=== PATIENT | male | born 1965 | race Caucasian/White ===

== ENCOUNTER 2018-08-21 22:50 | Inpatient (IN) ==
[2018-08-21] MEDS: NS IV ONE ×6 (23:13→23:59)
[2018-08-21 23:42] LABS: BASO# 0.03 X1000 (0.0-0.2); BASO% 0.2 % (0.0-0.8); EOS# 0.13 X1000 (0.0-0.7); EOS% 0.9 % (0.0-10.0); HEMATOCRIT 47.1 % (42.0-52.0); HEMOGLOBIN 15.8 g/dL (14.0-18.0); IMM GRAN# 0.02 X1000 (0.0-0.04); IMM GRAN% 0.1 % (0.0-0.5); LYMPH# 1.47 X1000 (1.2-3.4); LYMPH% 9.7 % (20.5-51.1); MCH 29.3 PG (27-31); MCHC 33.5 g/dL (33-37); MCV 87.2 FL (81-99); MONO# 0.87 X1000 (0.11-0.59); MONO% 5.7 % (1.7-9.3); MPV 9.4 FL (7.4-10.4); NEUT# 12.63 X1000 (1.4-6.5); NEUT% 83.4 % (42.2-75.2); PLT 262 X1000 (130-400); RDW 14.3 % (11.5-14.5); WBC 15.15 X1000 (4.8-10.8)
[2018-08-21] MEDS ORDERED: VANCOMYCIN 1 GM/NS 1 GM/250 ML IVPB IV ONE (23:48)
[2018-08-21] MEDS ORDERED: ZOSYN 3.375 GM in NS 50 ML IV ONE (23:48)
[2018-08-21 23:50] LABS: URINE SOURCE CATH
[2018-08-21] MEDS ORDERED: NS 3,000 ML ONE (23:52)
[2018-08-21 23:55] LABS: BILIRUBIN URINE NEGATIVE (NEGATIVE); BLOOD URINE NEGATIVE (NEGATIVE); COLOR YELLOW; GLUCOSE URINE NEGATIVE (NEGATIVE); KETONE URINE TRACE mg/dL (NEGATIVE); LEUKOCYTES URINE MODERATE (NEGATIVE); NITRITE URINE NEGATIVE (NEGATIVE); PH URINE 5.5; PROTEIN URINE TRACE mg/dL (NEGATIVE); SP GRAVITY URINE 1.026; TURBIDITY URINE CLEAR (CLEAR); UROBILINOGEN URINE 2 mg/dL (NORMAL)
[2018-08-21 23:56] LABS: UR EPITHELIAL CELLS <10 /HPF (<10); URINE BACTERIA NEGATIVE /HPF; URINE RBC <10 /HPF (<10); URINE WBC TNTC /HPF (<10)
[2018-08-22 00:10] LABS: AGAP 11; ALB/GLOB RATIO 1.2; ALBUMIN 3.9 g/dL (3.5-5.0); ALKALINE PHOSPHATASE 54 U/L (32-122); BUN 19 mg/dL (8-22); CALCIUM 8.8 mg/dL (8.8-10.2); CHLORIDE 103 mmol/L (98-107); COSMO 286; CREATININE 0.8 mg/dL (0.7-1.2); ESTIMATED GFR > 60; GLUCOSE 216 mg/dL (70-104); GOT 16 U/L (10-34); GPT 8 U/L (10-44); POTASSIUM 4.3 mmol/L (3.5-5.1); SODIUM 139 mmol/L (136-145); TCO2 25 mmol/L (25-35); TOTAL BILIRUBIN 0.37 mg/dL (0.20-1.00); TOTAL PROTEIN 7.2 g/dL (6.3-8.3)
[2018-08-22] MEDS ORDERED: NS 1,000 ML IV SCH (00:15)
[2018-08-22] MEDS ORDERED: NS 700 ML IV ONE (00:19)
[2018-08-22 00:37] LABS: ALLEN TEST YES; BE 1.6 mmoll (-3.0-3.0); BLOOD TYPE ARTERIAL; O2(CT) 21.3 mL/dL (15.0-23.0); O2HB 93.5 % (95.0-99.0); PCO2(98.6) 42 mmHg (35-45); PO2(98.6) 68 mmHg (60-100); SAMPLE BLOOD; SAO2 96.2 % (95.0-100.0); THB 16.2 g/dL (11.5-17.4); pH(98.6) 7.41 (7.35-7.45)
[2018-08-22 00:39] LABS: MODALITY CANNULA
--- NOTE | 2018-08-22 00:46 | PROVIDER DOCUMENTATION ---
This chart was entered by Kat Bailey Scribe, acting as scribe for Eduardo Rojo MD. HPI-Respiratory General - General Chief Complaint: Shortness of Breath Stated Complaint: aspiration Time Seen by Provider: 08/21/18 23:11 Source: RN/, EMS Allergies/Adverse Reactions: Patient Allergies Allergy/AdvReac Type Severity Reaction Status Date / Time sedative and relaxants AdvReac Mild makes pt Uncoded 04/10/16 10:07 wild Home Medications: Home Medication List Medication Instructions Recorded Confirmed Last Taken Type Polyethylene Glycol 3350 [Miralax] 17 gm PO HS PRN #30 powd.pack 05/16/13 04/10/16 03/21/16 06:00 Rx 17 GM Pramipexole Di-HCl [Mirapex] 1.5 mg PO TID 05/28/14 04/10/16 04/10/16 06:00 History 1.5 MG Ascorbic Acid [Vitamin C] 1,000 mg PO DAILY 05/29/14 04/10/16 04/09/16 06:00 History 1000 MG Multivitamin [Roger Multivitamin] 1 each PO DAILY 05/29/14 04/10/16 04/09/16 06:00 History 1 EACH Mjugyfaw-Ozpbmzn-Xotv 149-Hyal 1 each PO DAILY 05/05/15 04/10/16 04/09/16 06:00 History [Glucosamine Chondroitin Tablet] 1 EACH Psyllium Husk [Fiber] 0.52 gm PO DAILY 05/05/15 04/10/16 04/09/16 06:00 History 0.52 GM Acetaminophen [Tylenol] 650 mg PO Q6H PRN PRN #0 tablet 04/16/16 Unknown Rx Levalbuterol Neb [Xopenex Neb] 1.25 mg INH RTQ4H PRN #5 neb 04/16/16 Unknown Rx Carbidopa/Levodopa [Sinemet 25/100] 2 each PO 0700,1100,1600,2000 #0 04/21/16 Unknown Rx tablet Docusate Sodium [Colace] 100 mg PO BID #0 capsule 04/21/16 Unknown Rx Bisacodyl [Dulcolax] 10 mg MS QHS #0 supp 05/02/16 Unknown Rx Levetiracetam [Keppra] 500 mg PO BID #60 tablet 05/02/16 Unknown Rx Tamsulosin [Flomax] 0.4 mg PO BID #0 capsule 05/02/16 Unknown Rx - History of Present Illness-Resp Nature of Presenting Problem: 53 yom presents to er w/rn and ems w/cc pt is non verbal and has hx of cerebral palsy. ems sts that pt aspirated, suctioned 50-75CC of brown/parnell fluid from lungs station captain. rn sts pt is from [facility], had sob and aspirated. Context: reports: aspiration/choking Review of Systems - Adult - REVIEW OF SYSTEMS - ADULT ROS:: limited per condition (pt is nonverbal and has cerebral palsy, won't cooperate) Constitutional: reports: no symptoms reported Eyes: reports: no symptoms reported Ears, Nose, Mouth & Throat: reports: no symptoms reported Cardiovascular: reports: no symptoms reported Respiratory: reports: see HPI, shortness of breath, other (aspiration). denies: chronic cough, cough, pleurisy Gastrointestinal: reports: no symptoms reported Genitourinary: reports: no symptoms reported Musculoskeletal: reports: no symptoms reported Integumentary: reports: no symptoms reported Neurological: reports: no symptoms reported Psychiatric: reports: no symptoms reported Endocrine: reports: no symptoms reported Hematologic/Lymphatic: reports: no symptoms reported Allergic/Immunologic: reports: no symptoms reported All Other Systems: Reviewed and Negative Past History - Adult - PAST MEDICAL HISTORY-ADULT Review of Records: reports: Old Records Reviewed, Nursing Assessment Review, Medications Reviewed, Social history reviewed & non-contributory. Major Childhood Illnesses: reports: denies history Cardiovascular: reports: CAD Respiratory: reports: asthma Gastrointestinal: reports: GERD Obstetrical/Gynecological: reports: denies history Genitourinary: reports: denies history Musculoskeletal: reports: denies history Neurological: reports: Seizures/Epilepsy (childhood) Psychiatric: reports: other (mild MR) Endocrine/Immune: reports: denies history Other Conditions: reports: other (cereberal palsy) - PRIOR SURGERIES/PROCEDURES Surgical/Procedure History: reports: orthopedic (extremity) (foot), other (heart surgery as a child) - PRIOR HOSPITALIZATIONS Prior Hospitalizations: reports: for other non-related - IMMUNIZATION STATUS Childhood Immunizations: See Nurse Assessment Flu Vaccine: See Nurse Assessment - FAMILY HISTORY Family History: reviewed, not pertinent - SOCIAL HISTORY Smoking: non-smoker Substance Use: none/never Physical Exam-General - PHYSICAL EXAM-ADULT Initial Vital Signs Reviewed: Yes - CONSTITUTIONAL General Appearance: mild distress, other (pt grunting inchoerently in room). negative: cachetic, anxious, combative - EYES Eyes: other (pt refused to do eye exam) - HEAD, EARS, NOSE, MOUTH & THROAT HENMT: normocephalic/atraumatic. negative: moist mucous membranes, normal ENT inspection (unable to examine pt due to him being uncooperative, pt sucked on tongue depressor) - NECK Neck: full range of motion, supple, normal inspection - RESPIRATORY Respiratory: chest non-tender, lungs clear, normal breath sounds - CARDIOVASCULAR Cardiovascular: normal peripheral pulses, regular rate, rhythm - MUSCULOSKELETAL Back Exam: normal inspection Extremity: normal range of motion, non-tender, normal inspection Peripheral Pulses: radial (R): 2+, radial (L): 2+ - SKIN Integumentary: normal color, normal turgor, warm/dry - NEUROLOGIC Neurologic: grossly normal, no motor/sensory deficits. negative: reference librarian II-XII nml as tested - PSYCHIATRIC Psych/Mental Status: disoriented x 3. negative: oriented x 3 Progress - PLAN OF CARE/RESULTS Progress/Plan/Lab Results: Vital Signs - 8 hr 08/21/18 23:00 Temperature 97.7 F Pulse Rate 120 H Respiratory Rate 18 Blood Pressure 113/72 O2 Sat by Pulse Oximetry 93 L Laboratory Results - last 24 hr 08/21/18 08/21/18 08/21/18 23:19 23:30 23:30 WBC 15.15 H RBC 5.40 Hgb 15.8 Hct 47.1 MCV 87.2 MCH 29.3 MCHC 33.5 RDW Std Deviation 14.3 Plt Count 262 MPV 9.4 Immature Gran % (Auto) 0.1 Neut % (Auto) 83.4 H Lymph % (Auto) 9.7 L [place] % (Auto) 5.7 Eos % (Auto) 0.9 Baso % (Auto) 0.2 Immature Gran # (Auto) 0.02 Neut # (Auto) 12.63 H Lymph # (Auto) 1.47 [place] # (Auto) 0.87 H Eos # (Auto) 0.13 Baso # (Auto) 0.03 Specimen Type Sample Site pH pCO2 pO2 HCO3 Base Excess Oxyhemoglobin ABG O2 Sat (Calculated) ABG O2 Saturation ABG Carboxyhemoglobin ABG Methemoglobin Missael Test A-a O2 Difference Total Hemoglobin Lactate Liter Flow Blood Gas Modality FiO2 % Sodium 139 Potassium 4.3 Chloride 103 Carbon Dioxide 25 Anion Gap 11 BUN 19 Creatinine 0.8 Estimated GFR/1.73 m2 > 60 BUN/Creatinine Ratio 24 Glucose 216 H Calculated Osmolality 286 Calcium 8.8 Total Bilirubin 0.37 AST 16 ALT 8 L Alkaline Phosphatase 54 Total Protein 7.2 Albumin 3.9 Globulin 3.3 Albumin/Globulin Ratio 1.2 Plasma Lactate Urine Source CATH Urine Color YELLOW Urine Turbidity CLEAR Urine pH 5.5 Ur Specific [place] 1.026 Urine Protein TRACE A Ur Glucose (Stick) NEGATIVE Ur Ketones (Stick) TRACE A Urine Blood NEGATIVE Urine Nitrite NEGATIVE Urine Bilirubin NEGATIVE Urobilinogen Dipstick 2 A Urine Leukocytes MODERATE A Urine WBC (Auto) TNTC A Urine RBC (Auto) <10 U Epithel Cells (Auto) <10 Urine Bacteria (Auto) NEGATIVE 08/21/18 08/22/18 23:30 00:30 WBC RBC Hgb Hct MCV MCH MCHC RDW Std Deviation Plt Count MPV Immature Gran % (Auto) Neut % (Auto) Lymph % (Auto) [place] % (Auto) Eos % (Auto) Baso % (Auto) Immature Gran # (Auto) Neut # (Auto) Lymph # (Auto) [place] # (Auto) Eos # (Auto) Baso # (Auto) Specimen Type ARTERIAL Sample Site R RADIAL pH 7.41 pCO2 42 pO2 68 HCO3 26.0 Base Excess 1.6 Oxyhemoglobin 93.5 L ABG O2 Sat (Calculated) 21.3 ABG O2 Saturation 96.2 ABG Carboxyhemoglobin 1.80 ABG Methemoglobin 1.0 Missael Test YES A-a O2 Difference 108.0 Total Hemoglobin 16.2 Lactate 1.80 Liter Flow 3.0 Blood Gas Modality CANNULA FiO2 % 32.0 Sodium Potassium Chloride Carbon Dioxide Anion Gap BUN Creatinine Estimated GFR/1.73 m2 BUN/Creatinine Ratio Glucose Calculated Osmolality Calcium Total Bilirubin AST ALT Alkaline Phosphatase Total Protein Albumin Globulin Albumin/Globulin Ratio Plasma Lactate 1.6 Urine Source Urine Color Urine Turbidity Urine pH Ur Specific [place] Urine Protein Ur Glucose (Stick) Ur Ketones (Stick) Urine Blood Urine Nitrite Urine Bilirubin Urobilinogen Dipstick Urine Leukocytes Urine WBC (Auto) Urine RBC (Auto) U Epithel Cells (Auto) Urine Bacteria (Auto) Orders Category Date Time Status CHEST-1 VIEW [RAD] Stat Exams 08/21/18 23:13 Taken ABG [RESP] Routine Lab 08/21/18 23:24 Completed BLOOD CULTURE [BLDCUL] Stat Lab 08/21/18 23:30 Results CBC WITH DIFF [HEME] Stat Lab 08/21/18 23:30 Completed COMPREHENSIVE METABOLIC PANEL [CHEM] Stat Lab 08/21/18 23:30 Completed LACTATE, PLASMA [CHEM] Stat Lab 08/21/18 23:30 Completed URINALYSIS W/POSS RFLX CULT [URINALYSIS] Stat Lab 08/21/18 23:19 Completed URINE CULTURE [RM] Routine Lab 08/22/18 00:00 Received 0.9% Sodium Chloride Inj [Ns] 1,000 ml Med 08/21/18 23:13 Discontinued 0.9% Sodium Chloride Inj [Ns] 1,000 ml 0.9% Sodium Chloride Inj [Ns] 700 ml IV 999 mls/hr 0.9% Sodium Chloride Inj [Ns] 1,000 ml Med 08/22/18 00:15 Discontinued IV Q1H 0.9% Sodium Chloride Inj [Ns] 700 ml Med 08/22/18 00:19 Active IV ONCE Piperacillin/Tazobactam [Zosyn] 3.375 gm Med 08/21/18 23:48 Discontinued 0.9% Sodium Chloride Inj [Ns] 50 ml IV NOW Vancomycin 1 gm/Ns Med 08/21/18 23:48 Active 1 gm in 250 ml IV NOW Result Diagrams: 08/21/18 23:30 08/21/18 23:30 - EKG 1 Time of EKG reading by physician:: 23:12 EKG Read and Signed by:: Eduardo Rojo EKG Interpretation (*Must complete 3 of following elements*): Abnormal Rate: 118 (possible left atrial enlargement ) Rhythm: ST QRS: RBB MS Interval: normal ST Wave: normal - CONSULTS/PCP/HOSPITALIST Notification #1 *Consult/PCP/Hospitalist*: Alexis Time Discussed: 00:00 Consult Disposition: Will see in ED, Admit Departure - Departure Date of Disposition Decision: 08/22/18 Time of Disposition Decision: 00:08 DIAGNOSIS: Aspiration pneumonia Qualifiers: Aspiration pneumonia type: due to regurgitated food Laterality: unspecified laterality Lung location: unspecified part of lung Qualified Code(s): J69.0 - Pneumonitis due to inhalation of food and vomit Urinary tract infection Qualifiers: Urinary tract infection type: acute cystitis Hematuria presence: without hematuria Qualified Code(s): N30.00 - Acute cystitis without hematuria Disposition: ADMITTED INPATIENT 09 Certified Medical Emergency: Urgent Condition: Fair Referrals and Follow-Ups: None,PCP [Primary Care Provider] - - Critical Care Note This patient required my direct & personal management of CC.: No Attestation - Physician/ LESIA Attestation Patient care was provided by Advanced Practice Provider:: No The physician spent face to face time with patient:: Yes Advanced Practice Provider documentation review:: Supervising physician onsite and consulted in the evaluation and care of this patient. The physician did have a face to face encounter with the patient. This chart was documented by the indicated scribe, (Kat Bailey Scribe) and accurately reflects the services I performed and decisions made by me, Eduarod Rojo MD, as attested by the provider's signature.
--- NOTE | 2018-08-22 02:37 | HISTORY AND PHYSICAL ---
PRIMARY CARE PHYSICIAN: Unknown. CHIEF COMPLAINT: Shortness of breath, possible aspiration. HISTORY OF PRESENTING ILLNESS: The patient is a 53-year-old male with a history of cerebral palsy, Parkinson's and seizure disorder who resides at [facility] and was sent to the emergency department due to the patient having shortness of breath. It was suspected possibly he aspirated. The patient basically was not communicative at the time of my examination, and most of the history is obtained from his mother. His mother states that he was not feeling well and the skilled nursing called her. PAST MEDICAL HISTORY: Includes cerebral palsy, Parkinson's, seizure disorder. PAST SURGICAL HISTORY: Tetralogy of Fallot repair. ALLERGIES: To sedatives and relaxants. CURRENT MEDICATIONS: Include Tylenol 50 mg p.o. q.6 hours, ascorbic acid 1000 mg p.o. daily, carbidopa levodopa 2500 two tablets p.o. q.i.d., Xopenex nebulizers q.4 hours, Keppra 500 mg p.o. b.i.d., Mirapex 1.5 mg p.o. t.i.d., Flomax 0.4 mg p.o. b.i.d. SOCIAL HISTORY: No history of smoking, alcohol or illicit drug use. He resides at [facility]. FAMILY HISTORY: No history of coronary disease. REVIEW OF SYSTEMS: Unable to obtain because the patient did not want to communicate. PHYSICAL EXAMINATION: GENERAL: The patient is somewhat in moderate respiratory distress. He is put on supplemental oxygen and deep suctioning was done. VITAL SIGNS: Temperature 97.7 degrees, pulse 120, respiration 18, blood pressure 113/72. HEENT: Atraumatic, normocephalic. NECK: No masses. CHEST: Rhonchi. CARDIOVASCULAR: Regular rate and rhythm. ABDOMEN: Soft. Positive bowel sounds. EXTREMITIES: No edema. NEUROLOGIC: He is awake and alert. GENITOURINARY: No bladder distention. SKIN: Warm. LABORATORIES AND STUDIES: WBC 15.15, hemoglobin 15.8, hematocrit 47.1, platelets 262,000. Sodium 139, potassium 4.3, chloride 103, CO2 is 25, BUN is 19, creatinine is 0.8, glucose 216. ASSESSMENT: The patient is a 53-year-old male with a history of cerebral palsy, Parkinson's and seizure disorder who was sent from [facility] due to the patient having shortness of breath. It was suspected possibly he aspirated. He was evaluated in the emergency department. He had imaging done as per the emergency room physician, it seemed that he had aspiration pneumonia. He seemed to be somewhat in respiratory distress. He had a deep suctioning by respiratory; however, he will need to be admitted to the Intensive Care Unit for further evaluation and management. 1. Suspected aspiration pneumonia. 2. Respiratory distress. 3. Cerebral palsy. 4. Seizure disorder. PLAN: 1. We will admit the patient to ICU. 2. We will check blood cultures and start the patient on IV antibiotics. 3. We will continue with deep suctioning. 4. Continue with DuoNebs. 5. If he worsens the patient may have to be intubated. 6. We will put the patient on seizure precautions. 7. We will restart his home medications. 8. We will put patient on DVT prophylaxis with SCD. 9. We will continue to follow, reassess and make further recommendation based on the patient's clinical course. The patient's condition is guarded. cc: Reji Espinoza MD
[2018-08-22] MEDS ORDERED: ZOSYN 3.375 GM in NS 50 ML IV SCH (02:53)
[2018-08-22] MEDS ORDERED: NS NEB INH SCH (02:53)
[2018-08-22] MEDS ORDERED: OFIRMEV 1000 MG/ISOTONIC SOLN 1,000 MG/100 ML BOTTLE IV ONE (03:10)
[2018-08-22] MEDS ORDERED: CALMOSEPTINE OINTMENT TOP PRN (04:59)
--- NOTE | 2018-08-22 05:35 | Diag Imaging Result Doc PS360 ---
EXAM: CHEST-1 VIEW HISTORY: sepsis TECHNIQUE: Chest single view COMPARISON: 04/29/2016 FINDINGS: The lungs are well expanded. The heart is not enlarged. There are mild increased interstitial markings. No effusion identified. There are several old rib fractures. The IMPRESSION: Small infiltrates versus pulmonary edema. Electronically signed by El Che 08/22/2018 5:32 AM
--- NOTE | 2018-08-22 07:54 | EKG Report ---
Test Performed on : 08/21/2018 11:08:33 PM Test Reason : ASPIRATION Blood Pressure : / mmHG Vent. Rate : 118 BPM Atrial Rate : 118 BPM P-R Int : 136 ms QRS Dur : 148 ms QT Int : 348 ms P-R-T Axes : 059 267 057 degrees QTc Int : 487 ms Sinus tachycardia. Possible Left atrial enlargement Right bundle branch block Abnormal ECG When compared with ECG of 10-APR-2016 09:38, No significant change was found Unconfirmed Result
[2018-08-22] MEDS: XOPENEX NEB INH SCH ×6 (08:11→22:58)
[2018-08-22] MEDS ORDERED: MIRALAX PO PRN (08:34)
[2018-08-22] MEDS ORDERED: MIRAPEX PO SCH (09:00)
--- NOTE | 2018-08-22 09:22 | PROGRESS NOTE ---
DATE: 08/22/2018 INTERVAL HISTORY: Mr. Reynaga was admitted for acute hypoxic respiratory failure and left lower lobe pneumonia leading to sepsis. Overnight in ICU, he did not have any acute events. His heart rate has decreased and he has not had any more fever episodes. SUBJECTIVE: The patient is minimally verbal. The patient's mother is at bedside. She feels that the patient is looking significantly better. The patient has been having coughing for a few weeks now, especially at the time of eating. OBJECTIVE: Vitals: Temperature 98.7 degrees, pulse 90, respiratory rate 17, blood pressure 110/70, saturating 99% on Venturi mask. General: Does not appear in any acute distress. He keeps on moaning and groaning, which is baseline for him. Cardiovascular: S1, S2 appears normal. No wheeze, no murmur, rub or gallop. Lungs: Air entry decreased on left inframammary region with inspiratory crackles. No wheeze or rhonchi. Abdomen: Soft, nontender. He has urine catheter. Extremities: No lower extremity edema. Neurologic: He is drowsy, but arousable. LABORATORIES: His ABG had a PO2 of 68 on nasal cannula. His electrolytes were otherwise unremarkable. Urine culture and blood culture is in lab. He was not having any urinary symptoms though. ASSESSMENT: 1. Sepsis and acute hypoxic respiratory failure, likely due to left lower lobe aspiration pneumonia. 2. History of cerebral palsy, Parkinson's disease and seizure disorder. PLAN: I will change antibiotics to intravenous ceftriaxone and metronidazole. I will get a urine Streptococcus and Legionella antigen and I will follow up final blood culture results. I will get MAKING DEPARTMENT PREPARER evaluation Ccontinue to monitor patient in ICU for another 24 hours. Plan of care discussed with patient's mother. All of her questions have been answered. I will also resume most of the home medications for Parkinson's disease, cerebral palsy and seizure. TIME SPENT: More than 30 minutes of critical care time was spent in taking care of this patient. cc: Trent Benjamin MD [facility]
[2018-08-22] MEDS: COLACE PO SCH ×3 (09:27→22:08)
[2018-08-22] MEDS: SINEMET CR 25/100 PO SCH ×3 (09:28→22:08)
[2018-08-22] MEDS: MIRAPEX PO SCH ×3 (09:28→22:08)
[2018-08-22] MEDS: KEPPRA PO SCH ×3 (09:28→22:12)
[2018-08-22] MEDS: METAMUCIL PO SCH ×2 (09:29→10:00)
[2018-08-22] MEDS: CENTRUM SILVER PO SCH ×2 (09:29→09:59)
[2018-08-22] MEDS: AYR NASAL SPRAY NAS SCH ×2 (09:30→22:11)
[2018-08-22] MEDS: ROCEPHIN 1 GM in NS 50 ML IV SCH (09:31)
[2018-08-22] MEDS: FLOMAX PO SCH ×3 (09:31→22:08)
[2018-08-22] MEDS: FLAGYL 500 MG/NS 500 MG/100 ML IVPB IV SCH ×2 (09:31→16:50)
[2018-08-22] MEDS ORDERED: PRILOSEC PO SCH (11:00)
[2018-08-22] MEDS: RASAGILINE MESYLATE PO SCH (13:27)
[2018-08-22] MEDS: LR 1,000 ML IV SCH (16:03)
--- NOTE | 2018-08-22 16:10 | Diag Imaging Result Doc PS360 ---
CHEST-PORTABLE - 08/22/2018 INDICATION: NGT placement COMPARISON: 08/21/2018 FINDINGS: There is a nasogastric tube in good position in the stomach. IMPRESSION: Nasogastric tube in the stomach. Electronically signed by Hema Solis 08/22/2018 4:08 PM
[2018-08-23] MEDS: FLAGYL 500 MG/NS 500 MG/100 ML IVPB IV SCH ×3 (01:26→16:36)
[2018-08-23] MEDS: XOPENEX NEB INH SCH ×6 (02:50→23:19)
[2018-08-23] MEDS: LR 1,000 ML IV SCH (06:21)
[2018-08-23] MEDS: SINEMET 25/100 PO SCH (06:23)
[2018-08-23 07:10] LABS: AGAP 11; BUN 16 mg/dL (8-22); CALCIUM 8.4 mg/dL (8.8-10.2); CHLORIDE 103 mmol/L (98-107); COSMO 281; CREATININE 0.7 mg/dL (0.7-1.2); ESTIMATED GFR > 60; GLUCOSE 139 mg/dL (70-104); POTASSIUM 4.2 mmol/L (3.5-5.1); SODIUM 139 mmol/L (136-145); TCO2 25 mmol/L (25-35)
[2018-08-23 07:15] LABS: BASO# 0.04 X1000 (0.0-0.2); BASO% 0.2 % (0.0-0.8); EOS# 0.53 X1000 (0.0-0.7); EOS% 2.7 % (0.0-10.0); HEMATOCRIT 45.3 % (42.0-52.0); HEMOGLOBIN 14.9 g/dL (14.0-18.0); IMM GRAN# 0.04 X1000 (0.0-0.04); IMM GRAN% 0.2 % (0.0-0.5); LYMPH# 1.85 X1000 (1.2-3.4); LYMPH% 9.3 % (20.5-51.1); MCH 29.7 PG (27-31); MCHC 32.9 g/dL (33-37); MCV 90.2 FL (81-99); MONO% 4.5 % (1.7-9.3); MPV 9.7 FL (7.4-10.4); NEUT# 16.51 X1000 (1.4-6.5); NEUT% 83.1 % (42.2-75.2); PLT 179 X1000 (130-400); RBC 5.02 XMIL (4.7-6.1); RDW 14.7 % (11.5-14.5); WBC 19.87 X1000 (4.8-10.8)
[2018-08-23 07:46] LABS: ALBUMIN 3.2 g/dL (3.5-5.0); MAGNESIUM 2.2 mg/dL (1.5-2.7); PHOSPHORUS 2.7 mg/dL (2.7-4.5); PREALBUMIN 11.7 mg/dL (20-40)
[2018-08-23] MEDS ORDERED: VASELINE TOP PRN (08:59)
[2018-08-23] MEDS: COLACE PO SCH ×2 (09:18→20:05)
[2018-08-23] MEDS: METAMUCIL PO SCH (09:19)
[2018-08-23] MEDS: KEPPRA PO SCH ×2 (09:19→20:05)
[2018-08-23] MEDS: MIRAPEX PO SCH ×2 (09:19→20:05)
[2018-08-23] MEDS: CENTRUM SILVER PO SCH (09:19)
[2018-08-23] MEDS: SINEMET CR 25/100 PO SCH ×2 (09:20→20:05)
[2018-08-23] MEDS: FLOMAX PO SCH ×2 (09:20→20:05)
[2018-08-23] MEDS: LOVENOX SUBQ SCH (09:20)
[2018-08-23] MEDS: AYR NASAL SPRAY NAS SCH (09:20)
[2018-08-23] MEDS: RASAGILINE MESYLATE PO SCH (11:00)
[2018-08-23] MEDS: ROCEPHIN 1 GM in NS 50 ML IV SCH (11:01)
--- NOTE | 2018-08-23 12:31 | PROGRESS NOTE ---
DATE: 08/23/2018 INTERVAL HISTORY: No acute events overnight. He does not have any fever episode. He had failed his swallow evaluation yesterday and an NG tube was placed and NG tube feeding was started. VITALS: Currently, he has been afebrile with temperature of 98.3 degrees, pulse of 94, respiratory rate 19, blood pressure 99/52. He is saturating 97% on 50% Ventimask. PHYSICAL EXAMINATION: General: Does not appear in any acute distress. He keeps on moaning during examination, which is his baseline. Oral cavity is dry. Lungs: Air entry decreased with inspiratory crackles on the left inframammary region. No wheeze or rhonchi. S1, S2 normal. No murmur, rub, or gallop. Abdomen: Soft, nontender. He has urine catheter. No lower extremity edema. He is alert on my repeat examination and he is interactive with his family by mostly gestures and yes or no. LABS: Suggestive of persistent leukocytosis. Normal hemoglobin, hematocrit, and platelet count. His electrolytes are within acceptable range. MICROBIOLOGY: Blood culture is in lab. Urine culture is gram-positive cocci. However, no symptoms were reported to me. IMAGING: No new imaging. ASSESSMENT AND PLAN: 1. Sepsis and acute hypoxic respiratory failure due to left lower lobe aspiration pneumonia. Follow up urine streptococcus and legionella antigen, final blood culture results. Continue intravenous ceftriaxone and metronidazole. 2. Likely asymptomatic bacteriuria. Continue input and output monitoring with North catheter. I will not add antibiotics as patient has been asymptomatic. 3. History of cerebral palsy and Parkinson's disease with seizure disorder. I will continue him on his home medication of carbidopa/levodopa, pramipexole, levetiracetam. 4. History of urinary retention. I will continue him on home tamsulosin. 5. Poor oral intake. He failed his speech evaluation yesterday. This could be in the setting of his sepsis and weakness from that. I will continue nasogastric tube feedings and follow up with subsequent speech/language pathology evaluation. Based on that, I will resume his diet. 6. Disposition. The patient is still significantly hypoxic and I will continue to monitor patient in the intensive care unit. TIME SPENT: More than 30 minutes of critical care time were spent in taking care of this patient. I discussed his plan of care with his mother at bedside. All of her questions have been answered. cc: Trent Benjamin MD [facility]
[2018-08-24] MEDS: FLAGYL 500 MG/NS 500 MG/100 ML IVPB IV SCH ×3 (01:52→16:05)
[2018-08-24] MEDS: XOPENEX NEB INH SCH ×6 (03:24→23:29)
[2018-08-24] MEDS: SINEMET 25/100 PO SCH (04:30)
[2018-08-24 05:40] LABS: BASO# 0.02 X1000 (0.0-0.2); BASO% 0.2 % (0.0-0.8); EOS# 0.49 X1000 (0.0-0.7); EOS% 4.8 % (0.0-10.0); HEMATOCRIT 41.8 % (42.0-52.0); LYMPH# 1.42 X1000 (1.2-3.4); MCH 29.7 PG (27-31); MCHC 33.5 g/dL (33-37); MCV 88.7 FL (81-99); MONO# 0.59 X1000 (0.11-0.59); MONO% 5.8 % (1.7-9.3); MPV 10.1 FL (7.4-10.4); NEUT# 7.63 X1000 (1.4-6.5); NEUT% 75.2 % (42.2-75.2); PLT 190 X1000 (130-400); RBC 4.71 XMIL (4.7-6.1); RDW 14.2 % (11.5-14.5); WBC 10.15 X1000 (4.8-10.8)
[2018-08-24 06:05] LABS: AGAP 10; BUN 8 mg/dL (8-22); CALCIUM 8.4 mg/dL (8.8-10.2); CHLORIDE 103 mmol/L (98-107); COSMO 280; CREATININE 0.6 mg/dL (0.7-1.2); ESTIMATED GFR > 60; GLUCOSE 174 mg/dL (70-104); POTASSIUM 3.8 mmol/L (3.5-5.1); SODIUM 139 mmol/L (136-145); TCO2 26 mmol/L (25-35)
[2018-08-24] MEDS: AYR NASAL SPRAY NAS SCH ×3 (07:25→20:10)
[2018-08-24] MEDS ORDERED: VANCOMYCIN IV PER PHARMACY MISC SCH (08:00)
--- NOTE | 2018-08-24 08:20 | PROGRESS NOTE ---
DATE: 08/24/2018 SUBJECTIVE: Patient is lying in bed. No acute events overnight. Vital signs at this moment are stable. He is tolerating nasal cannula at 3 L. WBC improved from 19 to 10. We have a urine culture that showed gram-positive cocci. I will add vancomycin to his medications. This patient has a history of cerebral palsy, Parkinson's disease, and seizure disorder. I am not sure if this patient is having urinary symptoms, so I will treat it. OBJECTIVE: Vital Signs: Temperature 97.2 degrees, pulse 82, respiratory rate 16, blood pressure 113/61, oxygen saturation 98 on 3 L of nasal cannula. HEENT: Head normocephalic. No trauma. PERRLA. He keeps moaning during my examination, which apparently is his baseline. Neck: Supple. No JVD. Central trachea. Chest: Decreased breath sounds at the bases with some crepitus and mild crackles, mostly on the left side base. No wheezing. Cardiovascular: RRR. Abdomen: Soft, nontender, nondistended. No hepatosplenomegaly. He has a urine catheter. Extremities: No edema. No clubbing. No cyanosis. Neurological Examination: This patient is alert but he is not following commands for me. He follows the practitioner with his eyes. Laboratory: WBC 10.1, hemoglobin 14, hematocrit 41.8, platelets 190,000. Sodium 139, potassium 3.8, chloride 103, bicarbonate 26, BUN 8, creatinine 0.6, glucose 174, calcium 8.4. ASSESSMENT AND PLAN: 1. Sepsis secondary to pneumonia, which is likely aspiration pneumonia. It looks like we did a swallow evaluation and he failed. A nasogastric tube has been placed. We will continue with the same management. I requested a sputum culture. Continue with ceftriaxone and Flagyl since his symptoms, oxygen need, and WBC are getting better. 2. Urinary tract infection. I am not quite sure if this is symptomatic or not. He has a positive culture that showed gram-positive cocci. I will add vancomycin to his medications. 3. Sepsis. This patient meets criteria for sepsis. Continue with the same management. I think he is getting better. 4. Hypoxemic respiratory failure, likely secondary to left lower lobe pneumonia. Continue with the same management. 5. History of urinary retention. Continue with home medications. 6. Poor oral intake. It looks like he failed speech evaluation a couple of days ago. A nasogastric tube has been placed. He is on a diet. 7. History of cerebral palsy, Parkinson's disease, and seizure disorder. Continue with home medications. CRITICAL CARE TIME: 30 minutes. No family members at the bedside. cc: Germain Man MD
--- NOTE | 2018-08-24 08:29 | Diag Imaging Result Doc PS360 ---
EXAM: CHEST-PORTABLE 08/24/2018 HISTORY: NG tube placement TECHNIQUE: AP portable upright at 0806 COMMENT: There is an NG tube with its tip in the body of the stomach. Compared to 08/22/2018 there is improvement in the opacities in the left lower lobe. There is platelike atelectasis in the right base. IMPRESSION: NG tube in the stomach. Electronically signed by Lionel Aguilar 08/24/2018 8:27 AM
[2018-08-24] MEDS: KEPPRA PO SCH ×2 (08:53→20:10)
[2018-08-24] MEDS: CENTRUM SILVER PO SCH (08:53)
[2018-08-24] MEDS: COLACE PO SCH ×2 (08:53→20:10)
[2018-08-24] MEDS: MIRAPEX PO SCH ×2 (08:53→20:09)
[2018-08-24] MEDS: METAMUCIL PO SCH (08:53)
[2018-08-24] MEDS: SINEMET CR 25/100 PO SCH ×2 (08:54→20:19)
[2018-08-24] MEDS: FLOMAX PO SCH ×2 (08:54→20:10)
[2018-08-24] MEDS: LOVENOX SUBQ SCH (08:54)
[2018-08-24] MEDS: RASAGILINE MESYLATE PO SCH (09:19)
[2018-08-24] MEDS ORDERED: VANCOMYCIN 2,250 MG in NS 500 ML IV ONE (09:30)
[2018-08-24] MEDS: ROCEPHIN 1 GM in NS 50 ML IV SCH (11:26)
[2018-08-24] MEDS: TYLENOL PR PRN (16:05)
[2018-08-24] MEDS: VANCOMYCIN 1,750 MG in NS 250 ML IV SCH (23:04)
[2018-08-25] MEDS: FLAGYL 500 MG/NS 500 MG/100 ML IVPB IV SCH ×3 (02:52→16:37)
[2018-08-25] MEDS: XOPENEX NEB INH SCH ×5 (03:39→18:48)
[2018-08-25] MEDS: SINEMET 25/100 PO SCH ×3 (04:13→16:37)
[2018-08-25] MEDS: TYLENOL PR PRN ×3 (04:20→22:21)
[2018-08-25] MEDS ORDERED: TRANSDERM-SCOP TD SCH (06:00)
--- NOTE | 2018-08-25 08:03 | Diag Imaging Result Doc PS360 ---
EXAM: CHEST/ABD TUBE PLACEMENT 08/25/2018 HISTORY: TO CHECK NG TUBE PLACEMENT TECHNIQUE: AP portable at 0743 COMMENT: There is an NG tube with its tip below the diaphragm. There is bilateral lower lobe opacity which may represent atelectasis or pneumonia. The appearance of the visualized portion of the chest has not changed significantly since 08/24/2018. IMPRESSION: NG tube in the stomach. Electronically signed by Lionel Aguilar 08/25/2018 8:01 AM
[2018-08-25 08:09] LABS: BASO# 0.02 X1000 (0.0-0.2); BASO% 0.2 % (0.0-0.8); EOS# 0.56 X1000 (0.0-0.7); EOS% 6.9 % (0.0-10.0); HEMATOCRIT 41.5 % (42.0-52.0); LYMPH# 1.42 X1000 (1.2-3.4); LYMPH% 17.6 % (20.5-51.1); MCH 29.7 PG (27-31); MCHC 33.7 g/dL (33-37); MCV 88.1 FL (81-99); MONO# 0.73 X1000 (0.11-0.59); MONO% 9.1 % (1.7-9.3); MPV 10.2 FL (7.4-10.4); NEUT# 5.33 X1000 (1.4-6.5); NEUT% 66.2 % (42.2-75.2); PLT 207 X1000 (130-400); RBC 4.71 XMIL (4.7-6.1); WBC 8.06 X1000 (4.8-10.8)
[2018-08-25 08:31] LABS: AGAP 9; BUN 7 mg/dL (8-22); CALCIUM 8.7 mg/dL (8.8-10.2); CHLORIDE 101 mmol/L (98-107); COSMO 276; CREATININE 0.6 mg/dL (0.7-1.2); ESTIMATED GFR > 60; GLUCOSE 171 mg/dL (70-104); PHOSPHORUS 3.9 mg/dL (2.7-4.5); POTASSIUM 4.2 mmol/L (3.5-5.1); SODIUM 137 mmol/L (136-145); TCO2 27 mmol/L (25-35)
[2018-08-25] MEDS: LOVENOX SUBQ SCH (09:04)
[2018-08-25] MEDS: CENTRUM SILVER PO SCH (09:05)
[2018-08-25] MEDS: FLOMAX PO SCH ×2 (09:05→21:56)
[2018-08-25] MEDS: METAMUCIL PO SCH (09:05)
[2018-08-25] MEDS: MIRAPEX PO SCH ×2 (09:05→21:56)
[2018-08-25] MEDS: COLACE PO SCH ×2 (09:06→21:56)
[2018-08-25] MEDS: RASAGILINE MESYLATE PO SCH (09:06)
[2018-08-25] MEDS: KEPPRA PO SCH ×2 (09:06→21:56)
[2018-08-25] MEDS: ROCEPHIN 1 GM in NS 50 ML IV SCH (09:09)
[2018-08-25] MEDS: SINEMET CR 25/100 PO SCH (09:31)
[2018-08-25] MEDS: VANCOMYCIN 1,750 MG in NS 250 ML IV SCH ×2 (11:24→22:46)
--- NOTE | 2018-08-25 15:28 | PROGRESS NOTE ---
DATE: 08/25/2018 SUBJECTIVE: Patient is lying comfortably in bed. No acute events overnight. Vital signs are stable, as well as the laboratory. Today, we did a bedside swallow evaluation, and he was able to tolerate p.o. We will remove the NG tube. We will remove the North. We will continue with same management. We will put this patient on a mechanical soft diet. Her mother at the bedside. All their questions were answered. OBJECTIVE: Vital Signs: Temperature 98.5 degrees, pulse 90, respiratory rate 20, blood pressure 120/65, oxygen saturation 96 on room air. HEENT: Head normocephalic, no trauma. PERRLA. He is a little bit sleepy. Neck: Supple. No JVD. Central trachea. Chest: Decreased breath sounds at the bases with some crepitus and mild crackles mostly on the left side. No wheezing. Cardiovascular: RRR. Abdomen is soft, nontender, nondistended. No hepatosplenomegaly. He had a urine catheter in place, which has been removed. Extremities: No edema, no clubbing, no cyanosis. Neurological: This patient is sleepy. He is not following commands for me. He does have cerebral palsy. DIAGNOSTIC STUDIES: WBC 8, hemoglobin 14, hematocrit 41.5, platelets 207,000. Sodium 137, potassium 4.2, chloride 101, bicarbonate 27, BUN 7, creatinine 0.6, glucose 171, calcium 8.7, magnesium 2. ASSESSMENT AND PLAN: 1. Sepsis secondary to pneumonia, which is likely aspiration pneumonia. We re-evaluated this patient today, and he is now swallowing. We have removed the NG tube, and we started this patient on mechanical soft diet. We will monitor this patient closely. 2. Urinary tract infection. I am not quite sure if he is symptomatic or not. He is on ceftriaxone. He has a Staphylococcus epidermidis. 3. Sepsis. This patient met criteria for sepsis with a source of infection like pneumonia. He is getting better. WBC normalized. 4. Hypoxemic respiratory failure, likely secondary to left lower lobe pneumonia. Continue with same management. He is not on oxygen at this moment. We will continue to monitor breathing treatment and antibiotics. 5. History of urinary retention. Continue with home medications. 6. Poor oral intake. It looks like he is tolerating p.o. today. We will continue to monitor this closely. 7. History of cerebral palsy, Parkinson's disease, and seizure disorder. Continue with home medications. 8. Hyperglycemia. I will check a hemoglobin A1c to rule out diabetes. cc: Germain Man MD
[2018-08-25] MEDS: AYR NASAL SPRAY NAS SCH (21:57)
[2018-08-26] MEDS: AYR NASAL SPRAY NAS SCH ×3 (00:04→23:14)
[2018-08-26] MEDS: XOPENEX NEB INH SCH ×7 (00:15→23:43)
[2018-08-26] MEDS: FLAGYL 500 MG/NS 500 MG/100 ML IVPB IV SCH (00:48)
[2018-08-26 07:50] LABS: BASO# 0.05 X1000 (0.0-0.2); BASO% 0.8 % (0.0-0.8); EOS# 0.52 X1000 (0.0-0.7); EOS% 8.1 % (0.0-10.0); HEMATOCRIT 43.3 % (42.0-52.0); HEMOGLOBIN 14.6 g/dL (14.0-18.0); IMM GRAN# 0.02 X1000 (0.0-0.04); IMM GRAN% 0.3 % (0.0-0.5); LYMPH# 1.57 X1000 (1.2-3.4); LYMPH% 24.5 % (20.5-51.1); MCH 29.4 PG (27-31); MCHC 33.7 g/dL (33-37); MCV 87.3 FL (81-99); MONO# 0.74 X1000 (0.11-0.59); MONO% 11.5 % (1.7-9.3); NEUT# 3.51 X1000 (1.4-6.5); NEUT% 54.8 % (42.2-75.2); PLT 232 X1000 (130-400); RBC 4.96 XMIL (4.7-6.1); WBC 6.41 X1000 (4.8-10.8)
[2018-08-26] MEDS: SINEMET 25/100 PO SCH ×3 (07:58→21:23)
[2018-08-26 08:06] LABS: HEMOGLOBIN A1C 5.9 % (4.8-6.0)
[2018-08-26 08:08] LABS: AGAP 12; BUN 9 mg/dL (8-22); CALCIUM 8.5 mg/dL (8.8-10.2); CHLORIDE 99 mmol/L (98-107); COSMO 270; CREATININE 0.7 mg/dL (0.7-1.2); ESTIMATED GFR > 60; GLUCOSE 117 mg/dL (70-104); POTASSIUM 4.4 mmol/L (3.5-5.1); SODIUM 135 mmol/L (136-145); TCO2 24 mmol/L (25-35)
[2018-08-26] MEDS: LOVENOX SUBQ SCH (10:00)
[2018-08-26] MEDS ORDERED: DULCOLAX PR ONE ×2 (11:21→20:35)
[2018-08-26] MEDS ORDERED: NS 1,000 ML IV SCH (11:30)
--- NOTE | 2018-08-26 14:52 | Diag Imaging Result Doc PS360 ---
EXAM: CHEST-1 VIEW INDICATION: NG tube placement TECHNIQUE: One view COMPARISON: 08/25/2018 FINDINGS: The NG tube projects below the diaphragm and is assumed to be in the lumen of the stomach in the expected position. Right basilar subsegmental atelectasis is stable. No new consolidations are identified. Cardiac silhouette is stable. IMPRESSION: NG tube identified in the expected position as described. Stable chest, otherwise. Electronically signed by Marcel Bailey 08/26/2018 2:50 PM
--- NOTE | 2018-08-26 15:44 | PROGRESS NOTE ---
DATE: 08/26/2018 SUBJECTIVE: This patient is lying in bed but he is sleepy, he is not following commands or waking up for me, apparently since yesterday he has not been eating or drinking or taking his medications. I discussed the case with the mother which is at the bedside as well as the brother, we will go ahead and place again an NG tube to start feeding this patient and giving him treatment, initially he failed a swallow evaluation but then yesterday he was able to swallow in the morning. I will continue with antibiotics. I will get pulmonary department evaluation, I will put him on some fluids, laboratory and probably x-ray in the morning. For constipation I will ask for 1 time dose of Dulcolax suppository today. OBJECTIVE: Vital Signs: Temperature 98.8 degrees, pulse 89, respiratory rate 20, blood pressure 141/70, oxygen saturation 97 on room air. HEENT: Head normocephalic, no trauma. PERRLA. He is sleepy. Neck: Supple. No JVD. Central trachea. Chest: Decreased breath sounds at the bases with crackles and crepitus, some rhonchi scattered. No wheezing. Cardiovascular: RRR. Abdomen: Soft, nontender, nondistended. No hepatosplenomegaly. Extremities: No edema, no clubbing, no cyanosis. Neurologic: This patient is sleepy. He is not following commands for me. He has cerebral palsy, as per the mother he usually sleeps and stay awake for a little bit but he is not waking up too much. LABORATORY: WBC 6.4, hemoglobin 14.6, hematocrit 43.3, platelets 232,000. Sodium 135, potassium 4.4, chloride 99, chloride 99, bicarbonate 24, BUN 9, creatinine 0.7, glucose 117, calcium 8.5. ASSESSMENT AND PLAN: 1. Sepsis secondary to pneumonia, likely aspiration pneumonia. I will put this patient back on tube feeding, we will use an NG tube again, we will continue with antibiotics. Pulmonary Department consulted. 2. Urinary tract infection. I am not sure if this patient is symptomatic or not. Continue with antibiotics. 3. Sepsis. This patient met criteria for sepsis with the source of infection like pneumonia. Numbers are getting better. WBC normalized. 4. Hypoxemic respiratory failure likely secondary to left lower lobe pneumonia. Continue with same management but his oxygenation is getting better. He is not on oxygen right now. 5. History of urinary retention. Continue home medication. 6. Poor oral intake, we will place an NG tube again and we will start feeding this patient. 7. History of cerebral palsy, Parkinson disease and seizure disorder, continue home medication. 8. Hyperglycemia, likely secondary to feeding tube, hemoglobin A1c is normal at 5.8. 9. Constipation. I will give him a dose of Dulcolax suppository to see how he does. cc: Germain Man MD
[2018-08-26] MEDS: CENTRUM SILVER PO SCH (18:15)
[2018-08-26] MEDS: COLACE PO SCH ×2 (18:16→23:12)
[2018-08-26] MEDS: FLOMAX PO SCH ×2 (18:16→23:12)
[2018-08-26] MEDS: KEPPRA PO SCH ×2 (18:21→23:12)
[2018-08-26] MEDS: METAMUCIL PO SCH (21:21)
[2018-08-26] MEDS: MAXIPIME 1 GM in NS 50 ML IV SCH (21:23)
[2018-08-26] MEDS: RASAGILINE MESYLATE PO SCH (21:25)
[2018-08-26] MEDS: MIRAPEX PO SCH ×2 (21:25→23:11)
[2018-08-26] MEDS: ROCEPHIN 1 GM in NS 50 ML IV SCH (21:25)
[2018-08-26] MEDS: VANCOMYCIN 1,750 MG in NS 250 ML IV SCH (21:39)
[2018-08-27] MEDS: FLAGYL 500 MG/NS 500 MG/100 ML IVPB IV SCH ×3 (00:41→17:54)
[2018-08-27] MEDS: MAXIPIME 1 GM in NS 50 ML IV SCH ×2 (01:52→13:41)
[2018-08-27] MEDS: XOPENEX NEB INH SCH ×6 (03:50→22:25)
[2018-08-27] MEDS: SINEMET 25/100 PO SCH ×4 (06:30→17:58)
--- NOTE | 2018-08-27 08:04 | Diag Imaging Result Doc PS360 ---
EXAM: CHEST-1 VIEW INDICATION: SOB TECHNIQUE: One view COMPARISON: 08/26/2018 FINDINGS: The NG tube is in stable position. There are increased interstitial markings bilaterally. This suggests mild pulmonary edema and/or minimal interstitial fibrosis. This is approximately stable. There is more coarse linear scarring versus atelectasis in the right lower lung zone that is essentially stable. No new consolidation is identified. Cardiac silhouette is stable. IMPRESSION: Essentially stable chest. Electronically signed by Marcel Bailey 08/27/2018 8:02 AM
[2018-08-27] MEDS ORDERED: CLINIMIX E 4.25%-5% SOLUTION 1,000 ML IV SCH (09:00)
[2018-08-27] MEDS ORDERED: DULCOLAX PR ONE (09:18)
--- NOTE | 2018-08-27 09:19 | PROGRESS NOTE ---
DATE: 08/27/2018 SUBJECTIVE: This patient is lying in bed. He has been always moaning. His brother is at the bedside. He pulled out again his NG tube and I will discuss with the family about further treatment, especially in this patient that is having problems swallowing. I am not quite sure if they want to go ahead and continue with the NG tube and/or start thinking about a PEG tube. No big changes compared with yesterday. He seems to be more awake today. I will start this patient on Clinimix for now. OBJECTIVE: HEENT: Head normocephalic. No trauma. Neck: Supple. No JVD. Central trachea. Chest: Decreased breath sounds at the bases with crackles and crepitus and scattered rhonchi. No wheezing. Cardiovascular: Regular rate and rhythm. Abdomen: Soft, nondistended. No hepatosplenomegaly. Extremities: No edema, no clubbing, no cyanosis. Neurological: This patient is sleepy, but arousable. He is not following commands for me. He is mostly moaning coma. He does have cerebral palsy. As per the mother, he usually sleepy and awake on and off. LABORATORY: Glucose 117. ASSESSMENT AND PLAN: 1. Sepsis secondary to pneumonia, likely aspiration pneumonia. Yesterday, we put this patient back on the NG tube and tube feeding. Will continue with antibiotics but this patient pulled out his NG tube. At this point, I will start this patient on Clinimix and I will discuss with the family about our other options including PEG. 2. Urinary tract infection. I am not sure if this patient is symptomatic or not due to his mental status and history of cerebral palsy. Will continue with antibiotics. 3. Sepsis. This patient met criteria for sepsis with a source of infection like pneumonia and urinary tract infection. His WBC normalized and I think he is no longer septic. 4. Hypoxemic respiratory failure secondary to left lower lobe pneumonia. Continue with the same management. 5. History of urinary retention. Continue home medication. 6. Poor oral intake. We placed an NG tube but he pulled it out. I will discuss with the family other options. For now, I will continue with Clinimix. 7. History of cerebral palsy, Parkinson's disease and seizure disorder. Continue home medication. 8. Hyperglycemia likely secondary to feeding tube, hemoglobin A1c is 5.8. 9. Constipation. I am not quite sure if this patient had already some bowel movements. I ordered a suppository yesterday. I will continue with stool softeners as well. cc: Germain Man MD
--- NOTE | 2018-08-27 09:32 | PROGRESS NOTE ---
DATE: 08/27/2018 ADDENDUM: I discussed the case with his mother and the brother at the bedside. As per the mother, usually when he takes his medications, he is able to feed himself. He has been always having problems swallowing. She is not sure if this is getting better or worse. I did a bedside swallow evaluation with the mother and he is able to chew the food, but he is collecting the food at the end of the mouth and he is also choking. We discussed also the possibility of placing a PEG tube in the future if he is not waking up completely and eating properly. So this is the plan for him. We will put again an NG tube. We will start this patient on his tube feeding. We will restart his medications for the Parkinson disease as well. We will re-evaluate this patient in a couple of days. Hopefully, after placing the NG tube and giving him nutrition and his medications, he will be better and we will not need to place a PEG tube. The mother agreed to put some upper extremity restraints since this patient has been pulling the NG tube multiple times. Again, we will start this patient on an NG tube and feeding tube. He will get not only his nutrition but medications. We will re-evaluate this patient. We will see how he does in a couple of days to make a decision. cc: Germain Man MD
[2018-08-27] MEDS: VANCOMYCIN 1,750 MG in NS 250 ML IV SCH ×2 (09:51→23:41)
--- NOTE | 2018-08-27 10:12 | CONSULTATION ---
DATE OF CONSULTATION: 08/27/2018 CHIEF COMPLAINT: Shortness of breath, possible aspiration. HISTORY OF PRESENT ILLNESS: This is a 53-year-old male who resides at [facility] with a history of cerebral palsy, Parkinson's, and seizure disorder. It was suspected that he possibly aspirated. PAST MEDICAL HISTORY: Cerebral palsy, Parkinson's, seizure disorder. PAST SURGICAL HISTORY: Tetralogy of Fallot repair. ALLERGIES: SEDATIVES AND RELAXANTS. CURRENT MEDICATIONS: Please see home reconciliation list. FAMILY HISTORY: Noncontributory. REVIEW OF SYSTEMS: Unable to obtain. PHYSICAL EXAMINATION: General: A 53-year-old male , resting in bed in no acute distress at the present time. Vital Signs: Temperature 97.7, pulse 120, respirations 18, blood pressure 113/72. HEENT: Head is atraumatic, normocephalic. Neck is supple. Mucous membranes are pink and moist. Respiratory: Decreased breath sounds throughout lung tao with scattered rhonchi. Cardiovascular: Regular rate and rhythm. S1 and S2 auscultated. Abdomen: Soft, nondistended. Bowel sounds are active x4. Extremities: Without edema, clubbing, or cyanosis. Neurological: Drowsy, arousable. Does not follow commands. LABORATORY DATA: White blood cells 6.41, red blood cells 4.96, hemoglobin 14.6, hematocrit 43.3. Sodium 135, potassium 4.4, chloride 99, carbon dioxide 24, glucose 117, calcium 8.5. DIAGNOSTIC DATA: Recent chest x-ray revealed increased interstitial markings bilaterally. This suggests mild pulmonary edema and/or minimal interstitial fibrosis. This is approximately stable. There is coarse linear scarring versus atelectasis in the right lower lung zones that is essentially stable. No new consolidation identified. ASSESSMENT: This is a 53-year-old male who resides at [facility] with a history of cerebral palsy, Parkinson's disease, and seizure disorder. Aspiration suspected. PLAN: 1. Suspected aspiration pneumonia. Continue prescribed antibiotics. 2. Sepsis. Urinary tract infection. Continue antibiotic. 3. Continue DVT prophylaxis with Lovenox 40 mg subcutaneous injection daily. Thank you for the courtesy of this consult. Dictated by LISA Carroll for Antionette Champion MD cc: LISA Carroll MD [facility]
[2018-08-27] MEDS: CLINIMIX E 4.25%-5% SOLUTION 1,000 ML IV SCH (10:58)
--- NOTE | 2018-08-27 13:05 | Diag Imaging Result Doc PS360 ---
EXAM: CHEST/ABD TUBE PLACEMENT INDICATION: check ng tube placement TECHNIQUE: One view COMPARISON: 08/27/2018 FINDINGS: The NG tube projects below the diaphragm and is assumed to be in the lumen of the stomach in expected position. The lungs are overexposed due to focus on the NG tube. However, they're approximately stable. IMPRESSION: NG tube identified in the expected position. Electronically signed by Marcel Bailey 08/27/2018 1:03 PM
[2018-08-27] MEDS: FLOMAX PO SCH ×2 (13:38→21:04)
[2018-08-27] MEDS: RASAGILINE MESYLATE PO SCH (13:38)
[2018-08-27] MEDS: CENTRUM SILVER PO SCH (13:38)
[2018-08-27] MEDS: MIRAPEX PO SCH ×2 (13:39→21:05)
[2018-08-27] MEDS: METAMUCIL PO SCH (13:39)
[2018-08-27] MEDS: LOVENOX SUBQ SCH (13:40)
[2018-08-27] MEDS: COLACE PO SCH ×2 (13:40→21:04)
[2018-08-27] MEDS: KEPPRA PO SCH ×2 (13:40→21:04)
[2018-08-27] MEDS: AYR NASAL SPRAY NAS SCH ×2 (18:32→21:09)
[2018-08-28] MEDS: MAXIPIME 1 GM in NS 50 ML IV SCH ×2 (01:24→14:09)
[2018-08-28] MEDS: CLINIMIX E 4.25%-5% SOLUTION 1,000 ML IV SCH ×3 (01:40→17:31)
[2018-08-28] MEDS: FLAGYL 500 MG/NS 500 MG/100 ML IVPB IV SCH ×3 (01:56→17:31)
[2018-08-28] MEDS: XOPENEX NEB INH SCH ×6 (03:55→22:00)
[2018-08-28] MEDS: SINEMET 25/100 PO SCH ×4 (06:38→17:31)
[2018-08-28 07:21] LABS: BASO# 0.04 X1000 (0.0-0.2); BASO% 0.5 % (0.0-0.8); EOS# 0.55 X1000 (0.0-0.7); EOS% 6.9 % (0.0-10.0); HEMATOCRIT 45.5 % (42.0-52.0); HEMOGLOBIN 15.3 g/dL (14.0-18.0); IMM GRAN% 0.8 % (0.0-0.5); LYMPH# 1.55 X1000 (1.2-3.4); LYMPH% 19.6 % (20.5-51.1); MCHC 33.6 g/dL (33-37); MCV 86.3 FL (81-99); MONO# 1.05 X1000 (0.11-0.59); MONO% 13.3 % (1.7-9.3); MPV 9.7 FL (7.4-10.4); NEUT# 4.67 X1000 (1.4-6.5); NEUT% 58.9 % (42.2-75.2); PLT 249 X1000 (130-400); RBC 5.27 XMIL (4.7-6.1); RDW 13.9 % (11.5-14.5); WBC 7.92 X1000 (4.8-10.8)
[2018-08-28 07:22] LABS: IMM GRAN# 0.06 X1000 (0.0-0.04)
--- NOTE | 2018-08-28 07:37 | Diag Imaging Result Doc PS360 ---
EXAM: CHEST-PORTABLE INDICATION: dyspnea TECHNIQUE: One view COMPARISON: 08/27/2018 FINDINGS: The NG tube is in stable position. Bilateral increased interstitial markings are unchanged. No new consolidation is identified. Cardiac silhouette is stable. IMPRESSION: Stable chest. Electronically signed by Marcel Bailey 08/28/2018 7:34 AM
[2018-08-28 07:46] LABS: AGAP 12; BUN 11 mg/dL (8-22); CALCIUM 9.2 mg/dL (8.8-10.2); CHLORIDE 100 mmol/L (98-107); COSMO 275; CREATININE 0.6 mg/dL (0.7-1.2); ESTIMATED GFR > 60; GLUCOSE 162 mg/dL (70-104); POTASSIUM 4.1 mmol/L (3.5-5.1); SODIUM 136 mmol/L (136-145); TCO2 24 mmol/L (25-35)
[2018-08-28] MEDS: KEPPRA PO SCH ×2 (09:45→22:11)
[2018-08-28] MEDS: MIRAPEX PO SCH ×2 (09:45→22:11)
[2018-08-28] MEDS: CENTRUM SILVER PO SCH (09:46)
[2018-08-28] MEDS: RASAGILINE MESYLATE PO SCH (09:46)
[2018-08-28] MEDS: COLACE PO SCH ×2 (09:46→22:11)
[2018-08-28] MEDS: METAMUCIL PO SCH (09:47)
[2018-08-28] MEDS: LOVENOX SUBQ SCH (09:48)
[2018-08-28] MEDS: FLOMAX PO SCH ×2 (10:10→22:11)
[2018-08-28] MEDS: AYR NASAL SPRAY NAS SCH ×2 (10:12→22:10)
[2018-08-28] MEDS: VANCOMYCIN 1,750 MG in NS 250 ML IV SCH ×2 (10:57→22:10)
--- NOTE | 2018-08-28 15:21 | PROGRESS NOTE ---
DATE: 08/28/2018 SUBJECTIVE: The patient is lying in bed. According to nursing staff, he was fine but pulling out the IV access. That is why we placed 1 home restraint just to avoid that. At this time, he is on more calmed down. No other issues noted as per nursing staff overnight. OBJECTIVE: Vital Signs: Temperature 98.3, heart rate 75, respiratory rate 20, blood pressure 113/86, O2 saturation 98% on room air. General: This is a chronically ill appearing, 53-year- old male, lying in bed, in no acute distress. Cardiovascular: S1, S2 heard. No murmurs, gallops, or rubs. Regular rate and rhythm. Respiratory: Decreased breath sounds globally with some crackles and rhonchi noted in both pulmonary bases. The patient does not have any wheezing, not using any accessory muscles or having work of breathing. Abdomen: Soft, nondistended, and non tender to palpation. Bowel sounds present. No organomegaly. Extremities: No clubbing, cyanosis, or edema. Peripheral pulses present in both legs. Neurological: The patient is sleepy but arousable. Does not follow commands. He has history of cerebral palsy. ASSESSMENT/PLAN: 1. Sepsis secondary to pneumonia, likely aspiration pneumonia. The patient continues to remove NG tube. At this time, I have talked with mother about PEG tube placement as multiple measures to avoid aspiration of this patient. Mother says it is okay to talk with GI consult to see if that is the best thing for her son. We have put a consult in. 2. Urinary tract infection. Very difficult to know if this patient has symptoms because he has cerebral palsy. The urine culture show Staphylococcus epidermidis which is a contaminant. At this point, we will continue with cefepime and metronidazole for pneumonia. 3. Acute hypoxemic respiratory failure secondary to left lower lobe pneumonia. Most likely aspiration, we will continue with current treatment. 4. Poor oral intake. The patient is on NG tube and we are planning to do a PEG tube placement if family is okay with that. In the meantime, we will continue with Clinimix. 5. History of cerebral palsy and Parkinson's disease and seizure disorder. We will continue home medications. 6. Disposition. We are going to consult GI to see if the family is okay to place a PEG tube. We will go from there. cc: Arnulfo Ernandez MD
[2018-08-29] MEDS: MAXIPIME 1 GM in NS 50 ML IV SCH ×2 (01:19→13:10)
[2018-08-29] MEDS: FLAGYL 500 MG/NS 500 MG/100 ML IVPB IV SCH ×3 (01:19→17:30)
[2018-08-29] MEDS: CLINIMIX E 4.25%-5% SOLUTION 1,000 ML IV SCH ×2 (01:57→17:37)
[2018-08-29] MEDS: XOPENEX NEB INH SCH ×6 (02:25→22:05)
[2018-08-29] MEDS: SINEMET 25/100 PO SCH ×4 (06:34→17:30)
[2018-08-29 08:27] LABS: AGAP 11; ALBUMIN 3.5 g/dL (3.5-5.0); BUN 12 mg/dL (8-22); CALCIUM 9.3 mg/dL (8.8-10.2); CHLORIDE 96 mmol/L (98-107); COSMO 276; CREATININE 0.6 mg/dL (0.7-1.2); ESTIMATED GFR > 60; GLUCOSE 150 mg/dL (70-104); MAGNESIUM 2.2 mg/dL (1.5-2.7); PHOSPHORUS 4.4 mg/dL (2.7-4.5); POTASSIUM 4.5 mmol/L (3.5-5.1); SODIUM 137 mmol/L (136-145); TCO2 30 mmol/L (25-35)
[2018-08-29] MEDS: MIRAPEX PO SCH ×2 (09:35→21:57)
[2018-08-29] MEDS: METAMUCIL PO SCH (09:35)
[2018-08-29] MEDS: RASAGILINE MESYLATE PO SCH (09:36)
[2018-08-29] MEDS: KEPPRA PO SCH ×2 (09:36→22:16)
[2018-08-29] MEDS: CENTRUM SILVER PO SCH (09:37)
[2018-08-29] MEDS: FLOMAX PO SCH ×2 (09:37→21:58)
[2018-08-29] MEDS: VANCOMYCIN 1,750 MG in NS 250 ML IV SCH ×2 (09:37→22:55)
[2018-08-29] MEDS: LOVENOX SUBQ SCH (09:37)
[2018-08-29] MEDS: AYR NASAL SPRAY NAS SCH ×2 (09:38→21:58)
[2018-08-29] MEDS: COLACE PO SCH ×2 (09:38→21:57)
--- NOTE | 2018-08-29 15:56 | PROGRESS NOTE ---
DATE: 08/29/2018 SUBJECTIVE: Patient is lying in bed non verbal to me. Mother is at bedside. He reports that he is doing fine. OBJECTIVE: Vital Signs: Temperature 97.8 degrees, heart rate 179, respiratory rate 18, blood pressure 134/64, O2 saturation 100% on room air. General: This is a chronically ill-appearing 53- year-old male with history of cerebral palsy lying in bed in no acute distress. Cardiovascular: S1, S2 heard. No murmurs, gallops, or rubs. Regular rate and rhythm. Respiratory: Decreased breath sounds globally with some crackles noted in both pulmonary bases. Patient not using any accessory muscles or having work of breathing. Abdomen: Soft, nondistended, nontender to palpation. Bowel sounds present. No organomegaly. Extremities: Clubbing, cyanosis or edema. Peripheral pulses present in both legs. Neuro: Patient does follow simple commands. History of cerebral palsy noted . ASSESSMENT AND PLAN: 1. Acute respiratory failure secondary to pneumonia like aspiration. Because of recurrent aspiration nasogastric tube has been placed. He is doing fine since then. For long- term management of this problem I have suggested percutaneous endoscopic gastrostomy tube so we have consulted Dr. Boyd from GI to see if a PEG tube can be placed. Mom said she is going to think about it. 2. Urinary tract infection. Patient is some cefepime and metronidazole very difficult to get information from the patient regarding pain or symptoms of this possible infection, in any case will continue with antibiotics. 3. Acute hypoxemic respiratory failure secondary to left lower lobe pneumonia. Will continue with metronidazole and cefepime. 4. Poor oral intake. That another reason why we like to do a percutaneous endoscopic gastrostomy tube. As we mentioned before GI has been consulted will talk with this patient and will go from there. 5. History cerebral palsy and Parkinson disease aware, will continue home medications. 6. Disposition. Awaiting consult from GI to see this patient is a candidate for PEG tube placement. Also Palliative Care consulted for goals of care. cc: Arnulfo Ernandez MD MTDD
[2018-08-30] MEDS: MAXIPIME 1 GM in NS 50 ML IV SCH ×2 (02:00→14:42)
[2018-08-30] MEDS: FLAGYL 500 MG/NS 500 MG/100 ML IVPB IV SCH ×3 (02:44→18:26)
[2018-08-30] MEDS: XOPENEX NEB INH SCH ×6 (03:29→23:55)
[2018-08-30] MEDS: SINEMET 25/100 PO SCH ×4 (06:13→18:26)
[2018-08-30] MEDS: METAMUCIL PO SCH (09:30)
[2018-08-30] MEDS: KEPPRA PO SCH ×2 (09:30→22:46)
[2018-08-30] MEDS: LOVENOX SUBQ SCH (09:30)
[2018-08-30] MEDS: COLACE PO SCH ×2 (09:30→22:46)
[2018-08-30] MEDS: CENTRUM SILVER PO SCH (09:30)
[2018-08-30] MEDS: AYR NASAL SPRAY NAS SCH ×2 (09:31→21:31)
[2018-08-30] MEDS: MIRAPEX PO SCH ×2 (09:31→22:46)
[2018-08-30] MEDS: CLINIMIX E 4.25%-5% SOLUTION 1,000 ML IV SCH ×2 (09:31→18:26)
[2018-08-30] MEDS: FLOMAX PO SCH ×2 (09:31→22:46)
[2018-08-30] MEDS: RASAGILINE MESYLATE PO SCH (09:32)
[2018-08-30] MEDS: VANCOMYCIN 1,750 MG in NS 250 ML IV SCH (11:53)
[2018-08-30 12:21] LABS: AGAP 10; ALBUMIN 3.4 g/dL (3.5-5.0); BUN 18 mg/dL (8-22); CALCIUM 8.6 mg/dL (8.8-10.2); CHLORIDE 96 mmol/L (98-107); COSMO 272; CREATININE 0.6 mg/dL (0.7-1.2); ESTIMATED GFR > 60; GLUCOSE 170 mg/dL (70-104); PHOSPHORUS 4.1 mg/dL (2.7-4.5); SODIUM 133 mmol/L (136-145); TCO2 27 mmol/L (25-35)
--- NOTE | 2018-08-30 14:56 | PROGRESS NOTE ---
DATE: 08/30/2018 SUBJECTIVE: Patient is lying in bed nonverbal. I talked with the mother today. She said that she talked with nurse practitioner for GI doctor, but she is waiting for Dr. Boyd to talk to her about final decision about placing a PEG tube. OBJECTIVE: Vital Signs: Temperature 97.4 degrees, heart rate 92, respiratory rate 18, blood pressure 117/50, and O2 saturation 93% on room air. General: This is a chronically ill- appearing, 52-year-old male with history of cerebral palsy lying in bed in no acute distress. Cardiovascular: S1, S2 heard. No murmurs, gallops, or rubs. Regular rate and rhythm. Lying in bed in no acute distress. HEENT: Head is normocephalic, atraumatic with NG tube placed. Cardiovascular: S1, S2 heard. No murmurs, gallops, or rubs. Regular rate and rhythm. Respiratory: Decreased breath sounds globally with some crackles noted in both pulmonary bases. Patient is not using any accessory muscles or having work of breathing. Abdomen: Soft, a little bit distended but nontender to palpation. Bowel sounds present. No organomegaly. Extremities: No clubbing, cyanosis, or edema noted. Peripheral pulses present in both legs on rectal exam. There are some contractions in both hands. Neurological: Patient does follow simple commands. Moves all 4 extremities spontaneously. ASSESSMENT AND PLAN: 1. Acute respiratory failure secondary to aspiration pneumonia. Because of recurrent aspiration, NG tube has been placed. Unfortunately, this patient keeps pulling out the NG tube. Fortunately, he did not do that for the last 24 hours. I think this patient may be a candidate for PEG tube placement so we have consulted Dr. Boyd from GI. Evaluation is still pending at time of my dictation. Mom is not completely happy putting in that PEG tube, but she thinks that he may need it so he had some questions regarding the procedure. She is awaiting for Dr. Boyd to make a decision about it. 2. For aspiration pneumonia, patient is on Zyvox, cefepime and metronidazole. We will continue with the same management. 3. Urinary tract infection. We will continue with cefepime. It is very difficult to obtain information about this problem because patient is not able to tell me about her symptoms. 4. Poor oral intake. That is the reason why we are trying to get a PEG tube placed. GI consult is still pending. We will follow recommendations. 5. History of cerebral palsy and Parkinson disease. Aware. We will continue home medications. 6. Disposition. At this point, I have talked with mom about the plan of care. In case she decides to go and place this NG tube, we will try to do it most likely either at the end of or Tuesday. If not, I think this patient can be discharged to oral antibiotics and we can send this patient to [facility] where he lives tomorrow. cc: Arnulfo Ernandez MD MTDD
--- NOTE | 2018-08-30 17:56 | GASTROENTEROLOGY CONSULTATION ---
DATE: 08/30/2018 REASON FOR CONSULTATION: Possible PEG tube placement. HISTORY OF PRESENT ILLNESS: This is a 53-year-old male who has a history of cerebral palsy, seizure disorder, and Parkinson's. He resides at [facility]. His mother is with him today. Patient had been living with her up until 2 years ago when he began to reside at [facility]. Recently the patient has had some respiratory distress with suspected aspiration and was brought in for further evaluation. Patient's mother states he has been having problems choking when he eats at times. She reports that he has very thick secretions and sputum. She states when he is well he loves to eat and they go out to eat on occasion where she has noted episodes of choking and coughing when eating. Since admission patient has had NG tube placement with feedings infusing by nasogastric tube. He is currently tolerating those well. Request was made to discuss possible PEG tube placement for permanent feeding option. PAST MEDICAL HISTORY: Cerebral palsy, Parkinson disease, seizure disorder. PAST SURGICAL HISTORY: Tetralogy of Fallot repair. ALLERGIES: Sedative and relaxants cause opposite effect, causing agitation. HOME MEDICATIONS: Tylenol 650 mg every 6 hours as needed, carbidopa/levodopa 25/100 mg every night, Carbidopa/levodopa 50/200 mg every morning, carbidopa/levodopa 25/100 half a tablet at 0500, Colace 100 mg twice a day, glucosamine 1 tablet daily, Keppra 500 mg twice a day, multivitamin daily, omeprazole 1 tablet daily, MiraLAX 17 g every night as needed, Mirapex 1.5 mg every night, Mirapex 1 mg every day, Metamucil daily, rasagiline mesylate 0.5 daily, scopolamine patch every 3 days, nasal gel spray twice a day, tamsulosin 0.4 mg twice a day. SOCIAL HISTORY: Currently resides at [facility] for the last 2 years. No alcohol or tobacco use. REVIEW OF SYSTEMS: Per history of present illness. At the time of my evaluation, patient is nonverbal. Information is obtained from the mother. PHYSICAL EXAMINATION: Vital Signs: Temperature 97.4 degrees, pulse 92, respirations 18, blood pressure 117/58. General: Patient is with eyes open but is nonverbal. HEENT: Normocephalic, atraumatic. Pupils equal, round, reactive to light. Cardiovascular: Regular rate and rhythm. Respiratory: With some crackles noted. Abdomen: Soft. Positive bowel sounds. No abdominal scars noted. Extremities: No lower extremity edema noted. DIAGNOSTIC RESULTS: Laboratory: Hematology: WBC 7.9, hemoglobin 15.3, hematocrit 45.5, MCV 86.3, platelets 249,000. Chemistry: Sodium 133, potassium 4.0, chloride 96, CO2 27, BUN 18, creatinine 0.6, glucose 170, calcium 8.6, phosphorus 4.1, magnesium 2.0. Imaging studies: Chest x-ray on 08/28 showed stable chest with NG tube in stable position. Chest x-ray on admission 08/22/2018 showed increased interstitial markings versus pulmonary edema and old rib fractures. ASSESSMENT: 1. Acute respiratory failure, pneumonia most likely related aspiration. Patient currently has an NG tube with feeding, tolerating well. Recommend to keep head of bed elevated. 2. Coughing and choking with poor oral intake. 3. Urinary tract infection, on antibiotics. 4. Cerebral palsy, Parkinson disease, and history of seizures, patient residing at [facility]. PLAN: Continue supportive care. I have discussed with the mother the option of PEG tube placement. She wants to think about it before giving consent. I have discussed the procedure along with benefits and risks with the mother. Further plans will be made according to her decision. I have discussed this case with Dr. Boyd. Thank you for this consultation. Dictated by LISA Bronson for Edward Boyd MD cc: LISA Almeida MD
[2018-08-31] MEDS: VANCOMYCIN 1,750 MG in NS 250 ML IV SCH (00:17)
[2018-08-31] MEDS: MAXIPIME 1 GM in NS 50 ML IV SCH ×2 (00:55→12:36)
[2018-08-31] MEDS: DULCOLAX PR PRN ×2 (01:36→22:33)
[2018-08-31] MEDS: TYLENOL PR PRN (01:36)
[2018-08-31] MEDS: FLAGYL 500 MG/NS 500 MG/100 ML IVPB IV SCH ×3 (02:00→18:11)
[2018-08-31] MEDS: SINEMET 25/100 PO SCH ×4 (05:34→15:55)
[2018-08-31] MEDS: CLINIMIX E 4.25%-5% SOLUTION 1,000 ML IV SCH ×2 (05:52→09:13)
[2018-08-31] MEDS: XOPENEX NEB INH SCH ×6 (05:58→23:25)
--- NOTE | 2018-08-31 07:01 | Diag Imaging Result Doc PS360 ---
EXAM: CHEST-1 VIEW 08/31/2018 HISTORY: SOB TECHNIQUE: AP portable at 0606 COMMENT: There is diffuse interstitial opacity with some denser opacification in the right lower lobe. Considering differences in inspiration this has not changed appreciably since 08/28/2018. IMPRESSION: Pulmonary edema plus minus pneumonia. Electronically signed by Lionel Aguilar 08/31/2018 6:59 AM
[2018-08-31] MEDS: COLACE PO SCH ×2 (08:03→22:29)
[2018-08-31] MEDS: CENTRUM SILVER PO SCH (08:03)
[2018-08-31] MEDS: FLOMAX PO SCH ×2 (08:04→22:28)
[2018-08-31] MEDS: RASAGILINE MESYLATE PO SCH (08:04)
[2018-08-31] MEDS: MIRAPEX PO SCH ×2 (08:05→22:28)
[2018-08-31] MEDS: METAMUCIL PO SCH (08:06)
[2018-08-31] MEDS: KEPPRA PO SCH ×2 (08:07→22:28)
[2018-08-31] MEDS: LOVENOX SUBQ SCH (08:07)
[2018-08-31] MEDS: AYR NASAL SPRAY NAS SCH ×2 (08:08→22:40)
[2018-08-31 10:36] LABS: AGAP 9; CHLORIDE 98 mmol/L (98-107); POTASSIUM 4.2 mmol/L (3.5-5.1); SODIUM 134 mmol/L (136-145); TCO2 27 mmol/L (25-35)
[2018-08-31 10:37] LABS: BUN 18 mg/dL (8-22); CALCIUM 8.9 mg/dL (8.8-10.2); COSMO 272; CREATININE 0.6 mg/dL (0.7-1.2); ESTIMATED GFR > 60; GLUCOSE 137 mg/dL (70-104); MAGNESIUM 2.1 mg/dL (1.5-2.7); PHOSPHORUS 4.5 mg/dL (2.7-4.5)
--- NOTE | 2018-08-31 17:26 | PROGRESS NOTE ---
DATE: 08/31/2018 INTERVAL HISTORY: No acute events overnight. The patient has been receiving NG tube feed and I have held his Clinimix because of that. SUBJECTIVE: The patient keeps his eyes open does not appear in any acute distress. He answers good afternoon to me. The patient's family is at bedside. PHYSICAL EXAMINATION: Vitals: Currently, temperature is 98.6 degrees, pulse 91, respiratory rate 16, blood pressure 110/59, saturating 92% on room air. General: On physical examination, does not appear in any acute distress. HEENT: Oral cavity is moist. He does have some white coating of his tongue. Cardiovascular: S1, S2 normal. Appears tachycardic with heart rate in 90s. Lungs: Air entry decreased in right infrascapular region. No wheeze, rhonchi. Occasional crackles. Abdomen: Soft, nontender. Extremities: No lower extremity edema. : He has urine catheter in place. Neurologic: He also is on bilateral restraints. LABS: No CBC today. His BMP suggestive of acceptable range of electrolytes. ASSESSMENT AND PLAN: 1. Right lower lobe aspiration pneumonia. Continue to keep patient on nothing by mouth. Continue intravenous cefepime and intravenous vancomycin. He has been on intravenous antibiotics for almost 10 days, and my plan is to stop the antibiotics in 24 hours to 48 hours. 2. Staphylococcus epidermidis urinary tract infection. My plan is to stop antibiotics in the next 24 to 48 hours. 3. Poor oral intake due to dysphagia in the setting of his cerebral palsy and probably Parkinson disease. Continue nasogastric tube feeding. Gastroenterology has been consulted and the patient's family now agrees with percutaneous endoscopic gastrostomy tube. I will appreciate Gastroenterology recommendation about scheduling. As far as his pneumonia is concerned, he should complete his antibiotics in the next 24 to 48 hours, and he is breathing well on room air and he does not have any leukocytosis, though he does have some residual atelectasis on chest x-ray. 4. History of cerebral palsy and seizure with Parkinson disease. Continue home pramipexole, carbidopa/levodopa, levetiracetam, and rasagiline. 5. History of urine retention. Continue home tamsulosin. Once patient is more awake and alert, my plan is to remove the North catheter. 6. Disposition: Patient remains inside the hospital as we await percutaneous endoscopic gastrostomy tube placement. Plan of care discussed with the patient's mother. All of her questions have been answered. cc: Trent Benjamin MD
--- NOTE | 2018-08-31 21:20 | GASTROENTEROLOGY PROGRESS NOTE ---
DATE: 08/31/2018 SUBJECTIVE: The patient was lying in bed in no acute distress. He is nonverbal. His brother was at the bedside today. The patient was getting a breathing treatment at the time of my evaluation. Dr. Boyd has spoken with patient's mother yesterday about PEG tube placement. The mother was still deciding whether she wanted to proceed with the procedure. She was upset about having to do that. The son states today that they are prepared to give permission for the feeding tube, if needed. OBJECTIVE: Vital Signs: Temperature 98.5, pulse 91, respirations 16, blood pressure 117/59. General: The patient is awake but nonverbal. He is receiving a breathing treatment. Abdomen: Soft. Nontender. Positive bowel sounds. No abdominal scars noted. LABORATORY: Hematology: WBC 7.92, hemoglobin 15.3, hematocrit 45.5, MCV 86.3, platelet 249,000. Chemistry: Sodium 134, potassium 4.2, chloride 98, CO2 27, BUN 18, creatinine 0.6 glucose 137. ASSESSMENT AND PLAN: 1. Acute respiratory failure related to aspiration pneumonia, currently on antibiotics. 2. Coughing and choking with poor oral intake. The patient currently has a nasogastric tube with feedings infusing without difficulty. 3. Urinary tract infection, on antibiotics. 4. Cerebral palsy, Parkinson's disease, history of seizures. The patient has been residing at [facility] prior to admission to the hospital. Continue supportive care. Continue current NG tube feedings. We have discussed with the family about more permanent feeding option, PEG tube placement. The mother has been reluctant about giving permission. I have spoken with the son today, who states that they have decided to give permission. After discussing with Dr. Boyd, he prefers to let his infections and pneumonia improve before proceeding the PEG tube placement. Continue current NG feedings for now and we will reevaluate next week on when to place the PEG tube if family gives consent. The patient was also seen by Dr. Boyd yesterday and spoke with the mother. Dictated by LISA Bronson for Edward Boyd MD cc: LISA Almeida MD
[2018-08-31] MEDS ORDERED: VANCOMYCIN 1,750 MG in NS 250 ML IV SCH (22:00)
[2018-09-01] MEDS: XOPENEX NEB INH SCH ×6 (03:07→22:45)
[2018-09-01] MEDS: SINEMET 25/100 PO SCH ×4 (06:38→16:47)
[2018-09-01 07:13] LABS: BASO# 0.04 X1000 (0.0-0.2); BASO% 0.6 % (0.0-0.8); EOS# 0.38 X1000 (0.0-0.7); EOS% 5.8 % (0.0-10.0); HEMATOCRIT 43.2 % (42.0-52.0); HEMOGLOBIN 14.6 g/dL (14.0-18.0); IMM GRAN# 0.02 X1000 (0.0-0.04); IMM GRAN% 0.3 % (0.0-0.5); LYMPH# 2.04 X1000 (1.2-3.4); MCH 29.4 PG (27-31); MCHC 33.8 g/dL (33-37); MCV 86.9 FL (81-99); MONO# 0.82 X1000 (0.11-0.59); MONO% 12.5 % (1.7-9.3); MPV 9.6 FL (7.4-10.4); NEUT# 3.28 X1000 (1.4-6.5); NEUT% 49.8 % (42.2-75.2); PLT 286 X1000 (130-400); RBC 4.97 XMIL (4.7-6.1); RDW 14.4 % (11.5-14.5); WBC 6.58 X1000 (4.8-10.8)
[2018-09-01] MEDS: AYR NASAL SPRAY NAS SCH (09:00)
[2018-09-01] MEDS ORDERED: DIPRIVAN 1% ONE (10:38)
[2018-09-01] MEDS ORDERED: XYLOCAINE-MPF 2% ONE (10:38)
[2018-09-01] MEDS ORDERED: KEFZOL 1 GM/D5W 1 GM/50 ML IVPB ONE (10:47)
--- NOTE | 2018-09-01 12:41 | PROGRESS NOTE ---
DATE: 09/01/2018 INTERVAL HISTORY: Physical Therapy could not evaluate the patient since the patient was in restraints. The patient did not have any acute overnight events. I had discussion with the shop steward and the plan is for patient to get a PEG tube sometime today. The patient is sleepy and he has been sleepy. He perks up intermittently and then answers questions, again dose goes to sleep. VITAL SIGNS: Suggest a temperature of 98.9 degrees, pulse is 60, respiratory rate 16, blood pressure 110/73. He is saturating 99% on room air. PHYSICAL EXAMINATION: General: He occasionally mumbles and he states he is doing good. HEENT: Oral cavity is moist. Pupils bilaterally equal reacting to light. However, he resists eye opening. Lungs: Air entry bilaterally equal. No wheeze or rhonchi. He had decreased right infrascapular region air entry and occasional crackles. Cardiovascular: S1, S2 normal. Not tachycardic. He has a diastolic murmur affecting the left lower sternal border. Abdomen: Soft, nontender. No lower extremity edema. Genitourinary: He has a urine catheter. Neurologic: He has bilateral restraints. He is drowsy but answers simple questions, keeping his eyes closed, but appears sleepy. LABORATORY DATA: Suggestive of no leukocytosis. His hemoglobin is normal. Normal platelet count. No electrolytes today. IMAGING: Chest x-ray yesterday had suggested pulmonary edema plus or minus pneumonia. ASSESSMENT AND PLAN: 1. Right lower lobe aspiration pneumonia status post intravenous cefepime and vancomycin for a total of 10 days of antibiotics which I discontinued on August 31. He is breathing well on room air and he does not have leukocytosis. He does have occasional cough because of his chronic aspiration and will continue n.p.o. 2. Staphylococcus epidermidis urinary tract infection, status post antibiotics. 3. Poor oral intake due to chronic dysphagia in the setting of cerebral palsy and Parkinson's disease. The patient to undergo PEG tube placement today by Gastroenterology. Appreciate post procedure recommendation. Dietitian on board for recommendation regarding tube feeds. 4. History of cerebral palsy, seizure and Parkinson disease. Continue home pramipexole, carbidopa/levodopa, levetiracetam a nd Rasagiline. 5. History of urine retention. Continue home tamsulosin at the moment and North catheter. My plan is to take it out when he is more awake and alert. 6. Disposition. Unfortunately, patient is on restraints. After the PEG tube placement once patient is more awake and alert, my plan is to take the restraints off. He would need to be off restraints for 48 hours as I was told today before discharging. Plan of care was discussed with the patient and his mother. Accordingly, I will plan discharge in the next 48 hours. cc: Trent Benjamin MD
[2018-09-01] MEDS: CENTRUM SILVER PO SCH (14:43)
[2018-09-01] MEDS: RASAGILINE MESYLATE PO SCH (14:44)
[2018-09-01] MEDS: MIRAPEX PO SCH (14:44)
[2018-09-01] MEDS: KEPPRA PO SCH (14:45)
[2018-09-01] MEDS: METAMUCIL PO SCH (14:45)
[2018-09-01] MEDS: FLOMAX PO SCH (14:46)
[2018-09-01] MEDS: COLACE PO SCH (14:47)
[2018-09-02] MEDS: XOPENEX NEB INH SCH ×6 (03:05→23:00)
[2018-09-02] MEDS: AYR NASAL SPRAY NAS SCH ×3 (05:52→21:00)
[2018-09-02] MEDS: FLOMAX PO SCH ×3 (05:52→21:57)
[2018-09-02] MEDS: COLACE PO SCH ×2 (05:52→10:21)
[2018-09-02] MEDS: KEPPRA PO SCH ×2 (05:52→10:21)
[2018-09-02] MEDS: MIRAPEX PO SCH ×3 (05:53→21:56)
[2018-09-02] MEDS: SINEMET 25/100 PO SCH ×4 (05:53→17:01)
[2018-09-02 08:18] LABS: AGAP 12; ALBUMIN 3.4 g/dL (3.5-5.0); BUN 16 mg/dL (8-22); CALCIUM 8.6 mg/dL (8.8-10.2); CHLORIDE 98 mmol/L (98-107); COSMO 270; CREATININE 0.6 mg/dL (0.7-1.2); ESTIMATED GFR > 60; GLUCOSE 117 mg/dL (70-104); MAGNESIUM 2.1 mg/dL (1.5-2.7); PHOSPHORUS 3.1 mg/dL (2.7-4.5); POTASSIUM 4.1 mmol/L (3.5-5.1); SODIUM 134 mmol/L (136-145); TCO2 24 mmol/L (25-35)
[2018-09-02] MEDS: RASAGILINE MESYLATE PO SCH (10:19)
[2018-09-02] MEDS: METAMUCIL PO SCH (10:20)
[2018-09-02] MEDS: LOVENOX SUBQ SCH (10:21)
[2018-09-02] MEDS: CENTRUM SILVER PO SCH (10:21)
--- NOTE | 2018-09-02 11:28 | GASTROENTEROLOGY PROGRESS NOTE ---
DATE: 09/02/2018 SUBJECTIVE: The patient was resting, but aroused easily. He was in no acute distress. His brother was at the bedside. Tube feedings were started this morning. So far, there have been no problems. OBJECTIVE: Vital Signs: Temperature 99.0 degrees, pulse 90, respirations 18, blood pressure 122/68. General: The patient was resting, in no acute distress. Abdomen: PEG tube site was cleaned. Bumper loosened. Abdominal binder in place. LABORATORY: Hematology: WBC 6.58, hemoglobin 14.6, hematocrit 43.2, MCV 86.9. Chemistry: Sodium 134, potassium 4.1, chloride 98, CO2 24, BUN 16, creatinine 0.6, glucose 117. ASSESSMENT AND PLAN: 1. Pneumonia. Received antibiotics. 2. Poor oral intake, dysphagia. Percutaneous endoscopic gastrostomy tube was placed yesterday. Currently, tolerating tube feedings. Bumper was loosened and site cleaned. Abdominal binder in place. Continue current management. Will continue to follow. Further plans will be made as needed. I have discussed this case with Dr. Boyd. Dictated by LISA Bronson for Edward Boyd MD cc: LISA Almeida MD
[2018-09-02] MEDS: KEFLEX LIQUID PO SCH ×3 (13:22→21:54)
--- NOTE | 2018-09-02 13:44 | PROGRESS NOTE ---
DATE: 09/02/2018 INTERVAL HISTORY: Mr. Reynaga got his PEG tube placement yesterday, and he has been started on tube feeds, which he has been tolerating well. He has been off restraints. He could not be discharged for 48 hours until after restraints. The patient's mother is at bedside. I discussed with his mother about his lethargy, and we discussed about his Parkinson disease as well. VITAL SIGNS: Currently his vitals suggest temperature of 98.1 degrees pulse 102, respiratory rate 18, blood pressure 117/72, saturating 95% on room air. PHYSICAL EXAMINATION: General: On physical examination, he is sleepy. He yes or no to strong verbal stimuli. Oral cavity has pool of saliva. Respiratory: Air entry bilaterally equal. No wheeze, rhonchi, crackles. Cardiovascular: S1, S2 normal. No murmur, rub, or gallop, except diastolic murmur affecting left lower sternal border. Abdomen: Has PEG tube in place with abdominal binder. He has urine catheter. He does not have any restraints. He is drowsy, but arousable. He is not following simple commands today. When he tries to move, he appears bradykinetic and has resting tremors. LABS: No CBC today. BMP shows an acceptable range of electrolytes mostly. ASSESSMENT AND PLAN: 1. Right lower lobe aspiration pneumonia status post intravenous cefepime and vancomycin for a total of 10 days of antibiotics, which he completed on August 31. 2. Staphylococci epidermidis urinary tract infection status post antibiotics. He does have North catheter, and at home he was receiving intermittent catheterization when he would have urine retention. Considering his lethargy, mother requests to keep urine catheter because he wanted to be able to come out of bed to [facility]. 3. Poor oral intake due to chronic dysphagia in the setting of cerebral palsy and Parkinson disease, status post percutaneous endoscopic gastrostomy tube placement on 09/01/2018. Dietitian on board for tube feeds recommendation. 4. History of cerebral palsy, seizure disorder and Parkinson disease. Continue home pramipexole, carbidopa/levodopa, rasagiline. Though he did not receive his Parkinson medication yesterday because of his planned procedure, today he has received his medication. However, despite that, he appears more lethargic. I will consult Neurology on Tuesday to see if we need to make further adjustment in medication frequency. 5. History of urine retention. Continue home tamsulosin and North catheter. The plan is to take it out once he is more awake and alert. 6. Disposition: Unfortunately patient could not be transferred out because of his bilateral restraints after the fact he already received percutaneous endoscopic gastrostomy tube and my plan is to discharge him on Tuesday. Plan of care discussed with mother. All of her questions have been answered. cc: Trent Benjamin MD
[2018-09-02] MEDS: KEPPRA LIQUID PEG SCH (21:55)
[2018-09-02] MEDS: COLACE LIQUID PEG SCH (21:58)
[2018-09-03] MEDS: MIRALAX PEG SCH ×2 (01:00→09:17)
[2018-09-03] MEDS: XOPENEX NEB INH SCH ×6 (03:15→23:15)
[2018-09-03] MEDS: SINEMET 25/100 PO SCH ×4 (06:27→18:43)
[2018-09-03 07:39] LABS: AGAP 10; BUN 14 mg/dL (8-22); CALCIUM 8.8 mg/dL (8.8-10.2); CHLORIDE 96 mmol/L (98-107); COSMO 273; CREATININE 0.7 mg/dL (0.7-1.2); ESTIMATED GFR > 60; GLUCOSE 151 mg/dL (70-104); PHOSPHORUS 3.4 mg/dL (2.7-4.5); POTASSIUM 3.9 mmol/L (3.5-5.1); SODIUM 135 mmol/L (136-145); TCO2 29 mmol/L (25-35)
[2018-09-03] MEDS: FLOMAX PO SCH ×2 (09:17→21:42)
[2018-09-03] MEDS: LOVENOX SUBQ SCH (09:17)
[2018-09-03] MEDS: CENTRUM SILVER PO SCH (09:18)
[2018-09-03] MEDS: KEFLEX LIQUID PO SCH ×4 (09:18→21:44)
[2018-09-03] MEDS: MIRAPEX PO SCH ×2 (09:18→21:40)
[2018-09-03] MEDS: KEPPRA LIQUID PEG SCH ×2 (09:18→21:44)
[2018-09-03] MEDS: AYR NASAL SPRAY NAS SCH ×2 (09:42→21:00)
[2018-09-03] MEDS: COLACE LIQUID PEG SCH ×2 (09:42→21:41)
[2018-09-03] MEDS: RASAGILINE MESYLATE PO SCH (12:37)
--- NOTE | 2018-09-03 17:22 | PROGRESS NOTE ---
DATE: 09/03/2018 No acute events overnight. The patient's mother states he is much more alert and awake today than before and the mother agrees to try and remove the North catheter. Mr. Reynaga is nonverbal. Currently he is drowsy. VITALS: Temperature 97.7 degrees, pulse 91, respiratory rate 18, blood pressure 110/61, saturating 98% room air. PHYSICAL EXAMINATION: General: Does not appear in acute distress. Oral cavity is moist with pool of saliva. Air entry bilaterally equal. No wheeze, rhonchi. S1, S2 normal. No murmur or gallop except diastolic murmur affecting left lower sternal border. Abdomen has abdominal binder. There is a PEG tube in place with tube feeds ongoing. He has urine catheter and I placed order to remove it. He is drowsy but arousable currently sleepy. LABS: His BMP is unremarkable today. ASSESSMENT AND PLAN: 1. Right lower lobe aspiration pneumonia status post intravenous cefepime and vancomycin for a total of 10 days of antibiotics completed on August 31. Staphylococcus epidermidis urinary tract infection status post antibiotics. I will remove his North catheter today. At home he was able to make urine by himself and had only required intermittent catheterization. 2. Poor p.o. intake due to chronic dysphagia in the setting of cerebral palsy and Parkinson disease status post percutaneous endoscopic gastrostomy tube placement on September 01. Dietitian on board for tube feeds recommendation. 3. History of cerebral palsy, seizure disorder and Parkinson disease. Continue home levetiracetam, pramipexole, carbidopa levodopa and rasagiline. Patient has been increasingly more lethargic and has been experiencing more of symptoms recently. After discussion with patient's mother I would consult Neurology to see if any medication adjustment needs to be made. He is no longer receiving controlled release long-acting levodopa carbidopa now. 4. History of urine retention in the past. Continue tamsulosin. DISPOSITION: The plan is to discharge patient back to [facility] tomorrow. Plan of care discussed with mother. All of her questions been answered. cc: Trent Benjamin MD
[2018-09-04] MEDS: MIRALAX PEG SCH ×2 (02:32→08:32)
[2018-09-04] MEDS: XOPENEX NEB INH SCH ×3 (03:20→11:55)
[2018-09-04] MEDS: SINEMET 25/100 PO SCH ×3 (06:17→13:23)
[2018-09-04 08:09] LABS: AGAP 10; BUN 12 mg/dL (8-22); CHLORIDE 96 mmol/L (98-107); COSMO 271; CREATININE 0.7 mg/dL (0.7-1.2); ESTIMATED GFR > 60; GLUCOSE 147 mg/dL (70-104); MAGNESIUM 2.1 mg/dL (1.5-2.7); PHOSPHORUS 4.1 mg/dL (2.7-4.5); POTASSIUM 3.9 mmol/L (3.5-5.1); SODIUM 134 mmol/L (136-145); TCO2 28 mmol/L (25-35)
[2018-09-04] MEDS: LOVENOX SUBQ SCH (08:33)
[2018-09-04] MEDS: KEPPRA LIQUID PEG SCH (08:33)
[2018-09-04] MEDS: RASAGILINE MESYLATE PO SCH (08:33)
[2018-09-04] MEDS: KEFLEX LIQUID PO SCH ×2 (08:33→13:24)
[2018-09-04] MEDS: COLACE LIQUID PEG SCH (08:33)
[2018-09-04] MEDS: AYR NASAL SPRAY NAS SCH (08:34)
[2018-09-04] MEDS: FLOMAX PO SCH (08:34)
[2018-09-04] MEDS: MIRAPEX PO SCH (08:34)
[2018-09-04] MEDS: CENTRUM SILVER PO SCH (08:34)
--- NOTE | 2018-09-04 12:30 | DISCHARGE SUMMARY ---
ADMISSION DATE: 08/22/2018 DISCHARGE DATE: 09/04/2018 PRIMARY CARE PHYSICIAN: None. ADMITTING DIAGNOSES: 1. Suspected aspiration pneumonia. 2. Respiratory distress. 3. Cerebral palsy. 4. Seizure disorder. DISCHARGE DIAGNOSES: 1. Right lower lobe aspiration pneumonia leading to acute hypoxic respiratory failure. 2. Poor p.o. intake due to chronic dysphagia in the setting of cerebral palsy and Parkinson's disease, status post percutaneous endoscopic gastrostomy tube placement on 09/01/2018. 3. History of cerebral palsy and seizure disorder and Parkinson's disease. 4. Urinary retention requiring North catheter which was removed at the time of discharge SUMMARY OF FINDINGS: This is a 53-year-old male who resides at [facility] with a history of cerebral palsy, Parkinson's and seizures. He was sent to the emergency room due to having shortness of breath, was suspected possibly he had aspirated. His white blood cell count on arrival was 15.15. His chest x-ray showed small infiltrates versus pulmonary edema. He was placed on IV antibiotics. We did deep suctioning, DuoNebs, placed on seizure precautions. He was initially admitted to the Intensive Care Unit. An NG tube was placed on 08/25/2018. We consulted Pulmonology. He continued to remove his NG tube and would not leave it in place, so we consulted GI who placed a PEG tube on 09/01/2018. The caregiver assisted living was consulted and made recommendations for the tube feedings. They recommended Jevity 1.5 at a goal rate of 50 mL an hour with 912 mL of free water with 600 mL of water flush for a total of 1512 mL of water daily. It appears he is tolerating his tube feedings well. They consulted Neurology to discuss any medication changes that may need to be done on this patient, but otherwise, it is felt that he is ready to be discharged back to the longterm. DISCHARGE MEDICATIONS: Dulcolax 10 mg per rectum p.r.n., Sinemet 25/100 one p.o. 4 times daily, Colace 100 mg p.o. b.i.d., multivitamin p.o. daily, Mirapex 1.5 mg p.o. nightly at bedtime and 1 mg p.o. q.a.m., rasagiline mesylate 0.5 mg p.o. daily, nasal spray 1 b.i.d., tamsulosin 0.4 mg p.o. b.i.d., Tylenol 650 mg p.o. q.6 hours p.r.n., glucosamine chondroitin tablet 1 p.o. daily, Keppra 500 mg p.o. b.i.d., and omeprazole 40 mg 1 tablet p.o. before meals. FOLLOWUP: He will need to follow up with his primary care physician at the longterm. This is a 35 minute discharge. Dictated by LISA Wilde for Trent Benjamin MD cc: LISA Wilde MD I agree with most components of discharge summary mentioned above. A separate addendum has been dictated. [facility]
[2018-09-04 14:13] VITALS: BP 119/61
--- NOTE | 2018-09-04 21:47 | DISCHARGE SUMMARY ---
ADMISSION DATE: 08/22/2018 DISCHARGE DATE: 09/04/2018 ADDENDUM REPORT An addendum to discharge summary dictated by the nurse practitioner. I agree with most components of discharge summary. The patient did not have any acute overnight events. Mr. Reynaga is currently much more awake and alert and interactive. He is working with Physical Therapy. His urine catheter has been taken out. He states he did not have his breakfast and he is feeling sad about it. Temperature 98, pulse 80, respiratory rate 16, blood pressure 110/66, saturating 98% on room air. PHYSICAL EXAMINATION: General: Does not appear in any acute distress. Oral cavity is moist. Air entry bilaterally equal. No wheeze, rhonchi, crackles. S1, S2 normal. No murmur or gallop, except diastolic murmur at the left lower sternal border. Abdomen has abdominal binder. There is a PEG tube feed ongoing. His urine catheter has been removed. LABS: His BMP is unremarkable. ASSESSMENT AND PLAN: He is status post antibiotics for aspiration pneumonia and because of his persistent dysphagia he got his PEG tube. Plan is to discharge him on PEG tube feed to [facility]. He will continue most of his medications for his cerebral palsy, seizure, as well as Parkinson's disease and as per the family's request I have consulted Neurology to see him since patient has not been able to see his neurologist, who is quite far. My plan is to discharge him back to his [facility] today. COORDINATION TIME: More than 30 minutes were spent in discharging this patient. cc: MD BIANCA Foley
--- NOTE | 2018-09-06 12:01 | CONSULTATION ---
DATE OF CONSULTATION: 09/04/2018 HISTORY OF PRESENT ILLNESS: Mr. Reynaga is known to my practice and he has regular outpatient neurology follow-up and management with Dr. Greer in [place]. Mother reports last visit to Dr. Greer was about 3 months ago. 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 He had a few episodes thought to be seizure as an adult a few years ago, and these may be the only definite recognized adulthood seizures. He has been taking levetiracetam 500 mg b.i.d. since the episodes a few years ago with no further seizure-like behavior. He developed parkinsonism several years ago and has been treated with Sinemet and pramipexole. He has tolerated that regimen. He did have some periods of chorea associated with higher Sinemet dose in the past, but that has not been recognized recently. Mother reports she can tell definite benefit dose by dose when he has Sinemet. She reports he seems better able to get himself up and get along with his walker with Sinemet on board than when he is at end of dose or if he is late for a dose. He has had some trouble with swallowing in recent months. He seems to get choked easily. He presented this time with reported shortness of breath and likely aspiration pneumonia. Mother does not notice his trouble swallowing to be linked to the Sinemet dose cycle. Workup here includes noncontrast CT showing nothing remarkable. Last prior reported CT in this system was 05/28/2014. Lab work this admission shows sodium 134-135, blood sugars 110s-150s, nothing else remarkable. He has been afebrile throughout this admission. On exam, Blu is awake and alert. He followed some simple commands. He had limited conversation with me, and I could understand some of what he said. There is diffuse rigidity in the limbs with cogwheeling throughout. There was not resting tremor or other abnormal movement. He was slow, but performed [id number] without evidence of cerebellar deficit. Plantar response is silent bilaterally. He has good lateral eye movement. Upgaze looks good today. Facial motility is diminished bilaterally. Tongue is midline. I did not test his gait. IMPRESSION: 1. Static encephalopathy, mental retardation, childhood seizure disorder, possibly two brief adulthood seizures occurring in a short time frame a few years ago. 2. Parkinsonism. Mother's report that he seems distinctly improved dose by dose with Sinemet is consistent with idiopathic Parkinson disease. I do not have history to suggest parkinsonism as the primary reason for his dysphagia and aspiration, but we might consider increasing his levodopa, probably by reducing the dose interval since he may have had chorea with higher levodopa dose in the past. Another option would be to increase pramipexole, or to reduce or stop pramipexole prior to increasing levodopa. I will leave these decisions to Dr. Greer. Thanks for asking Neurology to see Mr. Reynaga. cc: MD BIANCA Contreras III
--- NOTE | 2018-09-06 14:45 | GASTROENTEROLOGY PROGRESS NOTE ---
DATE: 09/04/2018 SUBJECTIVE: The patient is tolerating his tube feeding per PEG tube. Per nurse report, residuals are within normal limits. I have spoke with his mother. I believe there are plans for him to go back to [facility]. OBJECTIVE: Vital signs: Temperature 98.0, pulse 80, respirations 16, blood pressure 117/66. General: The patient is awake in no acute distress. Abdomen: PEG site looks good. Abdominal binder in place. LABORATORY: Chemistry: Sodium 134, potassium 3.9, chloride 96, CO2 28, BUN 12, creatinine 0.7, glucose 147. ASSESSMENT AND PLAN: 1. Pneumonia. Patient received antibiotics. 2. Questionable aspiration pneumonia. Continue aspiration precautions. 3. Dysphagia, poor oral intake. Percutaneous endoscopic gastrostomy tube was placed on 09/01/2018. The patient is tolerating his tube feedings. The patient will most likely be discharged back to [facility]. Recommend they follow up with us as needed. I have discussed this case with Dr. Boyd. Dictated by LISA Bronson for Edward Boyd MD cc: LISA Almeida MD
== END 2018-09-04 14:19 | DRG 871 ==
LOC: ED 22:50 → ICU 08-22 02:37 → SUATTDRO 08-22 02:37 → 3N 08-24 10:03
PROVIDERS: ATTEND Internal Medicine
CPT/HCPCS: 51702; 71010; 71045; 74000; 74018; 80048; 80053; 80202; 81001; 82040; 82805; 82948; 83036; 83605; 83735; 83880; 84100; 84134; 85025; 87040; 87070; 87077; 87088; 87186; 87205; 87449; 87899; 89220; 93005; 94640; 94760; 94761; 96361; 96365; 96367; 96375; 97110; 97162; 99285; A9270; J0131; J0690; J0692; J0696; J1650; J2543; J3370; J7030; J7040; J7050; J7120; S0030; XXXXX

== ENCOUNTER 2018-09-12 10:07 | Inpatient (IN) ==
--- NOTE | 2018-09-12 10:44 | EKG Report ---
Test Performed on : 09/12/2018 10:11:31 AM Test Reason : sob Blood Pressure : / mmHG Vent. Rate : 149 BPM Atrial Rate : 149 BPM P-R Int : 130 ms QRS Dur : 136 ms QT Int : 284 ms P-R-T Axes : -05 254 043 degrees QTc Int : 447 ms Sinus tachycardia. Right bundle branch block , plus right ventricular hypertrophy Possible Lateral infarct , age undetermined Inferior infarct , age undetermined Abnormal ECG When compared with ECG of 21-AUG-2018 23:08, (Unconfirmed) Borderline criteria for Lateral infarct are now present Inferior infarct is now present Unconfirmed Result
--- NOTE | 2018-09-12 10:57 | Diag Imaging Result Doc PS360 ---
CHEST-1 VIEW - 09/12/2018 INDICATION: aspiration COMPARISON: 08/31/2018 FINDINGS: The nasogastric tube has been removed. There are extensive bilateral diffuse infiltrates. On today's exam, this is worse in the left base and improved in the right base. Heart size remains stable. No large pleural effusion. IMPRESSION: Heterogeneous, shifting infiltrates bilaterally. Electronically signed by Hema Solis 09/12/2018 10:55 AM
[2018-09-12] MEDS ORDERED: NS 1,000 ML IV ONE ×2 (11:14→16:58)
[2018-09-12] MEDS ORDERED: LEVAQUIN 500 MG/D5W 500 MG/100 ML IVPB IV ONE (11:15)
[2018-09-12 11:16] LABS: INR 0.97; PROTIME 13.6 Seconds (11.0-16.0)
[2018-09-12 11:17] LABS: PTT 27.6 Seconds (22.3-41.8)
--- NOTE | 2018-09-12 11:19 | EKG Report ---
Test Performed on : 09/12/2018 10:12:01 AM Test Reason : REPEAT FOR CONFIRMATION Blood Pressure : / mmHG Vent. Rate : 150 BPM Atrial Rate : 150 BPM P-R Int : 130 ms QRS Dur : 134 ms QT Int : 280 ms P-R-T Axes : -12 259 040 degrees QTc Int : 442 ms Sinus tachycardia. with fusion complexes Right bundle branch block , plus right ventricular hypertrophy Possible Lateral infarct (cited on or before 12-SEP-2018) Abnormal ECG When compared with ECG of 12-SEP-2018 10:11, (Unconfirmed) fusion complexes are now present Unconfirmed Result
[2018-09-12 11:21] LABS: AGAP 14; ALB/GLOB RATIO 0.9; ALBUMIN 3.7 g/dL (3.5-5.0); ALKALINE PHOSPHATASE 69 U/L (32-122); BUN 17 mg/dL (8-22); CALCIUM 9.8 mg/dL (8.8-10.2); CHLORIDE 91 mmol/L (98-107); COSMO 271; CREATININE 0.8 mg/dL (0.7-1.2); ESTIMATED GFR > 60; GLUCOSE 191 mg/dL (70-104); GOT 40 U/L (10-34); GPT 45 U/L (10-44); POTASSIUM 4.7 mmol/L (3.5-5.1); SODIUM 132 mmol/L (136-145); TCO2 27 mmol/L (25-35); TOTAL BILIRUBIN 1.39 mg/dL (0.20-1.00)
[2018-09-12 11:43] LABS: BASO# 0.03 X1000 (0.0-0.2); BASO% 0.2 % (0.0-0.8); EOS# 0.02 X1000 (0.0-0.7); EOS% 0.1 % (0.0-10.0); HEMATOCRIT 48.4 % (42.0-52.0); HEMOGLOBIN 16.9 g/dL (14.0-18.0); IMM GRAN# 0.09 X1000 (0.0-0.04); IMM GRAN% 0.7 % (0.0-0.5); LYMPH# 0.59 X1000 (1.2-3.4); LYMPH% 4.4 % (20.5-51.1); MCH 29.6 PG (27-31); MCHC 34.9 g/dL (33-37); MCV 84.9 FL (81-99); MONO# 0.82 X1000 (0.11-0.59); MONO% 6.1 % (1.7-9.3); MPV 9.7 FL (7.4-10.4); NEUT# 11.82 X1000 (1.4-6.5); NEUT% 88.5 % (42.2-75.2); PLT 424 X1000 (130-400); RDW 14.2 % (11.5-14.5); WBC 13.37 X1000 (4.8-10.8)
[2018-09-12 11:53] LABS: BANDS 6 % (0-1); LYMPHS 6 % (21-51); MONO 6 % (1-9); SEGS 82 % (42-75)
[2018-09-12 12:25] LABS: ALLEN TEST YES; BE 5.2 mmoll (-3.0-3.0); BLOOD TYPE ARTERIAL; HCO3-(ACT) 28.7 mmoll (20.0-26.0); METHB 1.2 % (0.0-1.5); O2(CT) 20.8 mL/dL (15.0-23.0); PCO2(98.6) 34 mmHg (35-45); PO2(98.6) 52 mmHg (60-100); SAMPLE BLOOD; SAO2 92.3 % (95.0-100.0); THB 16.6 g/dL (11.5-17.4); pH(98.6) 7.52 (7.35-7.45)
[2018-09-12 12:26] LABS: MODALITY NRB
[2018-09-12 12:27] LABS: O2HB 89.5 % (95.0-99.0)
[2018-09-12 13:02] LABS: URINE SOURCE CATH
[2018-09-12 13:04] LABS: BILIRUBIN URINE NEGATIVE (NEGATIVE); BLOOD URINE NEGATIVE (NEGATIVE); COLOR YELLOW; GLUCOSE URINE NEGATIVE (NEGATIVE); KETONE URINE NEGATIVE (NEGATIVE); LEUKOCYTES URINE TRACE (NEGATIVE); NITRITE URINE NEGATIVE (NEGATIVE); PH URINE 6.5; PROTEIN URINE TRACE mg/dL (NEGATIVE); SP GRAVITY URINE 1.013; TURBIDITY URINE CLEAR (CLEAR); UROBILINOGEN URINE 2 mg/dL (NORMAL)
[2018-09-12 13:07] LABS: UR EPITHELIAL CELLS <10 /HPF (<10); URINE BACTERIA NEGATIVE /HPF; URINE RBC <10 /HPF (<10); URINE WBC <10 /HPF (<10)
--- NOTE | 2018-09-12 13:08 | PROVIDER DOCUMENTATION ---
This chart was entered by Cecilia Osborn Scribe, acting as scribe for Denver Curry MD. HPI-Respiratory General - General Stated Complaint: difficulty breathing Time Seen by Provider: 09/12/18 10:14 Source: EMS Allergies/Adverse Reactions: Patient Allergies Allergy/AdvReac Type Severity Reaction Status Date / Time sedative and relaxants AdvReac Mild makes pt Uncoded 08/22/18 04:52 wild Home Medications: Home Medication List Medication Instructions Recorded Confirmed Last Taken Type Polyethylene Glycol 3350 [Miralax] 17 gm PO HS PRN #30 powd.pack 05/16/1307/0703/21/16 06:00 Rx 17 GM Pramipexole Di-HCl [Mirapex] 1.5 mg PO QHS 05/28/14 08/22/18 04/10/16 06:00 History 1.5 MG Vdtxizab-Kqlgoxr-Fyzh 149-Hyal 1 each PO DAILY 05/05/15 08/22/18 04/09/16 06:00 History [Glucosamine Chondroitin Tablet] 1 EACH Acetaminophen [Tylenol] 650 mg PO Q6H PRN PRN #0 tablet 04/16/16 08/22/18 Unknown Rx Docusate Sodium [Colace] 100 mg PO BID #0 capsule 04/21/16 08/22/18 Unknown Rx Levetiracetam [Keppra] 500 mg PO BID #60 tablet 05/02/16 08/22/18 Unknown Rx Multivitamin,Therapeutic [Thera] 1 ea PO DAILY 08/22/18 08/22/18 Unknown History Omeprazole 1 tab PO AC 08/22/18 08/22/18 Unknown History Pramipexole Di-HCl [Mirapex] 1 mg PO QAM 08/22/18 08/22/18 Unknown History Rasagiline Mesylate 0.5 mg PO DAILY 08/22/18 08/22/18 Unknown History Sodium Chloride/Aloe Vera [[place] 1 spray INTRANASAL BID 08/22/18 08/22/18 Unknown History Saline Nasal Gel [place]] Tamsulosin HCl 0.4 mg PO BID 08/22/18 08/22/18 Unknown History Bisacodyl [Dulcolax] 10 mg TX DAILY PRN PRN supp 09/03/18 Unknown Rx Carbidopa/Levodopa [Sinemet 25/100] 1 ea PO 0600,0900,1200,1600 tab 09/03/18 Unknown Rx - History of Present Illness-Resp Nature of Presenting Problem: Patient is a 53 year old male who presents to the ED via EMS with difficulty breathing. EMS states half-way staff stated patient had an episode of vomiting this morning and could have possibly aspirated. Patient has a history of aspiration pneumonia. Patient was diagnosed with right lower lobe pneumonia on 09/04/18. alf staff stated patient was 89% on 4.5 L Severity in ED: reports: mild Onset/Duration: reports: this morning Timing: reports: still present Cough Quality/Degree: reports: moderate, productive cough Current Respiratory Medication Therapy: Initiated see nurses note Associated Symptoms: reports: cough, shortness of breath Similar Symptoms Previously?: Yes Recently seen or treated by another doctor?: Yes Review of Systems - Adult - REVIEW OF SYSTEMS - ADULT ROS:: unobtainable per condition Constitutional: reports: no symptoms reported Eyes: reports: no symptoms reported Ears, Nose, Mouth & Throat: reports: no symptoms reported Cardiovascular: reports: no symptoms reported Respiratory: reports: no symptoms reported Gastrointestinal: reports: no symptoms reported Genitourinary: reports: no symptoms reported Musculoskeletal: reports: no symptoms reported Integumentary: reports: no symptoms reported Neurological: reports: no symptoms reported Psychiatric: reports: no symptoms reported Endocrine: reports: no symptoms reported Hematologic/Lymphatic: reports: no symptoms reported Allergic/Immunologic: reports: no symptoms reported All Other Systems: Reviewed and Negative Past History - Adult - PAST MEDICAL HISTORY-ADULT Review of Records: reports: Old Records Reviewed, Nursing Assessment Review, M edications Reviewed, Social history reviewed & non-contributory. 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) - PRIOR SURGERIES/PROCEDURES Surgical/Procedure History: reports: reviewed, not pertinent, orthopedic (extremity) (foot), other (heart surgery as a child) - PRIOR HOSPITALIZATIONS Prior Hospitalizations: reports: for other non-related - IMMUNIZATION STATUS Childhood Immunizations: See Nurse Assessment Flu Vaccine: See Nurse Assessment - FAMILY HISTORY Family History: reviewed, not pertinent - SOCIAL HISTORY Smoking: non-smoker Living Situation: care facility (SNF) Physical Exam-General - PHYSICAL EXAM-ADULT Initial Vital Signs Reviewed: Yes - CONSTITUTIONAL General Appearance: alert, no apparent distress. negative: obtunded - RESPIRATORY Respiratory: chest non-tender, rhonchi (right). negative: accessory muscle use, wheezing - CARDIOVASCULAR Cardiovascular: normal peripheral pulses, regular rate, rhythm. negative: tachycardia, systolic murmur - GASTROINTESTINAL (ABDOMEN) Abdominal Exam: normal bowel sounds, non tender, soft, other (G tube present to LUQ). negative: guarding, rebound - MUSCULOSKELETAL Extremity: non-tender, normal inspection. negative: deformity, erythema - SKIN Integumentary: normal color, normal turgor, diaphoresis. negative: ecchymosis, erythema, jaundice - NEUROLOGIC Neurologic: other (unable to assess per patient's condition) - PSYCHIATRIC Psych/Mental Status: other (unable to assess per patient's condition) Progress - PLAN OF CARE/RESULTS Progress/Plan/Lab Results: Vital Signs - 8 hr 09/12/18 10:26 09/12/18 10:42 09/12/18 10:47 Temperature Pulse Rate 134 H 154 H Respiratory Rate 40 H Blood Pressure 129/75 122/89 O2 Sat by Pulse Oximetry 94 L 96 98 09/12/18 10:50 09/12/18 10:52 09/12/18 10:57 Temperature 100.9 F H Pulse Rate 143 H 139 H 140 H Respiratory Rate 40 H Blood Pressure 126/83 127/79 O2 Sat by Pulse Oximetry 96 96 95 Laboratory Results - last 24 hr 09/12/18 09/12/18 09/12/18 10:16 10:16 10:16 WBC RBC Hgb Hct MCV MCH MCHC RDW Std Deviation Plt Count MPV Immature Gran % (Auto) Neut % (Auto) Lymph % (Auto) Emery % (Auto) Eos % (Auto) Baso % (Auto) Immature Gran # (Auto) Neut # (Auto) Lymph # (Auto) Emery # (Auto) Eos # (Auto) Baso # (Auto) Segmented Neutrophils Band Neutrophils Lymphocytes Monocytes PT INR PTT (Actin FS) Specimen Type Sample Site pH pCO2 pO2 HCO3 Base Excess Oxyhemoglobin ABG O2 Sat (Calculated) ABG O2 Saturation ABG Carboxyhemoglobin ABG Methemoglobin Missael Test A-a O2 Difference Total Hemoglobin Lactate Liter Flow Blood Gas Modality FiO2 % Sodium 132 L Potassium 4.7 Chloride 91 L Carbon Dioxide 27 Anion Gap 14 BUN 17 Creatinine 0.8 Estimated GFR/1.73 m2 > 60 BUN/Creatinine Ratio 21 Glucose 191 H POC Glucose Calculated Osmolality 271 Calcium 9.8 Total Bilirubin 1.39 H AST 40 H ALT 45 H Alkaline Phosphatase 69 Creatine Kinase 180 Troponin T Wbm-A-Mpgfisdxlwa Pept 235 H Total Protein 8.0 Albumin 3.7 Globulin 4.3 Albumin/Globulin Ratio 0.9 Plasma Lactate Urine Source Urine Color Urine Turbidity Urine pH Ur Specific Bells Urine Protein Ur Glucose (Stick) Ur Ketones (Stick) Urine Blood Urine Nitrite Urine Bilirubin Urobilinogen Dipstick Urine Leukocytes 09/12/18 09/12/18 09/12/18 10:16 10:16 10:16 WBC RBC Hgb Hct MCV MCH MCHC RDW Std Deviation Plt Count MPV Immature Gran % (Auto) Neut % (Auto) Lymph % (Auto) Emery % (Auto) Eos % (Auto) Baso % (Auto) Immature Gran # (Auto) Neut # (Auto) Lymph # (Auto) Emery # (Auto) Eos # (Auto) Baso # (Auto) Segmented Neutrophils Band Neutrophils Lymphocytes Monocytes PT 13.6 INR 0.97 PTT (Actin FS) 27.6 Specimen Type Sample Site pH pCO2 pO2 HCO3 Base Excess Oxyhemoglobin ABG O2 Sat (Calculated) ABG O2 Saturation ABG Carboxyhemoglobin ABG Methemoglobin Missael Test A-a O2 Difference Total Hemoglobin Lactate Liter Flow Blood Gas Modality FiO2 % Sodium Potassium Chloride Carbon Dioxide Anion Gap BUN Creatinine Estimated GFR/1.73 m2 BUN/Creatinine Ratio Glucose POC Glucose Calculated Osmolality Calcium Total Bilirubin AST ALT Alkaline Phosphatase Creatine Kinase Troponin T < 0.010 Aza-H-Oyhmowiqldr Pept Total Protein Albumin Globulin Albumin/Globulin Ratio Plasma Lactate 1.9 Urine Source Urine Color Urine Turbidity Urine pH Ur Specific Bells Urine Protein Ur Glucose (Stick) Ur Ketones (Stick) Urine Blood Urine Nitrite Urine Bilirubin Urobilinogen Dipstick Urine Leukocytes 09/12/18 09/12/18 09/12/18 10:23 11:00 11:00 WBC 13.37 H RBC 5.70 Hgb 16.9 Hct 48.4 MCV 84.9 MCH 29.6 MCHC 34.9 RDW Std Deviation 14.2 Plt Count 424 H MPV 9.7 Immature Gran % (Auto) 0.7 H Neut % (Auto) 88.5 H Lymph % (Auto) 4.4 L Emery % (Auto) 6.1 Eos % (Auto) 0.1 Baso % (Auto) 0.2 Immature Gran # (Auto) 0.09 H Neut # (Auto) 11.82 H Lymph # (Auto) 0.59 L Emery # (Auto) 0.82 H Eos # (Auto) 0.02 Baso # (Auto) 0.03 Segmented Neutrophils 82 H Band Neutrophils 6 H Lymphocytes 6 L Monocytes 6 PT INR PTT (Actin FS) Specimen Type Sample Site pH pCO2 pO2 HCO3 Base Excess Oxyhemoglobin ABG O2 Sat (Calculated) ABG O2 Saturation ABG Carboxyhemoglobin ABG Methemoglobin Missael Test A-a O2 Difference Total Hemoglobin Lactate Liter Flow Blood Gas Modality FiO2 % Sodium Potassium Chloride Carbon Dioxide Anion Gap BUN Creatinine Estimated GFR/1.73 m2 BUN/Creatinine Ratio Glucose POC Glucose 186 H Calculated Osmolality Calcium Total Bilirubin AST ALT Alkaline Phosphatase Creatine Kinase 198 Troponin T Hxl-F-Rputajguoui Pept Total Protein Albumin Globulin Albumin/Globulin Ratio Plasma Lactate Urine Source Urine Color Urine Turbidity Urine pH Ur Specific Bells Urine Protein Ur Glucose (Stick) Ur Ketones (Stick) Urine Blood Urine Nitrite Urine Bilirubin Urobilinogen Dipstick Urine Leukocytes 09/12/18 09/12/18 12:10 12:50 WBC RBC Hgb Hct MCV MCH MCHC RDW Std Deviation Plt Count MPV Immature Gran % (Auto) Neut % (Auto) Lymph % (Auto) Emery % (Auto) Eos % (Auto) Baso % (Auto) Immature Gran # (Auto) Neut # (Auto) Lymph # (Auto) Emery # (Auto) Eos # (Auto) Baso # (Auto) Segmented Neutrophils Band Neutrophils Lymphocytes Monocytes PT INR PTT (Actin FS) Specimen Type ARTERIAL Sample Site R BRACHIAL pH 7.52 H pCO2 34 L pO2 52 L HCO3 28.7 H Base Excess 5.2 H Oxyhemoglobin 89.5 L* ABG O2 Sat (Calculated) 20.8 ABG O2 Saturation 92.3 L ABG Carboxyhemoglobin 1.90 ABG Methemoglobin 1.2 Missael Test YES A-a O2 Difference 619.0 Total Hemoglobin 16.6 Lactate 1.70 Liter Flow 15.0 Blood Gas Modality NRB FiO2 % 100.0 Sodium Potassium Chloride Carbon Dioxide Anion Gap BUN Creatinine Estimated GFR/1.73 m2 BUN/Creatinine Ratio Glucose POC Glucose Calculated Osmolality Calcium Total Bilirubin AST ALT Alkaline Phosphatase Creatine Kinase Troponin T Zbt-G-Tdjkxsojqyv Pept Total Protein Albumin Globulin Albumin/Globulin Ratio Plasma Lactate Urine Source CATH Urine Color YELLOW Urine Turbidity CLEAR Urine pH 6.5 Ur Specific Bells 1.013 Urine Protein TRACE A Ur Glucose (Stick) NEGATIVE Ur Ketones (Stick) NEGATIVE Urine Blood NEGATIVE Urine Nitrite NEGATIVE Urine Bilirubin NEGATIVE Urobilinogen Dipstick 2 A Urine Leukocytes TRACE A Orders Category Date Time Status Cardiac Monitoring DIRECTED Care 09/12/18 10:48 Active IV Insertion ORDERED Care 09/12/18 10:48 Completed Notify MD of + Sepsis Screen NOW Care 09/12/18 10:48 Active Notify Physician As Ordered Care 09/12/18 10:48 Active Nursing- Obtain EKG ONCE Care 09/12/18 10:34 Active Oxygen Therapy- ED Nursing DIRECTED Care 09/12/18 10:34 Active CHEST-1 VIEW [RAD] Stat Exams 09/12/18 10:34 Completed ABG [RESP] Routine Lab 09/12/18 12:10 Completed BLOOD CULTURE [BLDCUL] Stat Lab 09/12/18 11:00 Results CBC WITH ELECTRONIC DIFF [HEME] Stat Lab 09/12/18 11:00 Completed CK PROFILE [SP CHEM] Stat Lab 09/12/18 10:16 Completed CK PROFILE [SP CHEM] Stat Lab 09/12/18 11:00 Completed COMPREHENSIVE METABOLIC PANEL [CHEM] Stat Lab 09/12/18 10:16 Completed LACTATE, PLASMA [CHEM] Lab 09/12/18 14:00 Uncollected LACTATE, PLASMA [CHEM] Lab 09/12/18 17:00 Uncollected LACTATE, PLASMA [CHEM] Q3H Lab 09/12/18 10:16 Completed PRO B-NATRIURETIC PEPTIDE Stat Lab 09/12/18 10:16 Completed PROTIME WITH INR [COAG] Stat Lab 09/12/18 10:16 Completed PTT [COAG] Stat Lab 09/12/18 10:16 Completed TROPONIN T Stat Lab 09/12/18 10:16 Completed TROPONIN T Stat Lab 09/12/18 11:00 Received URINALYSIS W/POSS RFLX CULT [URINALYSIS] Stat Lab 09/12/18 12:50 Received 0.9% Sodium Chloride Inj [Ns] 1,000 ml Med 09/12/18 11:14 Discontinued IV 999 mls/hr Levofloxacin 500 mg/D5w [Levaquin 500 mg/D5w] Med 09/12/18 11:15 Discontinued 500 mg in 100 ml IV NOW Oxygen Device Stat Oth 09/12/18 10:48 Active EKG [EKG] Stat Ther 09/12/18 10:34 Draft EKG [EKG] Stat Ther 09/12/18 10:45 Draft EKG [EKG] Stat Ther 09/12/18 12:30 Ordered Transfer/Admit Order [TRANSFER] Routine Transfer 09/12/18 12:49 Ordered 1241 - Dr. Curry consulted with LISA Ordoñez for Hospitalist, about patient. Agreed to admit for Hospitalist. Result Diagrams: 09/12/18 11:00 09/12/18 10:16 - EKG 1 Time of EKG reading by physician:: 10:12 EKG Read and Signed by:: Denver Curry EKG Interpretation (*Must complete 3 of following elements*): Abnormal Rate: 150 Rhythm: sinus tachycardia with fusion complexes [place]: normal QRS: RBB (plus right ventricular hypertrophy) [place] Interval: normal Comments: possible lateral infarct, age undetermined - XRAY 1 XRAY Study: Chest Impression: See EMR Report (CHEST-1 VIEW - 09/12/2018 INDICATION: aspiration COMPARISON: 08/31/2018 FINDINGS: The nasogastric tube has been removed. There are extensive bilateral diffuse infiltrates. On today's exam, this is worse in the left base and improved in the right base. Heart size remains stable. No large pleural effusion. IMPRESSION: Heterogeneous, shifting infiltrates bilaterally. Electronically signed by Hema Solis 09/12/2018 10:55 AM 09/12/18 105 Interpreting Physician: Hema Solis MD Dictated Date/Time: 09/12/18 1053 cc: Denver Curry MD; None,PCP) - CONSULTS/PCP/HOSPITALIST Notification #1 *Consult/PCP/Hospitalist*: Randee at [facility] Time Discussed: 10:17 Reason/Comments: Dr. Curry consulted with Randee at the [facility]. Consult Disposition: other (will contact Cardiology) #2 Consult: ANNE Benavidez for [facility] Time Discussed: 10:18 Reason/Comments: Dr. Curry consulted with Pramod about patient Consult Disposition: other (Pramod states he will look at the EKG and call back.) #3 Consult: ANNE Benavidez for [facility] Time Discussed: 10:34 Reason/Comments: Dr. Curry consulted with Pramod about patient's EKG. Consult Disposition: other (Pramod stated he showed EKG to multiple Senior [employer] and all stated no STEMI present. Pramod states have the patient seen by in house cardiology.) Departure - Departure Date of Disposition Decision: 09/12/18 Time of Disposition Decision: 13:05 DIAGNOSIS: Aspiration pneumonia, Urinary tract infection, Hypoxia, Respiratory distress Disposition: ADMITTED INPATIENT 09 Certified Medical Emergency: Emergent Condition: Serious Referrals and Follow-Ups: None,PCP [Primary Care Provider] - - Critical Care Note This patient required my direct & personal management of CC.: No Attestation - Physician/ LESIA Attestation Patient care was provided by Advanced Practice Provider:: No The physician spent face to face time with patient:: Yes Advanced Practice Provider documentation review:: Supervising physician onsite and consulted in the evaluation and care of this patient. The physician did have a face to face encounter with the patient. This chart was documented by the indicated scribe, (Cecilia Osborn Scribe) and accurately reflects the services I performed and decisions made by me, Denver Curry MD, as attested by the provider's signature.
[2018-09-12] MEDS ORDERED: NS 500 ML IV ONE (14:41)
[2018-09-12] MEDS ORDERED: DUONEB (A & A) INH SCH (15:46)
[2018-09-12] MEDS ORDERED: TYLENOL PO PRN (15:46)
[2018-09-12] MEDS ORDERED: VANCOMYCIN IV PER PHARMACY MISC SCH (15:46)
[2018-09-12] MEDS ORDERED: DUONEB (A & A) INH PRN (15:46)
--- NOTE | 2018-09-12 16:15 | HISTORY AND PHYSICAL ---
CHIEF COMPLAINT: Nausea, vomiting, and aspiration per group home. HISTORY OF PRESENT ILLNESS: Mr. Reynaga is a 53-year-old male, who carries a past medical history of cerebral palsy, seizure disorder, probable Parkinson disease. He was brought to the ED secondary to aspirating after an episode of vomiting and was having difficulty breathing. Initially, EMS thought he was having a STEMI. All the information was sent to the cardiologists at [place], and they did not feel like he was having an acute STEMI. Actually, his cardiac enzymes are negative. Per his parents in the room, he has episodes where he is more awake and alert, oriented, and talking. He has not eaten since August 21 after having dinner. He now has a PEG tube through which he receives tube feeds and his medications. His mother has felt that he has always had some degree of difficulty swallowing, but here as of late, it did increase, which was the reason for his PEG tube placement. In the ED, he was found to have an elevated white count. He was tachycardiac, tachypneic, low-grade fever. However, his lactate was normal. We will go ahead and treat him for sepsis with IV fluid bolus, broad-spectrum antibiotics, and continue to trend his lactates. I did briefly get to speak to the parents about his code status or if we required intubation, they would like to make that decision if that time arises; they did not want to make any decisions at this point as far as his code status. Again we will admit him to the ICU and treat him for sepsis secondary to aspiration pneumonia. PAST MEDICAL HISTORY: 1. Recent aspiration pneumonia treatment with respiratory distress. 2. Cerebral palsy. 3. Seizure disorder. 4. Probable Parkinson disease. 5. Status post PEG tube placement for chronic dysphagia. PAST SURGICAL HISTORY: 1. Tetralogy of Fallot repair. 2. PEG tube placement on 09/01/2018. REVIEW OF SYSTEMS: Unable to obtain because the patient did not really communicate. He would jump every time I would touch him and try to speak to him. Did not really follow any commands. ALLERGIES: Sedatives and relaxants. HOME MEDICATIONS: Have not been verified. SOCIAL HISTORY: He is a permanent resident at [facility]. No smoking, alcohol, or illicit drug use. FAMILY HISTORY: reviewed. PHYSICAL EXAMINATION: VITAL SIGNS: Initial temperature was 100.9 degrees, heart rate 134, respirations 24, blood pressure 136/89, O2 is 98% on BiPAP. GENERAL: Mr. Reynaga is a 53-year-old male, who looks chronically ill, sitting up in the bed on BiPAP. HEENT: Atraumatic, normocephalic. PERRL. I was not able to assess mucous membranes as the patient was wearing the BiPAP. However, his lips did appear to be fairly dry. CARDIOVASCULAR: S1, S2 appreciated. No murmurs, gallops, or rubs noted. RESPIRATORY: Lung sounds rhonchi throughout the left, scattered rhonchi on the right. No wheezes noted. GASTROINTESTINAL: Appeared to be soft, nontender. Positive bowel sounds 4 quadrants. He does have a PEG tube noted. GENITOURINARY: North draining tea-colored urine. SKIN: Warm, dry, and intact. EXTREMITIES: No lower extremity edema. Bilateral pedal pulses are palpable. NEUROLOGIC: Hard to assess secondary to patient's condition. He did not follow commands. He did not answer any questions. He would just jump if I touched him or spoke directly to him, as if he was being startled. DIAGNOSTIC DATA: Chest x-ray shows heterogeneous shifting infiltrates bilaterally, worse in the left base and improved in the right. EKG: Sinus tachycardia with fusion complexes, a right bundle branch block, 150 beats per minute. EKGs were gone over with [facility]; they did not feel he was having a STEMI. White count 13, hemoglobin 16, hematocrit 48, platelet count is 424,000. Chemistry: Sodium 132, potassium 4.7, BUN 17, creatinine 0.8, blood glucose is 191, total bilirubin 1.39, AST 40, ALT 45. Troponin less than 0.010. ProBNP was 235. Plasma lactate 1.9. ABG: pH 7.52, pCO2 of 34, PO2 of 52, bicarbonate 28, base excess of 5, oxyhemoglobin was 89, O2 saturation was 92.3, lactate 1.7 on ABG. ASSESSMENT AND PLAN: 1. Probable sepsis. He has received 1 bolus of fluid. We will give him another 500. The patient was still tachycardic. We will change him to broad-spectrum antibiotics and treat him for his aspiration pneumonia. Continue with bronchodilators and aggressive pulmonary toilet. TCDB. Await blood cultures and sputum cultures. 2. Tachycardia will do another 500ml bolus EKG was reviewed by [facility] R/O STEMI. 2. Chronic dysphagia status post percutaneous endoscopic gastrostomy tube. Aware. 3. Aspiration pneumonia. We will continue to treat with broad spectrum, supplemental O2, bronchodilators, and aggressive pulmonary toilet. 4. Chronic dysphagia status post percutaneous endoscopic gastrostomy tube. The patient has not had any oral intake since August 21. We will continue tube feeds once they have been verified. 5. Cerebral palsy. Aware. 6. Seizure disorder. We will continue IV Keppra until his p.o. medications have been verified. 7. Probable Parkinson disease. We will continue his Sinemet via PEG tube once verified. 8. Recent treatment for aspiration pneumonia, believed to be secondary to his dysphagia. We will consider Gastroenterology consult to evaluate swallowing once he is over his acute illness. Further recommendation to follow physician evaluation and laboratory and diagnostic data. Dictated by LISA Abel for Andreas Thurston MD cc: Andreas Thurston MD [facility]
[2018-09-12 16:48] LABS: ALLEN TEST NO; BE 2.4 mmoll (-3.0-3.0); BLOOD TYPE ARTERIAL; HCO3-(ACT) 26.7 mmoll (20.0-26.0); O2(CT) 22.9 mL/dL (15.0-23.0); O2HB 94.8 % (95.0-99.0); PCO2(98.6) 33 mmHg (35-45); PO2(98.6) 71 mmHg (60-100); SAMPLE BLOOD; SAO2 97.3 % (95.0-100.0); THB 17.2 g/dL (11.5-17.4); pH(98.6) 7.49 (7.35-7.45)
[2018-09-12 16:49] LABS: MODALITY BI PAP
[2018-09-12] MEDS ORDERED: VANCOMYCIN 2,350 MG in NS 500 ML IV ONE (17:00)
[2018-09-12] MEDS: NS 1,000 ML IV SCH (18:14)
[2018-09-12] MEDS ORDERED: LOPRESSOR IV ONE (18:36)
[2018-09-12] MEDS ORDERED: CALMOSEPTINE OINTMENT TOP PRN (18:48)
--- NOTE | 2018-09-12 19:21 | PROGRESS NOTE ---
DATE: 09/12/2018 SUBJECTIVE: Patient came in with shortness of breath, severe. He had a recent aspiration pneumonia, cerebral palsy, seizure disorder. The patient was recently here for pneumonia, which was felt to be associated with dysphagia. He had a PEG tube placed. That was about 3 weeks ago. I would say by my count that was actually 8 days ago, but in any case, as far as I know he has not had any high residuals, but in any case, he is doing okay. He came in with shortness of breath, tachycardia, hypoxia. Chest x-ray confirms heterogenous shifting infiltrates bilaterally so he will be admitted for aspiration type pneumonia. Most likely, that is what is going on here. I had a prolonged discussion with the family about PEG tube will prevent aspiration from oral intake, but it will not prevent aspiration from tube feeds. It does not protect his airway. I think there was a bit of confusion there, but in any case, we will empirically put him on antibiotics. I am going to add Flagyl to his vancomycin, Levaquin just because of anaerobic coverage. He is on positive pressure ventilation. He is at risk for decompensation so he is in the ICU. Consulted Pulmonary. He has a significant tachycardia, but he has a right bundle so I think this may be wide complex tachycardia associated with a right bundle. I do not think he has ectopy per se. He is at risk for further decline. Family at this point wants everything done so we will continue to manage closely and see how he does. 35 minute critical care time for positive pressure ventilation ventilator, pneumonia. We will continue to monitor. This is a [id number] encounter note with Felicia Mathis. cc: Andreas Thurston MD
[2018-09-12] MEDS: FLAGYL 500 MG/NS 500 MG/100 ML IVPB IV SCH (19:43)
[2018-09-12] MEDS ORDERED: LOPRESSOR PO SCH (20:00)
[2018-09-12] MEDS: KEPPRA 500 MG in NS 100 ML IV SCH (20:35)
[2018-09-12] MEDS ORDERED: TORADOL IV ONE ×2 (20:40→21:00)
[2018-09-12] MEDS ORDERED: ZANTAC IV SCH (21:00)
[2018-09-12] MEDS: ATROVENT NEB INH SCH (21:06)
[2018-09-12] MEDS: XOPENEX NEB INH SCH (21:06)
--- NOTE | 2018-09-12 21:46 | PULMONOLOGY CONSULTATION ---
DATE: 09/12/2018 REQUESTING PHYSICIAN: Dr. Eduardo Thurston. REASON FOR CONSULTATION: Respiratory failure. HISTORY OF PRESENT ILLNESS: Mr. Reynaga is a 53-year-old male who is mentally challenged from history of seizure disorder, possible Parkinson disease, and cerebral palsy, who currently resides in a retirement. The patient presented to the emergency room following an episode of vomiting with increased difficulty breathing and increasing oxygen requirements. The patient has had a previous chest x-ray, 08/31/2018, which revealed a right-sided infiltrate, and chest x-ray today reveals bilateral infiltrates which is now worse on the left and improved on the right. The patient cannot communicate with this examiner. PAST MEDICAL HISTORY: 1. Dysphagia, status post PEG tube placement. 2. History of aspiration pneumonia. 3. Cerebral palsy. 4. Seizure disorder. 5. Possible Parkinson disease. 6. Status post tetralogy of Fallot repair. SOCIAL HISTORY: The patient lives in a retirement. No alcohol or tobacco use noted. FAMILY HISTORY: Not immediately available for review. REVIEW OF SYSTEMS: Cannot be obtained. PHYSICAL EXAMINATION: General: A well developed, well nourished male who startles when he is examined. He will not questions. He appears older than his stated age of 53. He is currently on BiPAP. Vital Signs: Blood pressure 136/88, heart rate 103, respiratory rate 22, oxygen saturation 94%. HEENT: Pupils are equal. Oropharynx evaluation is limited. Neck: Supple. Chest: Coarse rhonchi bilaterally. Cardiac: S1, S2. Abdomen: Soft. Extremities: Without edema. LABORATORIES: Chest x-ray as per HPI. White blood count 13.37, hemoglobin 16.9, platelet 424,000. Sodium 132, potassium 4.7, chloride 91, bicarbonate 27. Arterial blood gas on non- rebreather at 12:00 this afternoon: pH 7.52, pCO2 of 34, pO2 of 52. IMPRESSION: A 53-year-old mentally challenged male, who currently resides in a retirement, who has dysphagia with prior aspiration pneumonia. The patient now has a new aspiration pneumonia with leukocytosis, acute hypoxemic respiratory failure. He has improved on BiPAP, but remains marginal. He will be at ongoing risk for recurrent aspiration events. RECOMMENDATIONS: 1. Continue BiPAP. Patient's family has not decided whether he will be a Do Not Resuscitate, and therefore if he has respiratory decline, he will be intubated. 2. Continue current broad-spectrum antibiotics. 3. Maintain n.p.o. status and hold tube feeds until he has clinical and radiographic improvement. 4. Continue current fluid rate. 5. Overall prognosis is guarded given his recurrent aspiration events. cc: Alexis Kennedy MD
[2018-09-12] MEDS: ZANTAC 50 MG in NS 50 ML IV SCH (22:08)
[2018-09-13] MEDS: FLAGYL 500 MG/NS 500 MG/100 ML IVPB IV SCH ×4 (00:11→17:59)
[2018-09-13] MEDS: LOPRESSOR IV SCH ×5 (01:49→21:37)
[2018-09-13] MEDS ORDERED: NS 500 ML IV ONE (03:37)
[2018-09-13] MEDS: NS 1,000 ML IV SCH (04:08)
[2018-09-13] MEDS: ATROVENT NEB INH SCH ×4 (04:46→21:10)
[2018-09-13] MEDS ORDERED: NS 1,000 ML IV SCH (06:02)
--- NOTE | 2018-09-13 06:33 | Diag Imaging Result Doc PS360 ---
CHEST-PORTABLE - 09/13/2018 INDICATION: Pneumonia COMPARISON: 09/12/2018 FINDINGS: There is worsening in the dense left lower lobe infiltrate. Worsening patchy left upper lobe infiltrate. Stable cardiomegaly and pulmonary vascular congestion. Stable ill-defined infiltrates bilaterally suggesting pulmonary edema. IMPRESSION: Worsening focal infiltrates in the left upper and lower lobes. Stable cardiomegaly and pulmonary edema. Electronically signed by Hema Solis 09/13/2018 6:31 AM
[2018-09-13] MEDS: ZANTAC 50 MG in NS 50 ML IV SCH ×3 (06:50→21:13)
[2018-09-13 07:48] LABS: ALLEN TEST NO; BE 0.5 mmoll (-3.0-3.0); BLOOD TYPE ARTERIAL; HCO3-(ACT) 25.3 mmoll (20.0-26.0); METHB 1.6 % (0.0-1.5); O2(CT) 19.3 mL/dL (15.0-23.0); O2HB 95.7 % (95.0-99.0); PCO2(98.6) 30 mmHg (35-45); PO2(98.6) 87 mmHg (60-100); SAMPLE BLOOD; SAO2 98.8 % (95.0-100.0); THB 14.3 g/dL (11.5-17.4); pH(98.6) 7.49 (7.35-7.45)
[2018-09-13 07:54] LABS: MODALITY BI PAP
[2018-09-13] MEDS ORDERED: TYLENOL PR PRN (08:11)
[2018-09-13] MEDS: KEPPRA 500 MG in NS 100 ML IV SCH ×2 (08:24→20:09)
[2018-09-13] MEDS: OFIRMEV 1000 MG/ISOTONIC SOLN 1,000 MG/100 ML BOTTLE IV PRN ×2 (08:24→19:14)
[2018-09-13] MEDS ORDERED: NS 250 ML ONE (08:40)
--- NOTE | 2018-09-13 08:46 | Diag Imaging Result Doc PS360 ---
SHAILESH ABDOMEN - 09/13/2018 INDICATION: high residuals from PEG tube COMPARISON: 08/27/2018 FINDINGS: There is severe rectal stool impaction with a 10 cm stool ball. There is a PEG tube in the upper abdomen. Overall detail is extremely poor. IMPRESSION: Severe rectal stool impaction. Electronically signed by Hema Solis 09/13/2018 8:43 AM
[2018-09-13] MEDS: XOPENEX NEB INH SCH ×3 (09:22→21:10)
[2018-09-13] MEDS ORDERED: TYLENOL PO PRN (09:54)
[2018-09-13 10:09] LABS: HEMOGLOBIN A1C 5.8 % (4.8-6.0)
[2018-09-13 10:21] LABS: HEMATOCRIT 41.6 % (42.0-52.0); HEMOGLOBIN 14.1 g/dL (14.0-18.0); MCH 29.6 PG (27-31); MCHC 33.9 g/dL (33-37); MCV 87.4 FL (81-99); RBC 4.76 XMIL (4.7-6.1); RDW 14.4 % (11.5-14.5); WBC 12.78 X1000 (4.8-10.8)
[2018-09-13 10:22] LABS: BASO# 0.02 X1000 (0.0-0.2); BASO% 0.2 % (0.0-0.8); EOS# 0.06 X1000 (0.0-0.7); EOS% 0.5 % (0.0-10.0); IMM GRAN# 0.12 X1000 (0.0-0.04); IMM GRAN% 0.9 % (0.0-0.5); LYMPH# 0.68 X1000 (1.2-3.4); LYMPH% 5.3 % (20.5-51.1); MONO# 0.37 X1000 (0.11-0.59); MONO% 2.9 % (1.7-9.3); MPV 10.3 FL (7.4-10.4); NEUT# 11.53 X1000 (1.4-6.5); NEUT% 90.2 % (42.2-75.2); PLT 261 X1000 (130-400)
[2018-09-13] MEDS ORDERED: FLEET MINERAL OIL ENEMA PR PRN (10:23)
[2018-09-13 10:58] LABS: POTASSIUM 4.4 mmol/L (3.5-5.1)
[2018-09-13 10:59] LABS: ALB/GLOB RATIO 0.8; ALBUMIN 2.7 g/dL (3.5-5.0); CALCIUM 8.8 mg/dL (8.8-10.2); CREATININE 1.3 mg/dL (0.7-1.2); TOTAL BILIRUBIN 1.03 mg/dL (0.20-1.00); TOTAL PROTEIN 6.1 g/dL (6.3-8.3)
[2018-09-13] MEDS ORDERED: VANCOMYCIN 2 GM in NS 500 ML IV SCH ×2 (11:00→12:00)
[2018-09-13 11:03] LABS: BANDS 52 % (0-1); LYMPHS 4 % (21-51); MONO 1 % (1-9); SEGS 43 % (42-75)
[2018-09-13] MEDS ORDERED: NEO-SYNEPHRINE 50 MG in NS 250 ML IV SCH (11:15)
[2018-09-13] MEDS ORDERED: LASIX IV SCH (11:15)
--- NOTE | 2018-09-13 11:15 | EKG Report ---
Test Performed on : 09/13/2018 09:35:27 AM Test Reason : EKG Blood Pressure : / mmHG Vent. Rate : 120 BPM Atrial Rate : 120 BPM P-R Int : 134 ms QRS Dur : 154 ms QT Int : 346 ms P-R-T Axes : 068 -73 056 degrees QTc Int : 489 ms Sinus tachycardia. with fusion complexes Right bundle branch block Left anterior fascicular block Bifascicular block Abnormal ECG When compared with ECG of 12-SEP-2018 15:35, (Unconfirmed) fusion complexes are now present aberrant conduction. is no longer present Criteria for Anterior infarct are no longer present Confirmed by Asif BAUTISTA, Missael Hammonds ([id number]) on 09/13/2018 3:53:14 PM
--- NOTE | 2018-09-13 11:34 | Diag Imaging Result Doc PS360 ---
EXAM: CHEST-PORTABLE HISTORY: PICC line placement TECHNIQUE: Chest single view COMPARISON: 5:28 AM FINDINGS: Interval placement of the left-sided PICC line. Tip overlies the right atrium. There are bilateral infiltrates with no significant change. IMPRESSION: PICC line in good position. Electronically signed by El Che 09/13/2018 11:32 AM
--- NOTE | 2018-09-13 11:38 | PROGRESS NOTE ---
DATE: 09/13/2018 SUBJECTIVE: Patient is still working very hard to breathe. He is still very short of breath. Overnight, he has had a lot of production of output from his gastrostomy tube. OBJECTIVE: Currently, blood pressure is 85/60, heart rate 102, respiratory rate of 25, temperature was 101.4 degrees. Cardiovascular: Regular rate and rhythm. Pulmonary: Bilateral breath sounds clear to auscultation. GI: Soft, nontender, nondistended. Bowel sounds were positive. His NG output is dark black, brownish-black. He has got diffuse rhonchi and wheezing, rales at the bases. Laboratory Data: His white count is 12, hemoglobin and hematocrit are 14 and 41, platelets 261,000. PH 7.49, pCO2 of 30, PaO2 of 87, lactate is still 3.5. His BUN and creatinine have jumped up to 50 and 1.3. His chest x-ray shows worsening infiltrates bilaterally. The patient, to me, is just not as well. It looks like he is deteriorating but his respiratory status is holding. He is on a partial nonrebreather, where he was full nonrebreather yesterday. Micro is negative thus far. His chest x-ray shows worsening focal infiltrates in the upper and lower lobes. Abdomen shows a fecal impaction and that is after several bowel movements. PROBLEM LIST: 1. Acute respiratory failure due to presumed aspiration pneumonia. We will continue empiric antibiotics and follow. 2. Pulmonary toilet and manage. Pulmonary is following closely. 3. Aspiration type pneumonia. There may be issues with his current nasogastric tube. We will continue to follow closely. 4. Malfunctioning percutaneous endoscopic gastrostomy tube. We will get a gastroenterology consult. He has been placed on Zantac as we have a proton pump inhibitor shortage. He may need to be rescoped. We will continue to monitor. 5. Acute kidney injury. This may be related to hypotension and shock. I am going to stop his vancomycin, avoid anything nephrotoxic. He did get a little bit of Toradol. He has at least gotten 1 dose of vancomycin. I have stopped his Levaquin because of a seizure history and I have switched him to cefepime. We will monitor his kidney function. He probably would benefit from some diuresis. We will see how things look. 6. Disposition. Pending his clinical status. Prognosis is guarded. He has very poor functional status at baseline and now he is unable to eat. Family, at this point though, wants everything done. We will get a palliative care consult and follow. I appreciate cardiology and pulmonary input. We will follow closely. cc: Andreas Thurston MD
[2018-09-13] MEDS: CLINIMIX E 4.25%-5% SOLUTION 1,000 ML IV SCH (12:07)
[2018-09-13] MEDS: MAXIPIME 2 GM in NS 100 ML IV SCH ×2 (12:12→23:08)
[2018-09-13] MEDS: ZYVOX 600 MG/D5W 600 MG/300 ML IVPB IV SCH ×2 (12:15→23:08)
--- NOTE | 2018-09-13 12:46 | CARDIOLOGY CONSULTATION ---
DATE: 09/13/2018 REQUESTING PHYSICIAN: Consultation requested by the emergency room physician in conjunction with the Hospitalist Service because of abnormal EKG and a concern for myocardial infarction. HISTORY: Mr. Reynaga is an unfortunate, 53-year-old, male, who has been staying at the [facility] for the past 2 years on account of progressive Parkinson's disease on top of underlying cerebral palsy and inability of being cared for by the family. His mother, who is the next of kin who watches after him, has chronic health issues that prevent her from taking care of him. At any rate, the patient was found to be in relatively good health up until the day prior to admission. His mother saw him on 09/11/2018, and he appeared to be doing well. The next day, the mother received a phone call from the group home stating that he might have "aspirated," and was being rushed to the hospital. When he came to the ER, there was some exchange between the ambulance people and the ER doctor on duty that led to believe that his electrocardiogram was abnormal and the patient perhaps had an acute myocardial infarction. When compared to multiple previous EKGs, his EKG had not really changed. He was tachycardic. They have done thus far, 4 troponin levels, all of them negative. His EKG shows exactly the same pattern of sinus tachycardia with a right bundle branch block, a left anterior fascicular block, and some PACs. The patient is not complaining of any chest pain. He has just been dyspneic. Mother is sitting at the bedside, and she states that this presentation is fairly similar to the one that took place first in 03/2016 after an episode of pneumonia, and then again on 08/22/2018, which was just 3 weeks ago with another bout of pneumonia. The patient only makes some noises, and from time to time appears to be responsive. Right now, he is nonverbal. He has a high flow oxygen mask on his face. His chest x-ray done first in the ER at 10:34 in the morning showed shifting infiltrates bilaterally, and the one done subsequently showed worsening focal infiltrates in the left upper and lower lobes, and the final x-ray done today was done after insertion of a PICC line. PAST MEDICAL HISTORY: Positive for Parkinson's disease diagnosed about 5 years ago, and followed by Dr. Greer in [place]. He has cerebral palsy. They recently inserted a percutaneous gastrostomy tube on him for alimentation because of dysphagia and the fear that he could aspirate. He has had a tetralogy of Fallot diagnosed as a , and operated at the age of 4 at [facility]. He has had a seizure disorder. PAST SURGICAL HISTORY: As I said, operation of tetralogy of Fallot at the age of 4, and a PEG tube insertion just recently. SOCIAL HISTORY: He is a resident of a group home. He is not a smoker, nor a drinker. FAMILY HISTORY: Noncontributory. ALLERGIES: Sedative and muscle relaxants. HOME MEDICATIONS: Included acetaminophen, Bisacodyl, carbidopa/levodopa, docusate, Keppra, multivitamin, omeprazole, pramipexole 1.5 at bedtime and 1 mg in the morning, Zantac 150 daily, rasagiline mesylate 0.5 mg daily, transderm scopolamine every 3 days, tamsulosin 0.4 mg twice a day. REVIEW OF SYSTEMS: Noncontributory. His functional status is very limited because of his Parkinson's. He walks a little bit at the group home with assistance. He really requires care [id number]. PHYSICAL EXAMINATION: Vital Signs: Blood pressure 112/71, pulse 122, respiration of 24, temperature 101.4 degrees. General: He is awake, alert, no distress. HEENT: Unremarkable. Chest: Diminished breath sounds diffusely. Heart: Heart sounds are tachycardic. Question of fourth heart sound. Abdomen: Nontender. Extremities: Palpable pulses. No edema. Neurological: He has stiffness, rigidity in the hands. He is nonverbal right now. He appears to be acutely ill. LABORATORY AND DIAGNOSTIC DATA: Sodium 132, potassium 4.7, BUN 17, creatinine 0.8. AST 40, ALT 45. As I said, a 12-lead EKG shows sinus tachycardia, right bundle branch block, no acute ST-segment shifts. IMPRESSION: 1. Patient who basically presents tachycardic secondary to pneumonia, probably aspiration. 2. History of Parkinson's. 3. Status post percutaneous endoscopic gastrostomy tube. 4. History of previous repair of tetralogy of Fallot with a residual subpulmonic stenosis, which has been documented by echocardiography back in 03/2016. 5. Abnormal electrocardiogram with a right bundle branch block, left anterior fascicular block. This is an old feature, nothing new. There is no acute myocardial infarction on this patient. RECOMMENDATION: At this time, from Cardiology, we will obtain a followup echocardiogram to make sure that nothing has changed. If that is the case, we will sign off immediately since this patient would not be really having any cardiac condition that we need to deal with. Thank you for asking us to participate in his evaluation. cc: Nabeel Ledesma MD MTDD
[2018-09-13] MEDS ORDERED: LEVAQUIN 750 MG/D5W 750 MG/150 ML IVPB IV SCH (13:00)
[2018-09-13] MEDS ORDERED: GOLYTELY PO ONE (14:00)
--- NOTE | 2018-09-13 14:53 | GASTROENTEROLOGY CONSULTATION ---
DATE: 09/13/2018 REASON FOR CONSULTATION: Leakage from PEG tube. HISTORY OF PRESENT ILLNESS: This is a 53-year-old male who has a history of cerebral palsy and Parkinson's disease. He was just in the hospital recently, and was discharged on 09/04/2018. The patient went back to [facility], where he has been for several years. During his last hospitalization, he was admitted for aspiration pneumonia. It was deemed necessary for PEG tube placement. That was done on 09/01/2018. Prior to his discharge, the patient had been tolerating his feedings well with normal residuals. The patient's mother is currently at the bedside. She states he had been doing well until the day of admission, when they called and said they thought he had aspirated. He had respiratory distress. There was concern of possible myocardial infarction, and he has been seen by Cardiology with no indications of VA at this time. His cardiac enzymes have been normal. At the time of my evaluation, the patient was having an echocardiogram. I have spoken with the mother. She is not sure if he has had problems with his bowel movements over the last several days. She was not told by the [facility] of any issues with his bowels. On evaluation with imaging, abdominal x-ray on 09/13/2018 showed severe rectal stool impaction. There was severe rectal stool impaction with a 10 cm stool ball. PEG tube was in place. The patient's nurse reports that he has had high residuals since admission. The patient's nurse states he has had several liquid stools since admission. She reports some drainage from the PEG tube site. PAST MEDICAL HISTORY: Cerebral palsy, seizure disorder, Parkinson's disease, aspiration pneumonia with recent hospitalization. PAST SURGICAL HISTORY: Tetralogy of Fallot repair, PEG tube placed on 09/01/2018. ALLERGIES: Sedatives and relaxants. HOME MEDICATIONS: Tylenol 650 mg every 6 hours as needed, bethanechol chloride 5 mg 3 times a day, Dulcolax 10 mg daily as needed, Sinemet 25/100 one four times a day, Colace 100 mg twice a day, Keppra 500 mg twice a day, Theragran multivitamin 1 daily, omeprazole 1 tablet daily, MiraLAX 17 grams every night as needed, Mirapex 1.5 mg every night, Mirapex 1 mg every day, Zantac 150 mg daily, rasagiline mesylate 0.5 mg daily, scopolamine 1 every 3 days, nasal spray twice a day, tamsulosin 0.4 mg twice a day. SOCIAL HISTORY: He resides at [facility]. PHYSICAL EXAMINATION: Vital Signs: Temperature 99.2 degrees, pulse 114, respirations 29, blood pressure 111/63. General: The patient is with eyes open. He did not speak at the time of my evaluation. Respiratory: With some rhonchi noted. Cardiovascular: Regular rate and rhythm. GI: Soft, nontender. Positive bowel sounds. PEG tube site with a small amount of redness around the skin. I did notice a small amount of dark drainage at the site. Neurologic: The patient has eyes open. Did not follow commands or speak at the time of my evaluation. Extremities: No lower extremity edema noted. LABORATORY DATA: Hematology 12.78, hemoglobin 14.1, hematocrit 41.6, MCV 87.4, platelets 261,000. Coagulation: ProTime 13.6, INR 0.97, PTT 27.6. Chemistry: Sodium 143, potassium 4.4, chloride 104, CO2 of 24, BUN 50, creatinine 1.3, glucose 127. IMAGING: Abdominal x-ray showed severe rectal stool impaction with 10 cm stool ball. PEG tube in place. ASSESSMENT: 1. Acute respiratory failure, aspiration pneumonia. The patient is on antibiotics. 2. Rectal stool impaction, high feeding residuals related to impaction. The patient has order for an enema. We will also add 1 liter of GoLYTELY today, and then repeat tomorrow. Further plans will be made according to results. 3. Other medical problems, including acute kidney injury, history of cerebral palsy, Parkinson's disease, history of seizure disorder per medical team. Continue current medications. PLAN: We will give GoLYTELY in addition to the enema already ordered. High residuals most likely related to impaction. Further plans will be made according to progress and results. I have discussed this case with Dr. Boyd. Thank you for this consultation. Dictated by LISA Bronson for Edward Boyd MD cc: LISA Almeida MD [facility]
--- NOTE | 2018-09-13 20:45 | PULMONOLOGY PROGRESS NOTE ---
DATE: 09/13/2018 SUBJECTIVE: The patient has mild increased work of breathing. He is currently tolerating non- rebreather. OBJECTIVE: Vital Signs: Maximum temperature in the last 24 hours is 101.4 degrees. Blood pressure 113/62, heart rate 120, respiratory rate 30, oxygen saturation 99%. HEENT: Pupils are equal and reactive. Oropharynx is clear. Neck: Is supple. Chest: Reveals coarse rhonchi bilaterally. Cardiac exam: S1-S2. Abdomen: Is firm with good bowel sounds. Extremities: Without edema. LABORATORIES: Chest x-ray reveals diffuse bilateral infiltrates. EKG reveals bifascicular block with effusion complexes. Urine culture is growing a gram-negative otis. White blood count 12.78, hemoglobin 14.1, platelet count 261,000. Sodium 143, potassium 4.4, chloride 104, bicarbonate 24, BUN 50, creatinine 1.3, glucose 127. IMPRESSION: A 53-year-old mentally challenged male with: 1. Aspiration pneumonia. 2. Stool impaction. 3. Cardiac dysrhythmias. 4. Acute hypoxemic respiratory failure. 5. Fevers. 6. Leukocytosis. PLAN: 1. Continue oxygen as needed to maintain saturations. Will use non-rebreather and BiPAP as necessary. 2. Maintain NPO status until he has clinical improvement from his aspiration pneumonia. 3. Continue broad-spectrum antibiotics. 4. Continue fluid rate for current infectious process. 5. Overall prognosis is guarded. The patient remains a full resuscitation at this juncture. cc: Alexis Kennedy MD
[2018-09-14] MEDS: FLAGYL 500 MG/NS 500 MG/100 ML IVPB IV SCH ×4 (00:44→18:26)
--- NOTE | 2018-09-14 01:10 | ECHO REPORT ---
ORDER DATE: 09/13/2018 MEASUREMENTS: Septal thickness 1.1, left ventricular internal diameter in diastole 4.6, posterior wall thickness 1.1, left ventricular internal diameter in systole 3.7, aortic root 3.8, left atrium 4.0 SUMMARY: 1. Technically difficult study due to limited acoustic window quality. 2. Aortic valve appears without evidence of structural abnormality and opens adequately on 2- dimensional images. Peak gradient across the valve is less than 10 mmHg. Mitral and tricuspid valves are without evidence of structural abnormality while pulmonic valve is not well demonstrated. There is very mild tricuspid regurgitation. Estimated systolic PA pressure by Doppler is 45 to 50 mmHg, suggesting moderate pulmonary hypertension. Aortic root is normal in size. 3. Normal left ventricular dimensions suggested on 2-dimensional images. Estimated left ventricular ejection fraction appears to be at least 50%. No obvious regional wall motion abnormality can be appreciated. Left atrium is borderline enlarged. Right atrium and right ventricle are grossly normal size with grossly preserved right ventricular systolic function. 4. No pericardial effusion. 5. Inferior vena cava not well demonstrated. cc: MD Andreas Garcia MD
[2018-09-14] MEDS: CLINIMIX E 4.25%-5% SOLUTION 1,000 ML IV SCH ×4 (02:25→23:22)
[2018-09-14] MEDS: ATROVENT NEB INH SCH ×4 (03:00→21:14)
[2018-09-14] MEDS ORDERED: NORCURON ONE (03:37)
[2018-09-14] MEDS ORDERED: VERSED ONE (03:37)
[2018-09-14] MEDS ORDERED: QUELICIN ONE (03:38)
[2018-09-14] MEDS ORDERED: AMIDATE ONE (03:38)
[2018-09-14] MEDS ORDERED: AMIDATE IV ONE (03:48)
[2018-09-14] MEDS ORDERED: NORCURON IV ONE (03:49)
[2018-09-14] MEDS ORDERED: NS 1,000 ML ONE (03:52)
[2018-09-14] MEDS ORDERED: DIPRIVAN 1% 1,000 MG/100 ML BOTTLE ONE (03:54)
[2018-09-14] MEDS: LOPRESSOR IV SCH ×4 (03:54→22:19)
[2018-09-14] MEDS ORDERED: NS 1,000 ML IV ONE (03:54)
[2018-09-14] MEDS: ZANTAC 50 MG in NS 50 ML IV SCH ×3 (05:32→21:06)
[2018-09-14 05:34] LABS: BLOOD TYPE ARTERIAL; SAMPLE BLOOD
[2018-09-14 05:35] LABS: ALLEN TEST YES; BE -3.2 mmoll (-3.0-3.0); HCO3-(ACT) 22.4 mmoll (20.0-26.0); METHB 1.1 % (0.0-1.5); O2(CT) 17.9 mL/dL (15.0-23.0); O2HB 94.6 % (95.0-99.0); PCO2(98.6) 43 mmHg (35-45); PO2(98.6) 76 mmHg (60-100); SAO2 97.1 % (95.0-100.0); SRATE 20 BPM; THB 13.4 g/dL (11.5-17.4); TVOL 600 mL; pH(98.6) 7.33 (7.35-7.45)
[2018-09-14 05:36] LABS: MODALITY VENTILATOR
[2018-09-14 06:01] LABS: BASO# 0.02 X1000 (0.0-0.2); BASO% 0.1 % (0.0-0.8); EOS% 0.7 % (0.0-10.0); HEMATOCRIT 40.4 % (42.0-52.0); HEMOGLOBIN 13.3 g/dL (14.0-18.0); IMM GRAN# 0.05 X1000 (0.0-0.04); IMM GRAN% 0.4 % (0.0-0.5); LYMPH# 0.34 X1000 (1.2-3.4); LYMPH% 2.4 % (20.5-51.1); MCH 29.2 PG (27-31); MCHC 32.9 g/dL (33-37); MCV 88.8 FL (81-99); MONO# 0.15 X1000 (0.11-0.59); MONO% 1.1 % (1.7-9.3); MPV 10.2 FL (7.4-10.4); NEUT# 13.57 X1000 (1.4-6.5); NEUT% 95.3 % (42.2-75.2); PLT 228 X1000 (130-400); RBC 4.55 XMIL (4.7-6.1); RDW 14.7 % (11.5-14.5); WBC 14.23 X1000 (4.8-10.8)
[2018-09-14 06:11] LABS: AGAP 16; BUN 41 mg/dL (8-22); CALCIUM 8.3 mg/dL (8.8-10.2); CHLORIDE 107 mmol/L (98-107); COSMO 299; ESTIMATED GFR > 60; GLUCOSE 165 mg/dL (70-104); POTASSIUM 4.6 mmol/L (3.5-5.1); SODIUM 143 mmol/L (136-145); TCO2 20 mmol/L (25-35)
[2018-09-14 06:28] LABS: LYMPHS 3 % (21-51); MONO 1 % (1-9); SEGS 96 % (42-75)
--- NOTE | 2018-09-14 07:21 | Diag Imaging Result Doc PS360 ---
EXAM: CHEST-PORTABLE INDICATION: ET tube placement TECHNIQUE: One view COMPARISON: 09/13/2018 FINDINGS: The left PICC line is in stable position. There has been interval intubation. The tip projects over the lower trachea. It is somewhat low-lying being very near the tatiana. Consider retracting 3 to 4 cm. Patchy airspace consolidations in the mid and lower lung zones bilaterally appears of worsened, especially on the right. Cardiac silhouette is stable. IMPRESSION: 1.Interval placement of ET tube is somewhat low lying. Consider retracting 3 to 4 cm. 2.Interval worsening of bilateral infiltrates. Electronically signed by Marcel Bailey 09/14/2018 7:19 AM
[2018-09-14] MEDS: OFIRMEV 1000 MG/ISOTONIC SOLN 1,000 MG/100 ML BOTTLE IV PRN ×2 (07:25→14:18)
--- NOTE | 2018-09-14 08:27 | PROGRESS NOTE ---
DATE: 09/14/2018 INTERVAL HISTORY: Overnight, the patient's oxygen saturation was dropping and there were concerns about him being able to manage his oxygenation spontaneously, so he was emergently intubated at nighttime. Also polyethylene glycol was tried through his gastrostomy tube. However, it started coming out around the gastrostomy tube with suspicion for leaking, so it was no longer used. He did have a moderate amount of liquid bowel movement. SUBJECTIVE: Patient is currently intubated on propofol. Does not respond. He appears tachypneic. OBJECTIVE: Vital signs: He has been febrile with temperature of 99.8 degrees, pulse is 130 to 150 per minute, MAP maintaining more than 65 mmHg. He is saturating 93% on 100% FiO2. General: He is tachypneic, appears in mild distress. He has a left-sided PICC line, endotracheal tube, North catheter and a gastrostomy tube. He is resisting eye opening. Pulmonary: Bilaterally equal lung sounds with bilateral rhonchi. No wheezes. Bilateral crackles as well. Cardiovascular: S1, S2. Tachycardic. No appreciable murmur, rub, or gallop. Abdomen: Soft. He has a gastrostomy tube. The site appears not inflamed. No bowel sounds. Extremities: No lower extremity edema. Neurologic: He is resisting eye opening. He flickers to painful stimuli in all extremities. LABORATORY DATA: Suggestive of worsening leukocytosis, normocytic anemia, normal platelet count. His pH is 7.3 and PO2 of 76 on 100% FiO2. His electrolytes are normal except low bicarbonate, elevated BUN and normal creatinine. MICROBIOLOGY: Abdomen culture around gastrostomy tube site has gram-negative rods. Sputum culture is in lab. IMAGING: Chest x-ray today suggests interval placement of the ET tube. Interval worsening of bilateral infiltrate. ASSESSMENT AND PLAN: 1. Acute hypoxic respiratory failure due to bilateral aspiration pneumonia. Follow up sputum culture results. Continue oxygenation through mechanical ventilation as per Pulmonology recommendations. Continue intravenous metronidazole and cefepime for his sepsis due to pneumonia with intravenous linezolid. Start patient on intravenous Lasix and titrate dose according to his oxygenation and kidney function. Continue albuterol ipratropium nebulization for bronchial hygiene. 2. Malfunctioning percutaneous endoscopic gastrostomy tube. Gastroenterology has been consulted and currently we are not using the tube until further management. His hemoglobin is currently stable. Continue ranitidine q.8 hours for positive gastric occult blood. 3. History of seizure, Parkinson disease, and cerebral palsy. Continue him on IV levetiracetam for seizure. I will resume his Parkinson disease and cerebral palsy medications as tolerated once we start using the PEG tube. Currently, he is on propofol for sedation. 4. Rectal stool impaction. He has had bowel movements overnight. It is possible that his episode of vomiting and aspiration on presentation could be because of severe constipation. 5. DVT prophylaxis: SCD. Holding chemical prophylaxis considering positive gastric occult blood. 5. Disposition. The patient's condition is critical because of recurrent aspiration events and now need for mechanical ventilation. His current code status is full code. TIME SPENT: More than 30 minutes of critical care time was spent in taking care of this patient. I will discuss his plan of care with his mother later during the day. ADDENDUM: I went to the bedside and discussed Mr. Reynaga's clinical condition with his mother. I informed her about his critical condition and guarded prognosis. I answered all of her questions. cc: Trent Benjamin MD [facility]
[2018-09-14] MEDS: LASIX IV SCH ×3 (08:55→23:08)
[2018-09-14] MEDS: KEPPRA 500 MG in NS 100 ML IV SCH ×2 (09:06→20:15)
[2018-09-14] MEDS: XOPENEX NEB INH SCH ×3 (09:33→21:14)
[2018-09-14] MEDS ORDERED: LOVENOX SUBQ SCH (09:45)
--- NOTE | 2018-09-14 09:57 | PULMONOLOGY PROGRESS NOTE ---
DATE: 09/14/2018 INTERIM HISTORY: The patient had progressive oxygen decrease last night, and failed BiPAP. The patient was intubated earlier this morning. He is now on mechanical ventilation. OBJECTIVE: General: The patient is sedated. Vital Signs: Maximum temperature for the last 24 hours is 100.7 degrees, current temperature 100.3 degrees, heart rate 153, respiratory rate 34, oxygen saturation 95%, blood pressure 89/57. HEENT: Mild temporal wasting. Oropharynx appears clear with endotracheal tube in position. Neck: Supple. Chest: Diffuse rhonchi bilaterally. Cardiac: S1, S2. Abdomen: Soft with positive bowel sounds. Extremities: Significant muscle wasting with heel protectors in place. IMAGING AND LABORATORY DATA: Chest x-ray reveals increase in bilateral pulmonary infiltrates. White blood count 14.23, hemoglobin 13.3, platelet count 228,000. Arterial blood gas following intubation shows pH 7.33, pCO2 of 43, pO2 of 76, with a lactate of 4.9 on 100% FiO2. IMPRESSION: A 53-year-old, mentally challenged male with: 1. Aspiration pneumonia. 2. Acute hypoxemic respiratory failure with worsening. 3. Stool impaction with bowel movement this morning. 4. Cardiac dysrhythmia with ongoing tachycardia. 5. Fevers. 6. Leukocytosis. 7. Severe debilitated status. RECOMMENDATIONS: 1. Intubation and initiation of mechanical ventilation (completed earlier this morning). 2. Sputum for C and S (currently in the lab pending). 3. Continue broad-spectrum antibiotics pending outcome of current culture studies. 4. Routine gastric acid suppression. 5. Continue PPN for nutrition support. 6. Overall prognosis is guarded to poor, and clearly he will be at ongoing risk for aspiration. Mother is at the bedside, and his current prognosis and long-term prognosis were discussed. TIME SPENT: Critical care management was 30+ minutes. cc: Alexis Kennedy MD
[2018-09-14] MEDS: LEVOPHED 8 MG in D5 1/2 NS 250 ML IV SCH (10:57)
[2018-09-14] MEDS: ZYVOX 600 MG/D5W 600 MG/300 ML IVPB IV SCH ×2 (12:33→23:08)
[2018-09-14] MEDS: MAXIPIME 2 GM in NS 100 ML IV SCH (13:00)
[2018-09-14] MEDS: DIPRIVAN 1% 1,000 MG/100 ML BOTTLE IV SCH ×2 (13:06→19:30)
[2018-09-14] MEDS: MERREM 1 GM in NS 50 ML IV SCH ×2 (15:48→21:06)
[2018-09-15] MEDS: FLAGYL 500 MG/NS 500 MG/100 ML IVPB IV SCH ×2 (00:12→06:02)
[2018-09-15] MEDS: DIPRIVAN 1% 1,000 MG/100 ML BOTTLE IV SCH ×4 (01:09→18:19)
[2018-09-15] MEDS: ATROVENT NEB INH SCH ×4 (03:07→21:36)
[2018-09-15] MEDS: CLINIMIX E 4.25%-5% SOLUTION 1,000 ML IV SCH ×2 (03:22→12:16)
[2018-09-15] MEDS: LOPRESSOR IV SCH (03:33)
[2018-09-15 04:49] LABS: ALLEN TEST YES; BE 1.8 mmoll (-3.0-3.0); BLOOD TYPE ARTERIAL; HCO3-(ACT) 26.3 mmoll (20.0-26.0); METHB 0.9 % (0.0-1.5); O2(CT) 17.4 mL/dL (15.0-23.0); O2HB 97.2 % (95.0-99.0); PCO2(98.6) 45 mmHg (35-45); PO2(98.6) 114 mmHg (60-100); SAMPLE BLOOD; SAO2 99.2 % (95.0-100.0); SRATE 20 BPM; THB 12.6 g/dL (11.5-17.4); TVOL 600 mL; pH(98.6) 7.39 (7.35-7.45)
[2018-09-15 04:50] LABS: MODALITY VENTILATOR
[2018-09-15] MEDS: MERREM 1 GM in NS 50 ML IV SCH ×3 (04:59→21:06)
[2018-09-15] MEDS: ZANTAC 50 MG in NS 50 ML IV SCH ×3 (04:59→21:06)
[2018-09-15 05:06] LABS: BASO# 0.01 X1000 (0.0-0.2); BASO% 0.1 % (0.0-0.8); EOS# 0.09 X1000 (0.0-0.7); EOS% 0.8 % (0.0-10.0); HEMATOCRIT 37.7 % (42.0-52.0); HEMOGLOBIN 12.5 g/dL (14.0-18.0); IMM GRAN# 0.07 X1000 (0.0-0.04); IMM GRAN% 0.6 % (0.0-0.5); LYMPH# 0.59 X1000 (1.2-3.4); LYMPH% 5.1 % (20.5-51.1); MCH 29.3 PG (27-31); MCHC 33.2 g/dL (33-37); MCV 88.3 FL (81-99); MONO# 0.21 X1000 (0.11-0.59); MONO% 1.8 % (1.7-9.3); MPV 10.6 FL (7.4-10.4); NEUT# 10.63 X1000 (1.4-6.5); NEUT% 91.6 % (42.2-75.2); PLT 179 X1000 (130-400); RBC 4.27 XMIL (4.7-6.1); RDW 14.7 % (11.5-14.5)
[2018-09-15] MEDS ORDERED: NS 50 ML ONE (05:09)
[2018-09-15 05:21] LABS: AGAP 16; ALB/GLOB RATIO 0.5; ALBUMIN 1.9 g/dL (3.5-5.0); ALKALINE PHOSPHATASE 53 U/L (32-122); BUN 38 mg/dL (8-22); CALCIUM 9.4 mg/dL (8.8-10.2); CHLORIDE 106 mmol/L (98-107); COSMO 303; CREATININE 0.9 mg/dL (0.7-1.2); ESTIMATED GFR > 60; GLUCOSE 159 mg/dL (70-104); GOT 28 U/L (10-34); GPT 21 U/L (10-44); SODIUM 146 mmol/L (136-145); TCO2 24 mmol/L (25-35); TOTAL BILIRUBIN 0.45 mg/dL (0.20-1.00); TOTAL PROTEIN 5.9 g/dL (6.3-8.3)
[2018-09-15 05:50] LABS: MAGNESIUM 1.9 mg/dL (1.5-2.7)
--- NOTE | 2018-09-15 07:07 | Diag Imaging Result Doc PS360 ---
EXAM: CHEST-PORTABLE 09/15/2018 HISTORY: respiratory failure TECHNIQUE: AP portable at 0525 COMMENT: There are patchy alveolar opacities bilaterally. Compared to 09/14/2018 there has been some slight improvement particularly over the right lower lobe. The left PICC line and endotracheal tube as well as NG tube remain. IMPRESSION: Slightly improved pulmonary edema and/or pneumonia. Electronically signed by Lionel Aguilar 09/15/2018 7:05 AM
[2018-09-15] MEDS ORDERED: LOPRESSOR IV PRN (07:22)
--- NOTE | 2018-09-15 08:27 | PROGRESS NOTE ---
DATE: 09/15/2018 INTERVAL HISTORY: The patient has had multiple bowel movements. He put out good urine output on intravenous Lasix. However, he is still net positive. His heart rate was reasonably well controlled, except overnight when it increased to 120 for which he received metoprolol. I have made metoprolol p.r.n. instead of standing. He continues to have pressor requirements. SUBJECTIVE: Patient is intubated, not in any distress. Temperature 97.5 degrees, His cooling blanket is off since last 4 hours, which was started yesterday because of persistent fever. Pulse 94, respiratory 20, MAP more than 65 requiring pressors. PHYSICAL EXAMINATION: General: Not in any acute distress. he has a left-sided PICC line, endotracheal tube, North catheter, rectal tube and gastrostomy tube. Eyes: He is mildly resisting eye opening. However, it looks more like reflex. Pupils are bilaterally equal, reactive to light. Lungs: Air entry bilaterally equal. No wheeze or rhonchi. Crackles bilateral inframammary region. Heart: S1, S2 normal. No murmur, rub, or gallop. Abdomen: Soft. Gastrostomy tube appears noninflamed. No bowel sounds. Extremities: No lower extremity edema. He is moving all extremities to painful stimuli. LABS: Input and output suggest multiple bowel movements in the last 24 hours, suggestive of leukocytosis which is improving. Normocytic anemia. Normal platelet count. His pH is 7.39, PO2 of 114 on 100% FiO2. He does have sodium of 146, potassium of 3. BUN is 38, creatinine of 0.9. MICROBIOLOGY: Gastric occult blood test is positive. His abdomen is growing ESBL. Blood culture has not grown any organisms. Sputum culture is pending. ASSESSMENT AND PLAN: 1. Acute hypoxic respiratory failure and septic shock due to bilateral pneumonia, due to aspiration because of rectal stool impaction. Follow up final culture results. Continue intravenous meropenem for extended spectrum beta lactamase, which was actually growing from his abdominal percutaneous endoscopic gastrostomy tube site wound. Intravenous linezolid and intravenous norepinephrine to maintain MAP more than 65 mmHg. Give as-needed Lasix and continue mechanical ventilation, which he has been requiring since 09/14/2018 according to Pulmonary recommendation with albuterol ipratropium nebulization and bronchial hygiene. 2. Malfunctioning percutaneous endoscopic gastrostomy tube. Gastroenterology has been consulted and he has had multiple bowel movements, and his fecal impaction has resolved. Continue ranitidine every 8 hours for positive gastric occult blood test. 3. History of seizure, Parkinson disease, and cerebral palsy. Continue intravenous levetiracetam and home medications resume once he is more stable. 4. Deep vein thrombosis prophylaxis with sequential compression devices and intravenous ranitidine since intravenous Protonix is in shortage. DISPOSITION: The patient's condition still remains critical considering high oxygen requirement. Plan of care was yesterday discussed with the patient's mother. All of her questions have been answered. cc: Trent Benjamin MD
--- NOTE | 2018-09-15 08:29 | CARDIOLOGY PROGRESS NOTE ---
DATE: 09/15/2018 CHIEF COMPLAINT: Shortness of breath, tachycardia. SUBJECTIVE: Mr. Reynaga was intubated yesterday. He went into severe respiratory failure. Today he is sedated, sitting upright. Nurse is at the bedside. Yesterday patient was hypotensive. According to her, he appears to be more hemodynamically stable. He is on low dose Levophed at this time. OBJECTIVE: Vital signs: He was febrile previously up to 102.2 as of 4 p.m. yesterday. Right now, his temperature is down to 97.5, pulse 94, blood pressure 98/60, respirations 20. He is sedated. He does not really respond to pain at this time. HEENT: Unremarkable. Chest: Diminished breath sounds diffusely. Heart: Sounds regular and rhythmic with a question of a fourth heart sound. Abdomen: Nontender. Extremities: Decreased pulses. No edema. Neurologic: He is sedated. DIAGNOSTIC DATA: Blood work shows BUN of 38, creatinine 0.9, sodium 146, potassium 3.0. Chest X-ray from this morning shows slightly improved pulmonary edema or pneumonia. His EKG from 09/13/2018 shows sinus tachycardia, right bundle branch block, left anterior fascicular block. IMPRESSION: 1. 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 2. Abnormal EKG for many years. No new changes. 3. Respiratory failure secondary to pneumonia, probably aspiration pneumonia. 4. History of cerebral palsy. 5. History of Parkinson's disease with severe impairment of general function. 6. Status post percutaneous gastroscopy tube that appears to be leaking. RECOMMENDATIONS: From a cardiology viewpoint, this patient has really no significant underlying heart issue that we need to deal with. The patient at this time requires general medical care as well as critical care as you are doing per proper specialists. We will stand by. Please call me if you have any specific question that I need to address. Cardiac warner, there is really no change in this patient's condition. cc: Nabeel Ledesma MD [facility]
[2018-09-15] MEDS: POTASSIUM CHLORIDE 20 MEQ/SWI 20 MEQ/100 ML IVPB IV SCH ×2 (09:13→11:37)
[2018-09-15] MEDS: KEPPRA 500 MG in NS 100 ML IV SCH ×2 (09:13→20:39)
[2018-09-15] MEDS: XOPENEX NEB INH SCH ×3 (10:05→21:36)
[2018-09-15] MEDS: LEVOPHED 8 MG in D5 1/2 NS 250 ML IV SCH (11:21)
[2018-09-15] MEDS: ZYVOX 600 MG/D5W 600 MG/300 ML IVPB IV SCH ×2 (11:38→23:14)
[2018-09-15] MEDS: ALBUMIN 25% IV SCH ×3 (12:16→23:14)
--- NOTE | 2018-09-15 15:01 | GASTROENTEROLOGY PROGRESS NOTE ---
DATE: 09/15/2018 SUBJECTIVE: The patient continues to be intubated on mechanical ventilation. He had gastric fluid microbiology that grew out ESBL Escherichia coli. He is on antibiotics. Currently the PEG tube is not in use. Per nurse report, the patient has had multiple bowel movements. OBJECTIVE: Vital signs: Temperature 99.0, pulse 102, respirations 23, blood pressure 92/55. General: The patient is intubated on mechanical ventilation. DIAGNOSTIC DATA: Hematology with WBC of 11.60, hemoglobin 12.5, hematocrit 37.7, MCV is 88.3, platelets 179. Chemistry shows sodium 146, potassium 3.0, chloride 106, CO2 is 24, BUN is 38, creatinine 0.9, glucose 159. ASSESSMENT AND PLAN: 1. Respiratory failure, on mechanical ventilation. 2. Infection at gastrostomy site. The patient is on antibiotics. He is in isolation. 3. Recent fecal impaction. Seems to have resolved. The patient has had multiple bowel movements. 4. History of cerebral palsy, Parkinson disease, history of seizure disorder. Continue current management. 5. Continue current medications. The patient is currently receiving Clinimix, and his feedings are on hold. The patient is having bowel movements. He remains intubated on mechanical ventilation. Continue further management per Medical Team. I have discussed this case with Dr. Boyd. Further plans will be made according to the patient's progress. Dictated by LISA Bronson for Edward Boyd MD cc: LISA Almeida MD
[2018-09-15] MEDS: LASIX IV SCH (16:42)
--- NOTE | 2018-09-15 17:40 | PULMONOLOGY PROGRESS NOTE ---
DATE: 09/15/2018 SUBJECTIVE: The patient is sedated. He appears comfortable on mechanical ventilation. OBJECTIVE: Vital Signs: Maximum temperature in the last 24 hours 102.2 degrees, heart rate 105, blood pressure 95/55 on Levophed. Oxygen saturation 94% on 70% FiO2. HEENT: Pupils are equal and reactive. Oropharynx appears clear. Neck: Supple. Chest: Reveals coarse rhonchi bilaterally. Cardiac: S1, S2. Abdomen: Soft with diminished bowel sounds. Extremities: Reveal 1 to 2+ peripheral edema. LABORATORIES: White blood count 11.6, hemoglobin 12.5, platelet count 179,000. Sodium 146, potassium 3.0, chloride 106, bicarbonate 24, BUN 38, creatinine 0.9, glucose 159, albumin 1.9. White blood count 11.6, hemoglobin 12.5, platelet count 179,000. Arterial blood gas pH 7.39, pCO2 of 45, PO2 of 114 with a lactate of 4.0. Chest x-ray reveals bilateral infiltrates, most severe at the left base. There has been marginal improvement. Microbiology reveals an ESBL positive Escherichia coli from the PEG site and a gram-negative otis in the sputum. IMPRESSION: A 53-year-old with: 1. Aspiration pneumonia. 2. Septic shock. 3. Acute hypoxemic respiratory failure requiring intubation. 4. Cardiac dysrhythmia. 5. Fevers. 6. Protein calorie malnutrition. 7. Leukocytosis. 8. Severely debilitated state due to chronic illness. RECOMMENDATION: 1. Continue with mechanical ventilation and begin weaning as tolerated. 2. Carbapenem for the ESBL positive gram-negative organism affecting his PEG, which may be similar to his sputum culture. 3. Continue PPN. 4. Continue gastric acid suppression. 5. Continue vasopressors for hypotensive shock. 6. We will initiate albumin to help with oncotic pressure. 7. Prognosis is poor overall, but, hopefully, he will survive this hospitalization. Parents are at the bedside. Time spent in critical care management, 30-plus minutes. cc: Alexis Kennedy MD
[2018-09-15] MEDS: OFIRMEV 1000 MG/ISOTONIC SOLN 1,000 MG/100 ML BOTTLE IV PRN (18:20)
[2018-09-16] MEDS: CLINIMIX E 4.25%-5% SOLUTION 1,000 ML IV SCH ×3 (01:01→14:49)
[2018-09-16] MEDS: DIPRIVAN 1% 1,000 MG/100 ML BOTTLE IV SCH ×4 (01:01→15:50)
[2018-09-16] MEDS: LASIX IV SCH (02:52)
[2018-09-16] MEDS: ATROVENT NEB INH SCH ×4 (03:25→23:36)
[2018-09-16 04:30] LABS: BLOOD TYPE ARTERIAL; HCO3-(ACT) 26.5 mmoll (20.0-26.0); METHB 1.1 % (0.0-1.5); PCO2(98.6) 40 mmHg (35-45); PO2(98.6) 168 mmHg (60-100); SAMPLE BLOOD; SAO2 99.9 % (95.0-100.0); THB 11.8 g/dL (11.5-17.4); pH(98.6) 7.43 (7.35-7.45)
[2018-09-16 04:31] LABS: ALLEN TEST YES; O2(CT) 16.5 mL/dL (15.0-23.0); O2HB 97.5 % (95.0-99.0); SRATE 16 BPM; TVOL 600 mL
[2018-09-16 04:34] LABS: MODALITY VENTILATOR
[2018-09-16 05:25] LABS: BASO# 0.02 X1000 (0.0-0.2); BASO% 0.2 % (0.0-0.8); EOS# 0.12 X1000 (0.0-0.7); EOS% 1.3 % (0.0-10.0); HEMATOCRIT 32.4 % (42.0-52.0); HEMOGLOBIN 10.8 g/dL (14.0-18.0); IMM GRAN# 0.07 X1000 (0.0-0.04); IMM GRAN% 0.8 % (0.0-0.5); LYMPH# 1.34 X1000 (1.2-3.4); LYMPH% 14.4 % (20.5-51.1); MCH 28.9 PG (27-31); MCHC 33.3 g/dL (33-37); MCV 86.6 FL (81-99); MONO# 0.24 X1000 (0.11-0.59); MONO% 2.6 % (1.7-9.3); NEUT# 7.49 X1000 (1.4-6.5); NEUT% 80.7 % (42.2-75.2); PLT 125 X1000 (130-400); RBC 3.74 XMIL (4.7-6.1); RDW 14.6 % (11.5-14.5); WBC 9.28 X1000 (4.8-10.8)
[2018-09-16] MEDS: ALBUMIN 25% IV SCH (05:25)
[2018-09-16] MEDS: MERREM 1 GM in NS 50 ML IV SCH ×2 (05:26→14:21)
[2018-09-16] MEDS: ZANTAC 50 MG in NS 50 ML IV SCH ×2 (05:26→14:21)
[2018-09-16 05:44] LABS: AGAP 13; ALB/GLOB RATIO 1.1; ALBUMIN 3.2 g/dL (3.5-5.0); ALKALINE PHOSPHATASE 77 U/L (32-122); BUN 55 mg/dL (8-22); CALCIUM 8.5 mg/dL (8.8-10.2); CHLORIDE 103 mmol/L (98-107); COSMO 302; ESTIMATED GFR > 60; GLUCOSE 165 mg/dL (70-104); GOT 21 U/L (10-34); GPT 18 U/L (10-44); POTASSIUM 3.5 mmol/L (3.5-5.1); SODIUM 142 mmol/L (136-145); TCO2 26 mmol/L (25-35); TOTAL BILIRUBIN 0.77 mg/dL (0.20-1.00); TOTAL PROTEIN 6.1 g/dL (6.3-8.3)
[2018-09-16] MEDS ORDERED: TRANSDERM-SCOP TD SCH ×2 (06:00→18:15)
--- NOTE | 2018-09-16 07:09 | Diag Imaging Result Doc PS360 ---
EXAM: CHEST-PORTABLE 09/16/2018 HISTORY: respiratory failure TECHNIQUE: AP portable at 0514 COMMENT: There is worsening opacification of the right lower lobe compared to 09/15/2018. The endotracheal tube remains in place. There is pH monitor in the distal esophagus. The inspiration is less optimal than on the previous study. The patient is rotated to the right. IMPRESSION: Pulmonary edema and/or pneumonia. Electronically signed by Lionel Aguilar 09/16/2018 7:07 AM
--- NOTE | 2018-09-16 07:38 | Diag Imaging Result Doc PS360 ---
EXAM: KUB ABDOMEN 09/16/2018 HISTORY: Previous impaction TECHNIQUE: KUB COMMENT: Compared to 09/13/2018 the stool which was previously impacted in the rectum appears to be largely evacuated. There is no evidence of bowel obstruction organomegaly or mass. IMPRESSION: Resolution of fecal impaction. Electronically signed by Lionel Aguilar 09/16/2018 7:36 AM
[2018-09-16] MEDS: OFIRMEV 1000 MG/ISOTONIC SOLN 1,000 MG/100 ML BOTTLE IV PRN (07:55)
[2018-09-16] MEDS ORDERED: TYLENOL LIQUID PEG PRN (08:35)
[2018-09-16] MEDS: KEPPRA 500 MG in NS 100 ML IV SCH (08:39)
[2018-09-16] MEDS ORDERED: PRILOSEC PEG SCH (09:00)
--- NOTE | 2018-09-16 09:52 | PROGRESS NOTE ---
DATE: 09/16/2018 INTERVAL HISTORY: Patient did have episode of fever of 100.6 overnight. In the morning time, his ABG had suggested PO2 of 168 on 70% FiO2, and his oxygenation was decreased to 60%. His sedation was turned off, but he started becoming tachypneic, so it was turned back on. SUBJECTIVE: He is lethargic, not opening eyes. VITALS: Temperature of 99.2 currently, pulse of 102, respiratory 27, blood pressure maintaining MAP more than 65 mmHg on 1 mcg per minute of norepinephrine. PHYSICAL EXAMINATION: General: Does not appear in any acute distress. He has a left-sided PICC line, endotracheal tube, a North catheter, rectal tube and gastrostomy tube. He is resisting eye opening. Pupils are bilaterally equal, reacting to light. Lungs: Air entry bilaterally equal. No wheeze or rhonchi. Bilateral crackles. Cardiovascular: S1, S2 normal. No murmur, rub, or gallop. Abdomen: Soft. Gastrostomy tube appears noninflamed. No bowel sounds. Rectal: He has a rectal tube. Extremities: No lower extremity edema. He has recurring both lower extremities to painful stimuli and both upper extremities as well. : Input and output suggests his urine output was 2.1 L. Fecal output was 650 mL. LABS: Suggestive of normocytic anemia, thrombocytopenia. He does appear to have a PO2 of 168, pH of 7.4 and pCO2 of 40. His hypokalemia is resolved. He continues to have elevated BUN. MICROBIOLOGY: Sputum culture is growing gram-negative rods. Culture is pending. Final sensitivity is pending. X-RAYS: Chest x-ray today morning suggests pulmonary edema and/or pneumonia, which is the same as it was before, if not slightly worse. ASSESSMENT AND PLAN: 1. Acute hypoxic respiratory failure and septic shock due to bilateral aspiration pneumonia because of vomiting, because of rectal stool impaction. Follow up final sputum culture results. Continue intravenous meropenem, intravenous linezolid, intravenous norepinephrine to maintain MAP more than 65 mmHg. Continue mechanical ventilation and decrease FiO2 as tolerated. Pulmonology on board. He was intubated on September 14. 2. Malfunctioning percutaneous endoscopic gastrostomy tube which was likely because of his rectal stool impaction, and since he has been having bowel movements after discussion with Gastroenterology, today he would resume using it for medication purposes. His gastric occult blood test was positive. Continue him on intravenous ranitidine, and I will start him on Protonix through percutaneous endoscopic gastrostomy tube. 3. History of seizure, Parkinson disease and cerebral palsy. Continue intravenous levetiracetam. I will resume home Parkinson disease medications as tolerated. 4. Deep venous thrombosis prophylaxis. I will continue mechanical devices. 5. Thrombocytopenia. He has had a significant drop in his platelet count, which could be in the setting of septic shock. I will continue to monitor it. If it continues to drop, I will continue to monitor platelet count. 6. Disposition: More than 30 minutes of critical care time was spent in taking care of this patient. Plan of care discussed with the patient's nursing team. We will continue intravenous nutrition. cc: Trent Benjamin MD
[2018-09-16] MEDS: XOPENEX NEB INH SCH ×3 (10:28→23:36)
[2018-09-16] MEDS ORDERED: LEVOPHED 8 MG in D5 1/2 NS 250 ML IV SCH (11:24)
[2018-09-16] MEDS: ZYVOX 600 MG/D5W 600 MG/300 ML IVPB IV SCH (12:04)
--- NOTE | 2018-09-16 16:10 | PULMONOLOGY PROGRESS NOTE ---
DATE: 09/16/2018 SUBJECTIVE: The patient is sedated. He appears to be comfortable on mechanical ventilation. OBJECTIVE: Vital Signs: Blood pressure 103/63, heart rate 86, respiratory rate 16, oxygen saturation 100% on mechanical ventilation. He remains on vasopressors. HEENT: Pupils are equal and reactive. Oropharynx evaluation appears clear but endotracheal tube limits evaluation. Neck: Is supple. Chest: Reveals coarse rhonchi bilaterally. Cardiac: S1, S2. Abdomen: Soft. Bowel sounds are diminished. Extremities: Reveal trace to 1+ peripheral edema. LABORATORIES: Chest x-ray reveals dense infiltrate, left greater than right. White blood count 9.28, hemoglobin 10.8, platelet count 125,000. Sodium 142, potassium 3.5, chloride 103, bicarbonate 26, BUN 55, creatinine 1.0, total protein 6.1, albumin 3.2. Arterial blood gas, pH 7.43, pCO2 of 40, PO2 of 168 with a lactate of 3.2. IMPRESSION: 53-year-old with 1. Chronic debilitated state associated with cerebral palsy. 2. Aspiration pneumonia. 3. Acute hypoxemic respiratory failure requiring intubation and mechanical ventilation. 4. Septic shock. 5. Protein calorie malnutrition. 6. Leukocytosis. 7. Thrombocytopenia. PLAN: 1. Continue broad spectrum antibiotics covering ESBL organisms. 2. Continue PPN. We will consider feeding through his PEG tube with clinical improvement of bowel function. 3. Continue gastric acid suppression. 4. Continue full ventilatory support. 5. Wean vasopressors as tolerated. 6. Overall prognosis is guarded. cc: Alexis Kennedy MD
[2018-09-16] MEDS ORDERED: ATROPINE 1 % OPHTH SOLN SL PRN (18:15)
--- NOTE | 2018-09-16 18:43 | PROGRESS NOTE ---
DATE: 09/16/2018 GOALS OF CARE DISCUSSION: I evaluated the patient at bedside again. Patient's mother and 3 other family members including brother and [id number] were at bedside. They had extensive discussion among themselves and they had decided to make patient comfort measures only. Their mangle catcher is coming and they decided to extubate him for comfort measures. I explained to them that currently he is on at least 2 life support system with IV pressor medication as well as ventilation and he has bilateral multifocal pneumonia with respiratory failure. I explained to them that he has had prolonged hospitalization over last several weeks and had become significantly deconditioned. I explained to them that even if he had to recover out of current pneumonia episode he would be at risk of developing recurrent aspiration pneumonia in future as well. I also explained to them that considering his prolonged hospitalization, it is possible that he would have become physically deconditioned. The patient's mother explains to me that the 3 goals for Blu was quality of his life, social interaction and eating by mouth and since his multiple medical problems over last couple of months he has not been able to meet all of these 3 goals in this view keeping him on the ventilator with all these machines and wires are making him more uncomfortable so they would want only comfort measures. I explained to them that in that case we would provide him medications to help address his comfort, pain and anxiety and all of our care will be targeted towards helping him feel comfortable. All of family's questions at bedside were answered. More than 30 minutes spent in goals of care discussion. Accordingly I will start patient on intravenous morphine, intravenous Ativan as needed for anxiety and pain, scopolamine patch to manage his secretions with atropine. I will continue him on albuterol ipratropium nebulization and oxygen mask. Plan of care discussed with the nursing team. cc: Trent Benjamin MD MTDYumiko
[2018-09-16] MEDS: ATIVAN IV PRN (20:02)
[2018-09-16] MEDS ORDERED: PRILOSEC ORAL SUSPENSION MISC SCH (21:00)
[2018-09-16] MEDS: MORPHINE IV PRN (21:26)
[2018-09-17] MEDS: ATROVENT NEB INH SCH ×2 (03:31→07:40)
[2018-09-17] MEDS: XOPENEX NEB INH SCH ×2 (03:31→07:40)
[2018-09-17] MEDS: MORPHINE IV PRN ×3 (04:01→15:08)
[2018-09-17] MEDS ORDERED: TYLENOL PEG SCH (07:15)
[2018-09-17] MEDS ORDERED: OFIRMEV 1000 MG/ISOTONIC SOLN 1,000 MG/100 ML BOTTLE IV PRN ×2 (07:17→08:00)
--- NOTE | 2018-09-17 08:10 | PROGRESS NOTE ---
DATE: 09/17/2018 INTERVAL HISTORY: Patient was made comfort measures only yesterday. Overnight he was extubated and has been on 100% non-rebreather mask. SUBJECTIVE: He is obtunded, not responding. He appears tachypneic and using accessory muscles of respiration. OBJECTIVE: Vital Signs: Temperature: He has been febrile overnight. Pulse of 130, respiratory rate 30, blood pressure 90/60, saturating 83%. General: Tachypneic, not responding. HEENT: Oral cavity is dry. Chest: 100% non-rebreather mask is on. He has bilateral rhonchorous breathing. Cardiovascular: Tachycardic, S1, S2 normal. No murmur or gallop. Abdomen: Soft. PEG tube and urine catheter in place. Extremities: No lower extremity edema. LABORATORY DATA: Suggestive of no leukocytosis, normocytic anemia, however, no new labs today. ASSESSMENT AND PLAN: 1. Acute hypoxic respiratory failure and septic shock due to bilateral extended-spectrum beta lactamase Escherichia coli aspiration pneumonia due to vomiting because of rectal stool impaction. 2. Malfunctioning PEG tube. 3. History of seizure, cerebral palsy, Parkinson's disease, chronic dysphagia and recurrent aspiration pneumonia. PLAN: Considering patient's recurrent aspiration pneumonia and worsening dysphagia, learning that the patient could be at risk of recurrent pneumonia and could have poor functional status, family has made him comfort measures only. I will continue to address his pain, anxiety, and discomfort throughout albuterol ipratropium nebulization, intravenous lorazepam, intravenous morphine, scopolamine patch. I will also await palliative care follow-up to see if hospice could be an option for the patient. Plan of care discussed with the patient's mother. All of their questions have been answered. cc: Trent Benjamin MD
[2018-09-17] MEDS: OFIRMEV 1000 MG/ISOTONIC SOLN 1,000 MG/100 ML BOTTLE IV SCH ×2 (08:35→14:10)
[2018-09-17] MEDS: ATIVAN IV PRN ×3 (08:35→14:10)
[2018-09-17] MEDS ORDERED: ATROVENT NEB INH PRN (10:06)
[2018-09-17] MEDS ORDERED: XOPENEX NEB INH PRN (10:06)
--- NOTE | 2018-09-17 15:49 | DISCHARGE SUMMARY ---
ADMISSION DATE: 09/12/2018 DISCHARGE DATE: 09/17/2018 TIME OF : 1525 p.m. CAUSE OF : Aspiration pneumonia. CONTRIBUTING FACTORS: 1. Chronic dysphagia. 2. Septic shock. 3. Cerebral palsy. 4. Parkinson's disease. HOSPITAL COURSE SUMMARY: Mr. Reynaga is 53-year-old, man who was recently in the hospital for aspiration pneumonia requiring PEG tube because of chronic dysphagia and was discharged back to the [facility]. He came in on 09/12/2018 with recurrence of his aspiration pneumonia. Considering his hypoxic respiratory failure, he had to be intubated. He was started on intravenous antibiotics, intravenous vasopressors for acute hypoxic respiratory failure as well as septic shock because of bilateral pneumonia. He was diagnosed with ESBL E. coli pneumonia and was on intravenous meropenem. Considering his breathing status on the ventilator, need for continuous mechanical ventilation, chronic dysphagia, and future risk of aspiration events, and poor quality of life, the family had decided to make comfort measures only. He was extubated on 09/16/2018 and was on comfort measures only. On 09/17/2018, he . I went to the bedside, examined the patient and pronounced him. Family was at bedside. cc: Trent Benjamin MD
[2018-09-17 17:33] VITALS: BP 51/35
== END 2018-09-17 15:25 | disposition expired | DRG 871 ==
LOC: ED 10:07 → ICU 15:23 → SUATTDRO 15:23
PROVIDERS: ATTEND Internal Medicine
CPT/HCPCS: 31500; 36569; 51702; 71010; 71045; 74000; 74018; 80048; 80053; 81001; 82271; 82550; 82805; 82948; 83036; 83605; 83735; 83880; 84100; 84484; 85025; 85610; 85730; 87040; 87070; 87077; 87088; 87186; 87205; 93005; 93010; 93306; 94002; 94003; 94640; 94660; 94761; 94799; 96361; 96365; 99285; A9270; J0131; J0330; J0692; J1885; J1940; J1953; J1956; J2020; J2060; J2185; J2250; J2270; J2780; J3370; J3480; J7030; J7040; J7050; P9047; S0030; XXXXX